=== PATIENT | female | born 1945 | race Caucasian/White ===

== ENCOUNTER → 2016-03-26 | Outpatient (CLI) | payer BC ==
[~2016-03-26] MED LIST: ASCO1CAP3 PO; ASPCH81X PO; CALC500C70 PO; CITA20TA9 PO; GLUCTAB7 PO; NAPR1TAB9 PO; POTA-74 PO; RXC5 PO; TRIA37.5 PO
[2016-03-26 13:59] LABS: BLOOD UREA NITROGEN 22 mg/dl (7-18); BUN/CREATININE RATIO 22.1 (10-20); CALCIUM 9.7 mg/dl (8.5-10.1); CARBON DIOXIDE 27 mmol/L (21-32); CHLORIDE 106 mmol/L (98-107); GLUCOSE 104 mg/dl (70-99); POTASSIUM 3.6 mmol/L (3.5-5.1); SODIUM 142 mmol/L (136-145)
== END ==
LOC: C.LABBC 11:50
PROVIDERS: ATTEND Anesthesiology
DX: Z01.812 Encounter for preprocedural laboratory examination (principal); M25.552 Pain in left hip

== ENCOUNTER 2016-04-22 07:40 | Inpatient (IN) | payer BC, OTHER ==
[2016-03-24 12:59] VITALS: BMI 25.0
--- NOTE | 2016-03-24 13:21 | PAT Medication Instructions ---
Service Date Mar 24, 2016. Current Home Medication List Ascorbic Acid (Vitamin C), 1 CAP PO QAM Aspirin (Aspirin Chewable), 81 MG PO QAM Calcium/Vitamin D (Os-Logan 500 Plus D), 1 TAB PO QAM Citalopram Hydrobromide (Celexa), 20 MG PO QAM Jyohjbtqaqn-Msjwptsaadx-Mqm C- (Glucosamine Chondroitin), 1 TAB PO QAM Naproxen (Aleve), 220 MG PO BID PRN for Pain Potassium Chloride (Potassium Chloride Er), 1 TAB PO QAM Triamterene/Hctz (Dyazide 37.5MG/25MG), 1 CAP PO QAM Medication Instructions For Your Scheduled Surgery - Check with surgeon for instructins: Naproxen (Aleve), 220 MG PO BID PRN for Pain - Hold the following medications 2 weeks prior to surgery: Nwwnjoozvgj-Sxvgporindr-Cqw C- (Glucosamine Chondroitin), 1 TAB PO QAM - Hold the following medications the morning of surgery: Triamterene/Hctz (Dyazide 37.5MG/25MG), 1 CAP PO QAM Potassium Chloride (Potassium Chloride Er), 1 TAB PO QAM Calcium/Vitamin D (Os-Logan 500 Plus D), 1 TAB PO QAM Ascorbic Acid (Vitamin C), 1 CAP PO QAM - Take the following medications the morning of surgery with a sip of water: Citalopram Hydrobromide (Celexa), 20 MG PO QAM Aspirin (Aspirin Chewable), 81 MG PO QAM (okay to continue per surgeon) If you have any questions please call us at [phone] (Lizbeth Almanza PA-C) or [phone] or [phone]
[2016-03-24 13:52] LABS: BASO % 0.3 %; BASO ABS # 0.02 K/uL (0-0.2); COMPLETE YES; EOS % 1.1 %; HEMATOCRIT 41.8 % (37-47); IG% 0.3 %; LYMPH % 21.3 %; MEAN CELL VOLUME 91.7 fL (80-100); MEAN CORPUSCULAR HEMOGLOBIN 31.4 pg (25-34); MEAN CORPUSCULAR HGB CONC 34.2 g/dl (32-36); MEAN PLATELET VOLUME 9.9 fL (7.4-10.4); MONO % 6.9 %; NEUT % 70.1 %; PLATELET COUNT 256 K/uL (130-400); RED BLOOD COUNT 4.56 M/uL (4.2-5.4); WHITE BLOOD COUNT 7.99 K/uL (4.8-10.8)
[2016-03-24 14:05] LABS: URINE APPEARANCE CLEAR (CLEAR); URINE BILIRUBIN NEG (NEG); URINE COLOR YELLOW; URINE NITRITE NEG (NEG); URINE PH 5.5 (4.5-7.5); URINE SPECIFIC GRAVITY 1.009 (1.000-1.030); UROBILINOGEN NEG (NEG)
--- NOTE | 2016-03-24 14:07 | DIAGNOSTIC IMAGING REPORT ---
CHEST PREADMISSION(PA/LAT) CLINICAL HISTORY: Preoperative chest COMPARISON STUDY: 12/25/2013 FINDINGS: The cardiac and mediastinal contours are normal. There is no evidence of focal pulmonary consolidation. There is no evidence of failure. No pleural effusions are visualized.[ IMPRESSION: No active disease in the chest. Electronically signed by: Carlo Tavarez M.D. 03/24/2016 2:05 PM Dictated Date/Time: 03/24/2016 2:04 PM
[2016-03-24 14:08] LABS: INR 1.1 (0.9-1.1); PROTHROMBIN TIME (PATIENT) 11.7 SECONDS (9.0-12.0)
[2016-03-24 14:12] LABS: MANUAL MICROSCOPIC REQUIRED? NO; REVIEW REQ? NO
[2016-03-24 14:24] LABS: BUN/CREATININE RATIO 22.5 (10-20); CALCIUM 9.7 mg/dl (8.5-10.1); CREATININE 1.1 mg/dl (0.60-1.20); POTASSIUM 3.7 mmol/L (3.5-5.1)
--- NOTE | 2016-04-21 17:45 | HISTORY & PHYSICAL EXAMINATION ---
DATE OF ADMISSION: 04/22/2016 HISTORY AND PHYSICAL ADMISSION NOTE CHIEF COMPLAINT: Primary osteoarthritis of the left hip. HISTORY OF PRESENT ILLNESS: Nathalie is a pleasant 70-year-old female who has been having a 6-month history of increasing left hip pain. She does not recall any traumatic event. X-ray showed mild osteoarthritis of the hip, so I sent her for intra-articular injections, which only helped briefly. I then got an MRI which showed significant arthritis of the left hip. After failing conservative treatment, she has elected to proceed with a left total hip arthroplasty. PAST MEDICAL HISTORY: Significant for hypertension, GERD. PAST SURGICAL HISTORY: Significant for umbilical hernia repair. MEDICATIONS: Include Celexa 20 mg daily, potassium 10 mEq daily, Dyazide 37.5/12.5 daily, aspirin 81 mg daily. ALLERGIES: None. FAMILY HISTORY: Noncontributory. SOCIAL HISTORY: She is with 3 children. She tries to remain active. She denies any alcohol, tobacco or IV drug use. REVIEW OF SYSTEMS: She complains of left hip pain. All other pertinent review of systems are negative. PHYSICAL EXAMINATION: GENERAL: She is awake, alert and oriented x3. She is in no apparent distress. She is very pleasant. HEENT: Pupils are equal, round and reactive to light. Extraocular motion intact. Oral mucosa is pink and moist. HEART: Regular rate per radial pulse. LUNGS: Maya symmetrically bilaterally with no audible breath sounds. ABDOMEN: Soft, nontender, nondistended. MUSCULOSKELETAL: On physical examination of the left hip, she ambulates independently. There is no significant limp. She has good range of motion with internal and external rotation, but she does have reproducible groin pain. Her leg lengths are essentially equal. IMAGING DATA: X-rays of the left shoulder do show some mild osteoarthritis with small osteophyte formation and a slight loss of joint space. MRI of the left hip does show more advancing osteoarthritis with significant subchondral edema. IMPRESSION: Moderate to severe osteoarthritis of the left hip. PLAN: Will proceed with a Biomet taper lock left total hip arthroplasty. Postoperatively, she will be kept at the hospital for postoperative medical management and started on aspirin for DVT prophylaxis.
[~2016-04-22] VITALS: Ht 167.6 cm; Wt 69.4 kg
[2016-04-22] VITALS (9 sets, daily range): BP systolic 109–162; BP diastolic 64–84; PULSE 58–86; TEMP 36.3–36.7; O2SAT 97–100; Ht 167.6 cm; Wt 69.4 kg
--- NOTE | 2016-04-22 06:22 | History & Physical Bridge Note ---
H&P Re-Evaluation Bridge Note: I have examined the patient, reviewed the History & Physical and in the interval since the performance of the History & Physical I have noted the following changes of clinical significance: No changes noted
[~2016-04-22 07:40] MED LIST changes: +ACETAMINOPHEN 500 MG TAB PO SCH; +BUPIVACAINE 0.5 % 5 MG/1 ML PF 10ML VIAL ONE; +CEFAZOLIN 2000 MG/60 ML D5W 60 ML IV SCH; +FAMOTIDINE 20 MG TAB PO SCH; +GABAPENTIN 300 MG CAP PO SCH; +LACTATED RINGER'S 1000ML 1,000 ML IV SCH; +LACTATED RINGER'S 1000ML IV SCH; +ROPIVACAINE 5MG/ML 30 ML 150 MG, BUPIVACAINE/EPINEPHR 0.5% MPF 30 ML, KETOROLAC TROMETH... INFIL SCH; -RXC5 PO
[2016-04-22] MEDS ORDERED: LIDOCAINE HCL 2% 2 ML VIAL (20MG/ML) ONE (07:47)
[2016-04-22] MEDS ORDERED: MIDAZOLAM HCL 1 MG/ML 2ML VIAL ONE (07:47)
[2016-04-22] MEDS ORDERED: PROPOFOL IV EMULSION 10 MG/ML 20 ML VIAL IV ONE (07:47)
[2016-04-22] MEDS ORDERED: FENTANYL CITRATE INJ 50 MCG/1 ML 2 ML VIAL ONE (07:48)
[2016-04-22] MEDS ORDERED: NURSING VERBAL MED ORDER STA (09:16)
[2016-04-22] MEDS ORDERED: ONDANSETRON INJ 2 MG/ML 2 ML VIAL IV PRN ×2 (09:30→12:15)
[2016-04-22] MEDS ORDERED: FENTANYL CITRATE INJ 50 MCG/1 ML 2 ML VIAL IV PRN (09:30)
[2016-04-22] MEDS ORDERED: EpHEDrine SULFATE INJ 50 MG/ML AMP IV PRN (09:30)
[2016-04-22] MEDS ORDERED: ATROPINE SULFATE 0.1 MG/ML 5ML SYR IV PRN (09:30)
[2016-04-22] MEDS ORDERED: BACITRACIN 50000 UNIT VIAL ONE (09:42)
[2016-04-22] MEDS ORDERED: ORTHO JOINT ANESTHETIC ONE (09:42)
[2016-04-22] MEDS: TRANEXAMIC ACID AMP 1,000 MG in NSS 100ML IV SCH ×2 (10:00→13:42)
[2016-04-22] MEDS ORDERED: PHENYLEPHRINE 100MCG/ML 5ML SYR ONE (11:32)
[2016-04-22] MEDS ORDERED: ESMOLOL HCL 10 MG/ML 10 ML VIAL ONE (11:48)
--- NOTE | 2016-04-22 12:09 | [facility] Post Operative Brief Note ---
Immediate Operative Summary Operative Date Apr 22, 2016. Pre-Operative Diagnosis Moderate to severe osteoarthritis of the left hip Post-Operative Diagnosis Moderate to severe osteoarthritis of the left hip Procedure(s) Performed Total left hip arthroplasty, direct anterior approach Surgeon Dr. Jeison Villa Filler Picker Surgeon(s) Dr. Murali Green Estimated Blood Loss 50ML Findings as above Specimens A: Left femoral head Complication(s) None Disposition Recovery Room / PACU
[2016-04-22] MEDS ORDERED: MAGNESIUM HYDROXIDE SUSP 30 ML UDC PO PRN (12:15)
[2016-04-22] MEDS ORDERED: SOD PHOSPHATE/SOD BIPHOSPHATE ENEMA 132 ML BTL PR PRN (12:15)
[2016-04-22] MEDS ORDERED: SILVER SULFADIAZINE 1% CR 50 GM JAR EXT PRN (12:15)
[2016-04-22] MEDS ORDERED: MoRPHine SULFATE 2 MG/ML CARP IV PRN (12:15)
[2016-04-22] MEDS ORDERED: OXYCODONE HCL IR 5 MG TAB (IMMEDIATE RELEASE) PO PRN (12:15)
[2016-04-22] MEDS ORDERED: METOCLOPRAMIDE HCL INJ 5 MG/ML 2 ML VIAL IV PRN (12:15)
--- NOTE | 2016-04-22 12:26 | DIAGNOSTIC IMAGING REPORT ---
INTRAOPERATIVE LEFT HIP SINGLE VIEW CLINICAL HISTORY: Left hip arthroplasty COMPARISON STUDY: No previous studies for comparison. FINDINGS: 41 seconds of fluoroscopic time was utilized. A single AP intraoperative fluoroscopic spot image is provided for interpretation. There are postsurgical changes of a total left hip arthroplasty. No dislocation is evident. IMPRESSION: Intraoperative fluoroscopic spot image demonstrating postsurgical changes of a total left hip arthroplasty Electronically signed by: Carlo Tavarez M.D. 04/22/2016 12:24 PM Dictated Date/Time: 04/22/2016 12:24 PM
--- NOTE | 2016-04-22 12:36 | OPERATIVE REPORT ---
DATE OF OPERATION: 04/22/2016 PREOPERATIVE DIAGNOSIS: Progressing osteoarthritis of the left hip. POSTOPERATIVE DIAGNOSIS: Same. PROCEDURE: Left total hip arthroplasty through a direct anterior approach. SURGEON: Dr. Jeison Villa. LIVING ADVISOR: Brandon Kwok PA-C, whose assistance was necessary for positioning of the leg and helping with instrumentation as well as Dr. Earle Green M.D. ANESTHESIA: Spinal. COMPLICATIONS: None. CONDITION: Stable to PACU. IMPLANTS USED: I used a Biomet Taperloc size 12 high offset femoral component with a size 50 G7 cup, a single 30 mm screw, a 36 mm neutral E1 liner and a 36 mm -3 ceramic head. No cement was used during the case. INDICATIONS: Nathalie is a pleasant 70-year-old female who presented to my office with progressive left hip and groin pain. X-rays did not look too bad but MRI showed advanced osteoarthritis of the hip. After failing conservative treatment including hip injections, she elected to undergo a total hip arthroplasty. OPERATION AND FINDINGS: On 04/22/2016 she arrived at [facility] for the above procedure. She was seen in the preoperative holding area and the operative extremity was identified and signed. She was given a preoperative antibiotic and taken back to the operating room, laid on the table in supine position and put under basic sedation. The left hip was then prepped and draped in sterile fashion. Time-out was done and the patient and operative extremity was properly identified. A direct anterior approach was used. Dissection was taken down to the tensor fascia and the tensor muscle and sartorius were split. The rectus was released off the anterior femoral neck and the capsule was exposed. The circumflex vessels were tied off and ligated. The capsule was then released and tagged. The femoral neck was then resected and the femoral head was removed. The acetabulum was then exposed. Time was spent doing a complete circumferential capsular and labral release. Sequential reaming up to a size 49 reamer was done. Adequate placement of the cup was checked under fluoroscopy. A size 50 cup was then impacted into place and a single 30 mm anterior rotational screw was placed. She 81 poly liner was then snapped into place. The proximal femur was then exposed. Sequential broaching up to a size 12 broach was done. A standard head was first trialled. It felt a little bit long, so a -3 head was trialled and I was happy with the leg length. This was all checked on fluoroscopic imaging. The final size 12 high offset Taperloc stem was then impacted into place followed by a ceramic 36 mm -3 head. The hip was reduced and I was happy with the overall leg lengths. The wound was irrigated with normal saline solution. The surrounding soft tissues were injected with 100 mL of an orthopedic pain control cocktail mix. The capsule was then closed with #1 Vicryl, the fascia was closed with #1 Vicryl, skin was closed with 2-0 Vicryl and 3-0 V-Loc suture and Prineo dressing. A drain was placed. She was then extubated, [facility] and taken to the postanesthesia care unit in stable condition. She tolerated the procedure well. I attest to the content of the Intraoperative Record and any orders documented therein. Any exceptio ns are noted below.
--- NOTE | 2016-04-22 12:41 | Anesthesiology Progress Note ---
Anesthesia Post Op Note Date & Time Apr 22, 2016 at 12:41 Vital Signs Pain Intensity: 0 Vital Signs Past 12 Hours Date Time Temp Pulse Resp B/P Pulse Ox O2 Delivery O2 Flow Rate FiO2 04/22/16 12:30 92 14 120/72 100 Nasal Cannula 3 04/22/16 12:20 90 14 126/71 100 Nasal Cannula 3 04/22/16 12:17 36.1 100 16 116/84 100 Nasal Cannula 3 04/22/16 07:59 36.3 69 20 162/78 99 Room Air Notes Mental Status: alert / awake / arousable, participated in evaluation Pt Amnestic to Procedure: Yes Nausea / Vomiting: adequately controlled Pain: adequately controlled Airway Patency, RR, SpO2: stable & adequate BP & HR: stable & adequate Hydration State: stable & adequate Neuraxial Anesthesia: was administered, sensory block is resolving Anesthetic Complications: no major complications apparent
--- NOTE | 2016-04-22 13:03 | DIAGNOSTIC IMAGING REPORT ---
LEFT PELVIS/UNILATERAL HIP 1 VIEW CLINICAL HISTORY: Left hip arthritis. Total hip arthroplasty. COMPARISON: MRI of the left hip February 13, 2016. FINDINGS: Alignment of the total left hip arthroplasty is anatomic. There is no fracture or unexpected radiopaque foreign body. Acetabular screw is present. There is a surgical drain. IMPRESSION: Expected findings following total left hip arthroplasty. Electronically signed by: Hieu Frank M.D. 04/22/2016 1:01 PM Dictated Date/Time: 04/22/2016 1:01 PM
[2016-04-22] MEDS ORDERED: NURSING VERBAL MED ORDER ONE (14:45)
[2016-04-22] MEDS ORDERED: COUGH DROP (SUGAR FREE) LOZ 24 LOZ/1 BOX PO PRN (15:00)
[2016-04-22] MEDS: D5W AND 1/2NSS + 20MEQ KCL 1,000 ML IV SCH (16:10)
[2016-04-22] MEDS: KETOROLAC TROMETHAMINE 15 MG/ML VIAL IV. SCH ×2 (17:46→23:50)
[2016-04-22] MEDS: CEFAZOLIN IV 2,000 MG in DEXTROSE 5% 50ML 50 ML IV SCH (17:46)
[2016-04-22] MEDS: ASPIRIN 325 MG ECTAB PO SCH (21:11)
[2016-04-22] MEDS: DOCUSATE SODIUM 100 MG CAP PO SCH (21:12)
[2016-04-22] MEDS: ACETAMINOPHEN IV 1,000 MG in EMPTY BAG 0 ML IV SCH (21:12)
[2016-04-22] MEDS: SENNA 8.6 MG TAB PO SCH (21:12)
[2016-04-23] MEDS: CEFAZOLIN IV 2,000 MG in DEXTROSE 5% 50ML 50 ML IV SCH (01:41)
[2016-04-23] MEDS: D5W AND 1/2NSS + 20MEQ KCL 1,000 ML IV SCH ×2 (01:41→11:11)
[2016-04-23 03:37] VITALS: BP 105/56; PULSE 69; TEMP 36.8; O2SAT 97
[2016-04-23] MEDS: KETOROLAC TROMETHAMINE 15 MG/ML VIAL IV. SCH ×4 (05:54→23:52)
[2016-04-23] MEDS: ACETAMINOPHEN IV 1,000 MG in EMPTY BAG 0 ML IV SCH ×2 (05:55→14:17)
[2016-04-23 07:19] LABS: BASO % 0.1 %; BASO ABS # 0.01 K/uL (0-0.2); COMPLETE YES; EOS % 0.1 %; HEMATOCRIT 32.8 % (37-47); IG% 0.3 %; LYMPH % 7.1 %; LYMPH ABS # 1.09 K/uL (1.2-3.4); MEAN CELL VOLUME 90.4 fL (80-100); MEAN CORPUSCULAR HEMOGLOBIN 31.1 pg (25-34); MEAN CORPUSCULAR HGB CONC 34.5 g/dl (32-36); MEAN PLATELET VOLUME 9.7 fL (7.4-10.4); MONO % 8.4 %; PLATELET COUNT 194 K/uL (130-400); RED BLOOD COUNT 3.63 M/uL (4.2-5.4)
[2016-04-23 07:28] VITALS: BP 107/62; PULSE 70; TEMP 36.5; O2SAT 97
--- NOTE | 2016-04-23 07:49 | Anesthesiology Progress Note ---
Anesthesia Post Op Note Date & Time Apr 23, 2016 at 07:49 Vital Signs Vital Signs Past 12 Hours Date Time Temp Pulse Resp B/P Pulse Ox O2 Delivery O2 Flow Rate FiO2 04/23/16 07:28 36.5 70 19 107/62 97 Room Air 04/23/16 03:37 36.8 69 16 105/56 97 Room Air 04/22/16 23:46 Room Air 04/22/16 23:03 36.7 80 16 109/64 97 Notes Mental Status: alert / awake / arousable, participated in evaluation Pt Amnestic to Procedure: Yes Nausea / Vomiting: adequately controlled Pain: adequately controlled Airway Patency, RR, SpO2: stable & adequate BP & HR: stable & adequate Hydration State: stable & adequate Neuraxial Anesthesia: was administered, sensory block resolved Anesthetic Complications: no major complications apparent
[2016-04-23 07:52] LABS: BUN/CREATININE RATIO 15.2 (10-20); CALCIUM 8.3 mg/dl (8.5-10.1); CREATININE 1.1 mg/dl (0.60-1.20); POTASSIUM 3.6 mmol/L (3.5-5.1)
[2016-04-23] MEDS: DOCUSATE SODIUM 100 MG CAP PO SCH ×2 (09:43→21:28)
[2016-04-23] MEDS: ASCORBIC ACID 500 MG TAB PO SCH (09:44)
[2016-04-23] MEDS: CITALOPRAM 20 MG TAB PO SCH (09:44)
[2016-04-23] MEDS: TRIAMTERENE/HCTZ 37.5/25MG CAP PO SCH (09:44)
[2016-04-23] MEDS: CALCIUM 600MG + VIT D 400 IU TAB PO SCH (09:45)
[2016-04-23] MEDS: PANTOprazole SOD 40 MG TAB PO SCH (09:45)
[2016-04-23] MEDS: ASPIRIN 325 MG ECTAB PO SCH ×2 (09:45→21:28)
[2016-04-23 10:58] VITALS: BP 119/72; PULSE 73; TEMP 36.6; O2SAT 99
[2016-04-23 15:03] VITALS: BP 118/71; PULSE 73; TEMP 36.8; O2SAT 96
[2016-04-23 15:15] VITALS: O2SAT 96
--- NOTE | 2016-04-23 15:51 | Discharge Instructions ---
Discharge Instructions Admission Reason for Admission: Left Hip Osteoarthritis Discharge Discharge Diagnosis / Problem: L MONI Discharge Goals Goal(s): Decrease discomfort, Improve function Activity Recommendations Activity Limitations: resume your previous activity Shower/Bathe: may shower/bathe in 3 days may shower on Wednesday, leave glue dressing in place . Instructions / Follow-Up Instructions / Follow-Up in [address] Villa Current Hospital Diet Patient's current hospital diet: Regular Diet Discharge Diet Recommended Diet: Regular Diet Procedures Procedures Performed: Total left hip arthroplasty, direct anterior approach Pending Studies Studies pending at discharge: no Medical Emergencies . Who to Call and When: Medical Emergencies: If at any time you feel your situation is an emergency, please call 911 immediately. . Non-Emergent Contact Non-Emergency issues call your: Surgeon Call Non-Emergent contact if: wound has increased drainage, wound has increased redness . "Provider Documentation" section prepared by Jeison Villa. VTE Core Measure Inpt VTE Proph given/why not?: Other Anticoagulation (Aspirin 325 twice a day for 6 weeks)
[2016-04-23] MEDS ORDERED: RXC5 PO (15:52)
--- NOTE | 2016-04-23 16:02 | PROGRESS NOTE ---
DATE: 04/23/2016 DATE: 04/23/2016. CHIEF COMPLAINT: Status post left total hip arthroplasty postop day #1. PROGRESS: Nathalie was seen and examined at bedside today. Overall, she is doing very well. She says she has little to no pain in her hip. She has been ambulating around the nurses' station. She has no complaints. PHYSICAL EXAMINATION: LEFT HIP: The dressing is clean and dry and the drain is to suction. She has no numbness over the femoral cutaneous nerve. She has active dorsiflexion and plantarflexion of her left ankle. Her leg lengths are essentially equal. LABORATORIES: She has an H\T\H today of 11.3 and 32.8. Her glucose is 146. Her vital signs are all stable on room air. She is voiding on her own. X-rays postoperatively of the left hip show the prosthesis to be in near anatomic alignment without any evidence of fracture, dislocation or loosening. IMPRESSION: Status post left total hip arthroplasty postop day #1. PLAN: At this point, she is doing extremely well. She is very happy with her progress. She has little to no pain in her hip. She can continue to be up and ambulating. Tomorrow the nursing staff will change her dressing, pull the drain so we can discharge her to home.
[2016-04-23] MEDS: SENNA 8.6 MG TAB PO SCH (21:28)
[2016-04-23 22:56] VITALS: BP 130/79; PULSE 87; TEMP 37.2; O2SAT 98
[2016-04-24] MEDS: KETOROLAC TROMETHAMINE 15 MG/ML VIAL IV. SCH ×2 (05:37→11:44)
[2016-04-24 06:34] VITALS: BP 138/73; PULSE 87; TEMP 37.3; O2SAT 95
--- NOTE | 2016-04-24 06:57 | PROGRESS NOTE ---
DATE: 04/24/2016 CHIEF COMPLAINT: Status post left total hip arthroplasty postop day #2. PROGRESS: Nathalie was seen and examined at bedside today. Overall, she is doing very well. She really has no pain in her hip. She has been up and ambulating with physical therapy. She has no complaints. PHYSICAL EXAMINATION: LEFT HIP: The dressing has been changed and drain has been pulled. The Prineo dressing is intact and looks good. She is neurovascularly intact. IMPRESSION: Two weeks status post left total hip arthroplasty. PLAN: At this point, she is doing very well. She is happy with her progress. She has very little pain in her hip. We are going to discharge her to home later this morning.
--- NOTE | 2016-04-24 07:15 | DISCHARGE SUMMARY ---
DISCHARGE DIAGNOSIS: Primary osteoarthritis of the left hip. PROCEDURE: Left total hip arthroplasty on 04/22/[address] Villa. DISCHARGE INSTRUCTIONS: 1. Oxycodone 5-10 mg every 4 hours as needed for pain. 2. Aspirin 325 mg twice a day for DVT prophylaxis. 3. Knee high RUI hose stockings for 6 weeks. 4. Follow up with Dr. Villa in 2 weeks. 5. Call the office of Dr. Villa with any questions or concerns. 6. Vitamin C 500 mg daily. 7. Os-Logan 500 mg daily. 8. Celexa 20 mg daily. 9. Glucosamine chondroitin daily. 10. Aleve 220 mg twice a day. 11. Potassium 10 mEq daily. 12. Dyazide 37.5/25 mg daily. HOSPITAL COURSE: Nathalie is a pleasant 70-year-old female who presented to my office with increasing left hip pain. X-rays and MRI were indicative of progressive arthritis, left hip. After failing conservative treatment, she elected to undergo a left total hip arthroplasty. On 04/22/2016 she arrived at [facility] for the above procedure. She was seen in the preoperative holding area and the operative extremity was identified and signed. She laid on the table in supine position with a spinal anesthetic. She then underwent a left total hip arthroplasty through a direct anterior approach without complications. Postoperatively, she was discharged to general orthopedic floor. Her hospital course was uneventful. On postop day #1 her H\T\H was stable at 11.3 and 32.8. She was up and ambulating well with physical therapy. Her vital signs were stable. On postop day #2 she continued to do well. The dressings were changed, the drain was pulled and she was subsequently discharged to home with the above instructions.
[2016-04-24] MEDS: CALCIUM 600MG + VIT D 400 IU TAB PO SCH (07:48)
[2016-04-24] MEDS: CITALOPRAM 20 MG TAB PO SCH (07:48)
[2016-04-24] MEDS: TRIAMTERENE/HCTZ 37.5/25MG CAP PO SCH (07:48)
[2016-04-24] MEDS: ASCORBIC ACID 500 MG TAB PO SCH (07:48)
[2016-04-24] MEDS: PANTOprazole SOD 40 MG TAB PO SCH (07:49)
[2016-04-24] MEDS: ASPIRIN 325 MG ECTAB PO SCH (09:14)
[2016-04-24] MEDS: DOCUSATE SODIUM 100 MG CAP PO SCH (09:14)
[2016-04-24 10:50] VITALS: BP 138/73; PULSE 87; TEMP 37.3; O2SAT 95
== END 2016-04-24 14:01 | disposition home health service (06) | DRG 470 ==
LOC: ENRESERVDT → ENRESERVTM → C.ACU 07:40 → C.MSW 09:45
PROVIDERS: ADMIT Orthopaedic Surgery; ATTEND Orthopaedic Surgery
PROC: 0SRB04A Replacement of Left Hip Joint with Ceramic on Polyethylene Synthetic Substitute, Uncemented, Open Approach (ICD-10-PCS; principal; 2016-04-22 09:45)
DX: M16.12 Unilateral primary osteoarthritis, left hip (principal); I10 Essential (primary) hypertension; F41.9 Anxiety disorder, unspecified; M81.0 Age-related osteoporosis without current pathological fracture; Z79.82 Long term (current) use of aspirin; Z79.899 Other long term (current) drug therapy

== ENCOUNTER → 2016-09-11 | Outpatient (CLI) | payer BC ==
[~2016-09-11] MED LIST changes: -ACETAMINOPHEN 500 MG TAB PO SCH; -ASPCH81X PO; -BUPIVACAINE 0.5 % 5 MG/1 ML PF 10ML VIAL ONE; -CEFAZOLIN 2000 MG/60 ML D5W 60 ML IV SCH; -FAMOTIDINE 20 MG TAB PO SCH; -GABAPENTIN 300 MG CAP PO SCH; -LACTATED RINGER'S 1000ML 1,000 ML IV SCH; -LACTATED RINGER'S 1000ML IV SCH; -ROPIVACAINE 5MG/ML 30 ML 150 MG, BUPIVACAINE/EPINEPHR 0.5% MPF 30 ML, KETOROLAC TROMETH... INFIL SCH; +RXC5 PO
--- NOTE | 2016-09-11 12:44 | MAMMOGRAPHY REPORT ---
BILATERAL DIGITAL SCREENING MAMMOGRAM WITH CAD: 09/11/2016 CLINICAL HISTORY: Routine screening. TECHNIQUE: Current study was also evaluated with a Computer Aided Detection (CAD) system. Bilateral CC and MLO views were obtained. COMPARISON: Comparison is made to exams dated: 09/10/2015 mammogram, 09/05/2014 mammogram, 05/15/2013 ma mmogram, 05/12/2012 mammogram, 04/22/2011 mammogram, and 04/21/2010 mammogram - [facility] nter. BREAST COMPOSITION: There are scattered areas of fibroglandular density in both breasts. FINDINGS: No suspicious masses, calcifications, or areas of architectural distortion are noted in ei ther breast. There has been no significant interval change compared to prior exams. Bilateral benign -appearing calcifications are not significantly changed. Small circumscribed benign-appearing right breast masses are also stable. IMPRESSION: ACR BI-RADS CATEGORY 2: BENIGN There is no mammographic evidence of malignancy. A 1 year screening mammogram is recommended. The pa tient will receive written notification of the results. Approximately 10% of breast cancers are not detected with mammography. A negative mammographic report should not delay biopsy if a clinically suggestive mass is present. Ines Abbasi M.D. ah/:09/11/2016 08:08:00 Storeroom Supervisor: Cynthia NELSON(Ezekiel)(M), [facility] letter sent: Normal 1/2 BI-RADS Code: ACR BI-RADS Category 2: Benign
== END | disposition home or self-care (01) ==
LOC: C.MAMM 07:33
PROVIDERS: ATTEND Obstetrics & Gynecology
DX: Z12.31 Encounter for screening mammogram for malignant neoplasm of breast (principal)

== ENCOUNTER → 2016-12-03 | Outpatient (CLI) | payer BC ==
[2016-12-03 13:40] LABS: BASO % 0.3 %; BASO ABS # 0.02 K/uL (0-0.2); COMPLETE YES; EOS % 1.2 %; HEMATOCRIT 42.8 % (37-47); IG% 0.2 %; LYMPH % 23.4 %; LYMPH ABS # 1.53 K/uL (1.2-3.4); MEAN CELL VOLUME 93.2 fL (80-100); MEAN CORPUSCULAR HEMOGLOBIN 31.4 pg (25-34); MEAN CORPUSCULAR HGB CONC 33.6 g/dl (32-36); MEAN PLATELET VOLUME 10.2 fL (7.4-10.4); MONO % 10.1 %; NEUT % 64.8 %; PLATELET COUNT 264 K/uL (130-400); RED BLOOD COUNT 4.59 M/uL (4.2-5.4); WHITE BLOOD COUNT 6.55 K/uL (4.8-10.8)
[2016-12-03 14:07] LABS: ALT/SGPT 29 U/L (12-78); BLOOD UREA NITROGEN 22 mg/dl (7-18); BUN/CREATININE RATIO 22.4 (10-20); CALCIUM 9.8 mg/dl (8.5-10.1); CARBON DIOXIDE 28 mmol/L (21-32); CHLORIDE 107 mmol/L (98-107); CHOLESTEROL 216 mg/dl (0-200); GLUCOSE 104 mg/dl (70-99); SODIUM 141 mmol/L (136-145); TRIGLYCERIDES 188 mg/dl (0-150); VERY LOW DENSITY LIPOPROT CALC 38 mg/dl
[2016-12-03 14:18] LABS: ALB/GLOB RATIO 1.3 (0.9-2); ALKALINE PHOSPHATASE 91 U/L (45-117); AST/SGOT 19 U/L (15-37); CHOLESTEROL/HDL RATIO 4.6; HDL CHOLESTEROL 47 mg/dl; LDL CHOLESTEROL CALCULATED 131 mg/dl
== END | disposition home or self-care (01) ==
LOC: C.LABBC 10:28
PROVIDERS: ATTEND Internal Medicine
DX: M81.0 Age-related osteoporosis without current pathological fracture (principal); K21.9 Gastro-esophageal reflux disease without esophagitis; F41.1 Generalized anxiety disorder; E04.1 Nontoxic single thyroid nodule; Z78.0 Asymptomatic menopausal state; I10 Essential (primary) hypertension

== ENCOUNTER 2018-02-14 07:30 | Inpatient (IN) ==
[2018-02-14] MEDS ORDERED: MoRPHine SULFATE 2 MG/ML CARP IV PRN (09:28)
[2018-02-14] MEDS ORDERED: MoRPHine SULFATE 4 MG/ML 1 ML CARP\\VIAL IV PRN (09:28)
[2018-02-14] MEDS ORDERED: ONDANSETRON INJ 2 MG/ML 2 ML VIAL IV PRN ×2 (09:28→14:54)
[2018-02-14] MEDS ORDERED: D5NSS + 20MEQ KCL 20 MEQ/1,000 ML BAG IV SCH (11:30)
--- NOTE | 2018-02-14 12:02 | Gastrointestinal Consultation ---
Date of Consultation February 14, 2018 Assessment & Plan (1) Elevated liver enzymes: 72 year old female with elevated LFTs, improving abdominal pain, resolved nausea/vomiting imaging concerning for gallstones w/ biliary dilation. Her LFTs have been increasing. - Will review labs today when they are available - Hold MRCP - Will plan for ERCP today - Keep NPO - Analgesia PRN - Antiemetics PRN - Indocin 100 mg PA on hold to the OR - GI to follow. Thank you for allowing us to participate in the care of this patient. Please call with any acute changes, questions or concerns. Please see addendum below with additional recommendation from my supervising physician. Supervising Physician Co-Signing Physician Notes I performed a history and physical examination of the patient, including specifically on physical exam - soft, nontender abdomen. I have discussed the patient's management with Jane. Please refer to the nurse practitioner's note for the documented findings and plan of care. 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 Plan: ERCP today to decompress her CBD. EUS/ FNA as OP. History of Present Illness Reason for Consultation: elevated transaminasas Requesting Physician: Karyn Attending Physician: Rodney Boss MD, FACS History of Present Illness 72 year old female with history of GERD, HTN who presents as a direct admission for concerns of choledocolithiasis. Pt was seen and evalated, chart reviewed. Notes she has been having epigastric abdominal pain w/ radiation to her back associated w/ nausea and vomiting. Notes her nausea/vomiting resolved but has persistent RUQ pain and back pain. Moving bowels well. No black or bloody stools. No fever but has had chills. No CP, SOB. No blood thinners ASA 81 daily TB trending up GB US: Mildly distended gallbladder with large amount of gallbladder sludge and mild shadowing cholelithiasis. No sonographic evidence of acute cholecystitis. Mild intrahepatic biliary ductal dilation is again noted along with dilation of the common bile duct. If there is clinical concern for choledocholithiasis a follow-up ERCP may be considered.Indeterminate 1.6 cm lesion of the inferior pole right kidney redemonstrated. Liver US: Mildly distended gallbladder with associated cholelithiasis and gallbladder sludge. No sonographic evidence of acute cholecystitis. Mild intrahepatic biliary ductal dilation is noted in conjunction with dilation of the common bile duct. No obstructing stone or lesion identified on these images. These findings could be correlated with ERCP if of further clinical concern. Indeterminate 2.1 cm lesion of the inferior pole right kidney. This finding could be correlated with a follow-up nonemergent CT renal mass protocol to exclude underlying neoplasm. Allergies Allergy/AdvReac Type Severity Reaction Status Date / Time No Known Allergies Allergy Verified 02/10/18 17:37 Home Medications Home Medications Medication Instructions Recorded Confirmed Type ascorbic acid (vitamin C) [Vitamin 500 mg PO DAILY 02/10/18 02/10/18 History C] calcium carbonate-vitamin D3 1 tab PO QAM 02/10/18 02/10/18 History [Calcium 500 + D] citalopram 20 mg PO DAILY 02/10/18 02/10/18 History glucosamine-chondroitin 1 tab PO DAILY 02/10/18 02/10/18 History naproxen sodium [Aleve] 220 mg PO BID PRN 02/10/18 02/10/18 History omeprazole 20 mg PO DAILY 02/10/18 02/10/18 History potassium chloride [Klor-Con M10] 10 meq PO DAILY 02/10/18 02/10/18 History ranitidine HCl [Zantac Maximum 150 mg PO HS 02/10/18 02/10/18 History Strength] triamterene-hydrochlorothiazid 1 cap PO DAILY 02/10/18 02/10/18 History Patient History Medical History Anxiety Depression H/O gastroesophageal reflux (GERD) Hearing deficit Hypertension Osteoarthritis Skin cancer Surgical History History of total hip arthroplasty April 2016 History of herniorrhaphy Social History Current Living Situation: Family Current Living Situation Comment: lives with daughter Other Information That Helps Us Care for You: No Feels Safe at Home: Yes Safety Concerns: Feels Safe At This Time Smoking Status: Never smoker Do You Dip or Chew Tobacco: No Hx Alcohol Use: No Hx Substance Use: No Beliefs That Will Affect Care: None Preferred Language: Israeli Communication Ability: Effective [employer] Essbase Developer Required: No Review of Systems Constitutional: no fever and no chills Respiratory: no cough and no chest congestion Cardiovascular: no chest pain, no palpitations and no syncope Gastrointestinal: no abdominal pain, no early satiety, no vomiting, no blood in stools and no melena Physical Exam 2 Vital Signs (Past 24 Hours): Last Vital Signs Temp 36.3 C L 02/14/18 11:34 Resp 18 02/14/18 11:34 BP 148/74 H 02/14/18 11:34 Pulse Ox 99 02/14/18 11:34 Constitutional: well developed, well nourished, cooperative and comfortable Respiratory: normal respiratory effort, lungs clear to auscultation Cardiovascular: RRR, no murmur, no edema Gastrointestinal (Abdomen): normal bowel sounds, soft, nontender, no hepatosplenomegaly Skin: + jaundice Results & Data Laboratory Results 02/14/18 02/14/18 Range/Units 11:48 11:48 WBC 6.88 (4.8-10.8) K/uL RBC 4.61 (4.2-5.4) M/uL Hgb 14.6 (12.0-16.0) g/dL Hct 43.3 (37-47) % MCV 93.9 (80-100) fL MCH 31.7 (25-34) pg MCHC 33.7 (32-36) g/dL RDW Std Deviation 43.8 (36.4-46.3) fL RDW Coeff of Td 12.8 (11.5-14.5) % Plt Count 287 (130-400) K/uL MPV 10.7 H (7.4-10.4) fL Immature Gran % (Auto) 0.3 % Neut % (Auto) 64.3 % Lymph % (Auto) 21.7 % Dubois % (Auto) 11.9 % Eos % (Auto) 1.5 % Baso % (Auto) 0.3 % Immature Gran # (Auto) 0.02 (0.00-0.02) K/uL Neut # (Auto) 4.43 (1.4-6.5) K/uL Lymph # (Auto) 1.49 (1.2-3.4) K/uL Dubois # (Auto) 0.82 H (0.11-0.59) K/uL Eos # (Auto) 0.10 (0-0.5) K/uL Baso # (Auto) 0.02 (0-0.2) K/uL Sodium Pending Potassium Pending Chloride Pending Carbon Dioxide Pending Anion Gap Pending BUN Pending Creatinine Pending Est Cr Clr Drug Dosing Pending Est GFR ( Amer) Pending Est GFR (Non-Af Amer) Pending BUN/Creatinine Ratio Pending Glucose Pending Calcium Pending Total Bilirubin Pending Direct Bilirubin Pending AST Pending ALT Pending Alkaline Phosphatase Pending Total Protein Pending Albumin Pending Lipase Pending
[2018-02-14 12:03] LABS: Basophils # (auto) 0.02 K/uL (0-0.2); Basophils % (auto) 0.3 %; Eosinophils % (auto) 1.5 %; Hematocrit (blood only) 43.3 % (37-47); Hemoglobin 14.6 g/dL (12.0-16.0); Immature Granulocytes # (auto) 0.02 K/uL (0.00-0.02); Immature Granulocytes % (auto) 0.3 %; Lymphocytes # (auto) 1.49 K/uL (1.2-3.4); Lymphocytes % (auto) 21.7 %; Mean Corpuscular Hgb Conc 33.7 g/dL (32-36); Mean Corpuscular Volume 93.9 fL (80-100); Mean Platelet Volume 10.7 fL (7.4-10.4); Monocytes # (auto) 0.82 K/uL (0.11-0.59); Monocytes % (auto) 11.9 %; Neutrophils # (auto) 4.43 K/uL (1.4-6.5); Neutrophils % (auto) 64.3 %; Platelet Count 287 K/uL (130-400); RDW Coefficient of Variation 12.8 % (11.5-14.5); RDW Standard Deviation 43.8 fL (36.4-46.3); Red Blood Count 4.61 M/uL (4.2-5.4); White Blood Count 6.88 K/uL (4.8-10.8)
[2018-02-14 12:27] LABS: Alanine Aminotransferase 420 U/L (12-78); Albumin Level 4.4 gm/dl (3.4-5.0); Aspartate Aminotransferase 181 U/L (15-37); BUN Creatinine Ratio 19.6 (10-20); Bilirubin Direct 3.2 mg/dl (0-0.2); Blood Urea Nitrogen 24 mg/dl (7-18); Calcium 9.8 mg/dl (8.5-10.1); Carbon Dioxide 30 mmol/L (21-32); Chloride 104 mmol/L (98-107); Est GFR (African American) 50.5; Est GFR (Non-African American) 43.6; Glucose 118 mg/dl (70-99); Potassium 3.9 mmol/L (3.5-5.1); Sodium 140 mmol/L (136-145)
[2018-02-14 12:30] LABS: Alkaline Phosphatase 224 U/L (45-117); Bilirubin,Total 4.4 mg/dl (0.1-1); Total Protein 8.1 gm/dl (6.4-8.2)
--- NOTE | 2018-02-14 13:44 | Magnetic Resonance Report ---
MRCP CLINICAL HISTORY: Elevated hepatic transaminases. Cholelithiasis. Upper abdominal pain. Nausea and vo miting. COMPARISON STUDY: Abdominal ultrasound dated 02/10/2018. TECHNIQUE: Abdominal MRCP is performed utilizing various T2-weighted sequences in the axial and coron al planes. IV contrast was not administered for this examination. 3-D reformats are created and asses sed. FINDINGS: The gallbladder is distended and contains layering sludge and gallstones. There is intra and extrahep atic biliary ductal dilatation. The proximal common bile duct is dilated and measures up to 12 mm in diameter. Additionally, the majority of the pancreatic duct is dilated and irregular. This measures up to 3.5 mm. There is focal cutoff of the pancreatic duct in the region of the pancreatic head as we ll as the common bile duct in this region secondary to a pancreatic head mass. This measures approxim ately 4 x 3 x 3 cm, and is best seen on coronal FIESTA image #9. There is no convincing evidence of c holedocholithiasis. The hepatic parenchyma is normal as imaged. The spleen is normal in size. Scattered T2 hyperintense s plenic lesions measure up to 10 mm. These are pathologically indeterminant but statistically of doubt ful significance. A 1.4 cm right adrenal nodule likely represents an adenoma but cannot be definitive ly characterized on today's examination. The kidneys demonstrate cortical atrophy. There are scattere d renal cortical cysts. A 2.2 cm complex lesion arises exophytically from the lower pole of the right kidney seen on image #19. The abdominal aorta is normal in caliber. No bowel obstruction is seen. T here is no abdominal ascites. No pleural effusion is identified. No destructive bony lesion is seen. IMPRESSION: 1. There is dilatation of the common bile duct, the intrahepatic ducts, and the pancreatic duct secon bobby to a mass lesion in the pancreatic head. This should be considered pancreatic adenocarcinoma unt il proven otherwise. 2. There is a 2.2 cm exophytic lesion arising from the lower pole of the right kidney. Although this could represent a complex cyst, this is incompletely characterized and the appearance is concerning f or a renal cell carcinoma. 3. Consider endoscopic ultrasound with biopsy for further assessment of the pancreatic head mass. A c ontrast-enhanced CT scan of the abdomen and pelvis should also be considered for staging. 4. No hepatic lesion is seen. 5. The gallbladder is distended and contains sludge and stones. There is no convincing evidence of ch oledocholithiasis. Dictated: 02/14/2018 1:18 PM Transcribed: 02/14/2018 1:43 PM Jen [id number] [email or web address] Electronically signed by: Gato Cano M.D. 02/14/2018 1:56 PM
[2018-02-14] MEDS ORDERED: PROPOFOL IV EMULSION 10 MG/ML 20 ML VIAL IV ONE (14:34)
[2018-02-14] MEDS ORDERED: fentaNYL citrate 100 MCG/2 ML VIAL ONE (14:34)
[2018-02-14] MEDS ORDERED: LIDOCAINE HCL 2% 2 ML VIAL/AMP(20MG/ML) INFIL ONE (14:34)
--- NOTE | 2018-02-14 14:41 | Anesthesiology Consultation ---
Date of Service February 14, 2018 Assessment & Plan (1) Encounter for pre-operative examination: Chart Review Chart Review: Acceptable Risk for Surgery and Patient NOT seen in Pre Admission Testing Consults Requested none NPO Date Last Intake of Fluids: 02/14/18 Time Last Intake of Fluids: 10:00 History Surgery Operation Date: 02/14/18 07:30 Proposed Procedures p Endoscopic Retrograde Cholangiopancreatogram - Shar Hyatt MD Height/Weight Height: 5 ft 4 in Weight: 61.8 kg Allergies Allergy/AdvReac Type Severity Reaction Status Date / Time No Known Allergies Allergy Verified 02/10/18 17:37 Medications Home Medications Medication Instructions Recorded Confirmed Last Taken ascorbic acid (vitamin C) [Vitamin 500 mg PO DAILY 02/10/18 02/10/18 Unknown C] calcium carbonate-vitamin D3 1 tab PO QAM 02/10/18 02/10/18 Unknown [Calcium 500 + D] citalopram 20 mg PO DAILY 02/10/18 02/10/18 Unknown glucosamine-chondroitin 1 tab PO DAILY 02/10/18 02/10/18 Unknown naproxen sodium [Aleve] 220 mg PO BID PRN 02/10/18 02/10/18 Unknown omeprazole 20 mg PO DAILY 02/10/18 02/10/18 Unknown potassium chloride [Klor-Con M10] 10 meq PO DAILY 02/10/18 02/10/18 Unknown ranitidine HCl [Zantac Maximum 150 mg PO HS 02/10/18 02/10/18 Unknown Strength] triamterene-hydrochlorothiazid 1 cap PO DAILY 02/10/18 02/10/18 Unknown Active Medications Generic Name Dose Route Start Last Admin Trade Name Freq PRN Reason Stop Dose Admin Potassium Chloride/Dextrose/Sod Cl 20 meq in 1,000 mls @ 125 mls/hr 02/14/18 11:30 02/14/18 13:24 D5nss + 20meq Kcl IV 03/16/18 11:29 125 mls/hr .Q8H ANA ROSA Administration Beta Wiley Beta Wiley Taken Within 24 Hours: No Past Medical History Medical History Anxiety Depression H/O gastroesophageal reflux (GERD) Hearing deficit Hypertension Osteoarthritis Skin cancer Past Surgical History Surgical History History of total hip arthroplasty April 2016 History of herniorrhaphy Past Anesthesia History No Hx of Anesthesia Complications and No Family Hx of Anesthesia Complications History of PONV No Motion Sickness Screening History of Motion Sickness: No Social History Smoking Status: Never smoker Do You Dip or Chew Tobacco: No Hx Alcohol Use: No Hx Substance Use: No Exercise / Class Metabolic Activity II 4-5 Yardwork/Stairs/Walk up hill Physical Exam Vital Signs Last Vital Signs Temp 36.6 C 02/14/18 14:48 Pulse 73 02/14/18 14:48 Resp 16 02/14/18 14:48 BP 136/72 02/14/18 14:48 Pulse Ox 98 02/14/18 14:48 Cardiovascular Rate/Rhythm: regular rate and regular rhythm Heart Sounds: + murmur (1/6 systolic murmur. ) Testing Electrocardiogram Date: 03/24/16 Findings: + NSR @ (80) nonspecific ST abnormality. Laboratory Results 02/14/18 11:48 02/14/18 11:48
[2018-02-14] MEDS ORDERED: ATROPINE SULFATE 0.1 MG/ML 5ML SYR IV PRN (14:54)
[2018-02-14] MEDS ORDERED: ePHEDrine sulfate 50 MG/ML AMP IV PRN (14:54)
[2018-02-14] MEDS ORDERED: HYDROmorphone INJ 1 MG/ML SYRINGE IV PRN (14:54)
[2018-02-14] MEDS ORDERED: INDOMETHACIN 50 MG SUPP PR SCH (15:30)
--- NOTE | 2018-02-14 15:54 | Operative Report ---
Post Operative Report Date of Surgery February 14, 2018 Pre & Post Diagnosis Operation Date: 02/14/18 07:30 Pre-Op Diagnosis: jaundice Post-Op Diagnosis: biliary stricture Procedure Operation Date: 02/14/18 07:30 Actual Procedures p Endoscopic Retrograde Cholangiopancreatogram, with sphincterotomy and placement of bile duct stent(Not Applicable) - Shar Hyatt MD Surgeon Shar Hyatt MD Facilities Technician None Estimated Blood Loss 0 Findings See Below (CBD stricture, Shpincterotomy and CBD stent placed) Specimens CBD brush cytology I attest to the content of the Intraoperative Record and any orders documented therein. Any exceptions are noted below.
[2018-02-14] MEDS ORDERED: ONDANSETRON INJ 2 MG/ML 2 ML VIAL ONE (16:07)
--- NOTE | 2018-02-14 16:08 | Fluoroscopy Report ---
FL ERCP biliary ductal CLINICAL HISTORY: EXPLORE DUCTS COMPARISON STUDY: MRCP 02/14/2018. FLUOROSCOPY TIME: 1 minute and 30 seconds. FINDINGS: 9 fluoroscopic spot images. There is no discopathy second portion of duodenum. The ampulla is cannulated and contrast injection into the common bile duct. Dilated biliary system is noted with a tight stricture at the distal common bile duct. This is followed by placement of a common bile duct stent which appears in good position. IMPRESSION: Fluoroscopy provided for common bile duct stent placement. Electronically signed by: Jose A Chavira M.D. 02/14/2018 4:06 PM
--- NOTE | 2018-02-14 16:10 | Anesthesiology Progress Note ---
Date of Service February 14, 2018 Anesthesia Post Procedure Vital Signs Vital Signs: Temp Pulse Pulse Resp BP Pulse Ox 02/14/18 16:03 36.2 C L 103 H 16 153/73 H 100 02/14/18 14:48 36.6 C 73 16 136/72 98 02/14/18 11:34 36.3 C L 18 148/74 H 99 Pain Intensity Right Upper Back: Pain Intensity: 4 Notes Mental Status: alert / awake / arousable and participated in evaluation Patient Amnestic to Procedure: Yes Nausea / Vomiting: adequately controlled Pain: adequately controlled Airway Patency, RR, SpO2: stable & adequate BP & HR: stable & adequate Hydration State: stable & adequate Anesthetic Complications: no major complications apparent and Pt Satisfied with anesthetic care
[2018-02-14] MEDS: fentaNYL citrate 100 MCG/2 ML VIAL IV PRN ×2 (16:12→16:18)
--- NOTE | 2018-02-14 16:18 | GI REPORT ---
Patient Name: Nathalie Montaño Procedure Date: 02/14/2018 3:00 PM Date of : 1945 Admit Type: Inpatient Age: 72 Gender: Female Attending MD: Shar Hyatt MD Procedure: ERCP Providers: Shar Hyatt MD Referring MD: Rodney Boss Indications: Abnormal MRCP, Jaundice, Elevated bilirubin Medicines: General Anesthesia Complications: No immediate complications. Estimated Blood Loss: Estimated blood loss: none. Procedure: Pre-Anesthesia Assessment: - Prior to the procedure, a History and Physical was performed, and patient medications and allergies were reviewed. The patient is competent. The risks and benefits of the procedure and the sedation options and risks were discussed with the patient. All questions were answered and informed consent was obtained. Patient identification and proposed procedure were verified by the physician and the nurse in the procedure room. Mental Status Examination: alert and oriented. Airway Examination: normal oropharyngeal airway and neck mobility. Respiratory Examination: clear to auscultation. CV Examination: normal. ASA Grade Assessment: II - A patient with mild systemic disease. After reviewing the risks and benefits, the patient was deemed in satisfactory condition to undergo the procedure. The anesthesia plan was to use general anesthesia. Immediately prior to administration of medications, the patient was re-assessed for adequacy to receive sedatives. The heart rate, respiratory rate, oxygen saturations, blood pressure, adequacy of pulmonary ventilation, and response to care were monitored throughout the procedure. The physical status of the patient was re-assessed after the procedure. After obtaining informed consent, the scope was passed under direct vision. Throughout the procedure, the patient's blood pressure, pulse, and oxygen saturations were monitored continuously. The scope was introduced through the mouth, and advanced to the duodenum and used to inject contrast into the bile duct. The ERCP was accomplished without difficulty. The patient tolerated the procedure well. Findings: The checkroom chief film was normal. The esophagus was successfully intubated under direct vision. The scope was advanced to a normal major papilla in the descending duodenum without detailed examination of the pharynx, larynx and associated structures, and upper GI tract. The upper GI tract was grossly normal. A 0.035 inch straight standard wire was passed into the biliary tree. The Fusion OMNI sphincterotome was passed over the guidewire and the bile duct was then deeply cannulated. Contrast was injected. I personally interpreted the bile duct images. Ductal flow of contrast was adequate. Image quality was adequate. Contrast extended to the main bile duct. The middle and upper third of the main bile duct were markedly dilated. The largest diameter was 12 mm. The lower third of the main bile duct contained a single segmental stenosis 15 mm in length. Biliary sphincterotomy was made with a monofilament Fusion OMNI sphincterotome using ERBE electrocautery. There was no post-sphincterotomy bleeding. Cells for cytology were obtained by brushing from the stricture. One 10 Fr by 7 cm plastic stent with a single external flap and a single internal flap was placed into the common bile duct. Bile and sludge flowed through the stent. The stent was in good position. Indomethacin 100 mg was given via suppository to decrease the risk of post-ERCP pancreatitis (PEP). The total fluoroscopy exposure time was 1 minute and 30 seconds. PD was not opacified. Impression: - A segmental lower biliary stricture was found. The stricture was malignant appearing. - The upper and middle third of the main bile duct were markedly dilated. - A biliary sphincterotomy was performed. - One plastic stent was placed into the common bile duct. Recommendation: - [facility]. - Await cytology results. - Monitor LFTs. - An upper endoscopic ultrasound (UEUS) with FNA of the mass is scheduled as OP on 02/17/2018. Shar Hyatt MD 02/14/2018 4:18:25 PM This report has been signed electronically. Note Initiated On: 02/14/2018 3:00 PM Number of Addenda: 0 I attest to the content of the Intraoperative Record and orders documented therein, exceptions below {[id number]}
--- NOTE | 2018-02-14 16:36 | Progress Note ---
Date of Service February 14, 2018 Subjective ERCP showed distal CBD stricture, likely malignancy. a Plastic CBD stent was placed to decompress her duct. Recommend: CT chest , abdomen and pelvis for staging. IV Hydration. Repeat CMP tomorrow. If clinically stable will plan for discharge tomorrow. She is scheduled for EUS/FNA on 02/17 as OP. Physical Exam 2 Vital Signs (Past 24 Hours): Last Vital Signs Temp 36.3 C L 02/14/18 16:30 Pulse 61 02/14/18 16:30 Resp 16 02/14/18 16:30 BP 154/94 H 02/14/18 16:30 Pulse Ox 100 02/14/18 16:30
[2018-02-14] MEDS: LACTATED RINGER'S 1,000 ML IV SCH ×2 (17:15→18:42)
[2018-02-14] MEDS ORDERED: OPTIRAY 320 125ml IV PRN (19:52)
--- NOTE | 2018-02-14 20:27 | CT Scan Report ---
CHEST CT WITH CONTRAST, ABDOMEN AND PELVIS CT WITH AND WITHOUT CONTRAST CT DOSE: 968.73 mGy.cm HISTORY: jaundice, MR w/ panc lesion and kidney lesion TECHNIQUE: Multiaxial CT images of the chest were performed following the intravenous administration of contrast. Multiaxial CT images of the abdomen and pelvis were performed both before and after the intravenous administration of contrast throughout the pancreas and kidneys. Oral contrast was also a dministered. A dose lowering technique was utilized adhering to the principles of ALARA. COMPARISON: MRCP 02/14/2018. FINDINGS: CHEST: No pneumothorax. No pleural effusions. Linear densities within the lung bases posteriorly favo r subsegmental atelectasis. The central airways are patent. Punctate calcified granuloma within the r ight lower lobe. No suspicious pulmonary nodules. No suspicious lytic or blastic osseous lesions. Mul tinodular thyroid gland. Dominant nodule within the isthmus measures 1.8 cm. No significant mediastin al or hilar lymphadenopathy. Small hiatus hernia. Normal caliber thoracic aorta. The heart is normal in size. The main pulmonary arteries are patent. ABDOMEN AND PELVIS CT: Trace pneumobilia which is likely due to the recent procedure. No pneumoperito neum. No pneumatosis. There is a left total hip arthroplasty. No suspicious lytic or blastic osseous lesions. The pelvic structures are suboptimally evaluated due to metallic artifact from the left hip prosthesis. However, the bladder, uterus, bilateral adnexa appear to be within normal limits. No pelv ic lymphadenopathy. Colonic diverticulosis. Normal appendix. There is confirmation of the enhancing e xophytic mass within the lower pole the right kidney measuring 2.2 cm. This is consistent with a mt l cell carcinoma. There are few subcentimeter hypodense lesions within the left kidney. These are det ected 2. Small to characterize but statistically represent cysts. No definite enhancing left renal masses. Residual contrast within the gallbladder due to the recent procedure. A common bile duct stent is in good position. There is mild intrahepatic bile duct dilatation. Mild inflammatory change surrounding the pancreas. There is confirmation of the mass at the pancreatic head/neck. This measures approximat veronica 3.3 x 2.6 cm. This lesion appears to abut and only partially encases the proximal superior mesent makayla vein. There is less than 180 degrees of encasement identified at the splenic vein. The portal, s plenic, and mesenteric veins appear patent. The superior mesenteric artery is widely patent and there is no associated encasement of the mass.. There is proximal dilatation of the main pancreatic duct m easuring up to 5 mm in diameter. No retroperitoneal lymphadenopathy. A 1.2 cm right adrenal gland nod ule. This appears to be consistent with a benign adenoma. There are few scattered subcentimeter hypod ense lesions within the spleen. Dominant lesion measures 8 mm. There are few subcentimeter peripancre atic lymph nodes. Dominant lymph node measures 8 mm in short axis diameter. IMPRESSION: 1. Confirmation of a 3.3 x 2.6 cm pancreatic head/neck mass as described above. 2. There are few subcentimeter hypodense lesions. These are too small to characterize. 3. Mild inflammatory change surrounding the pancreas consistent with acute pancreatitis. 4. Confirmation of the 2.2 cm exophytic mass within the lower pole the right kidney. This is consiste nt with a renal cell carcinoma. 5. The common bile duct stent is in good position. Mild intrahepatic bile duct dilatation is noted. 6. No evidence for metastatic disease within the chest. 7. Additional findings as described above. Electronically signed by: Jose A Chavira M.D. 02/14/2018 8:25 PM
[2018-02-15] MEDS: LACTATED RINGER'S 1,000 ML IV SCH ×2 (02:47→09:46)
--- NOTE | 2018-02-15 06:32 | Surgery Progress Note ---
Date of Service February 15, 2018 Assessment & Plan (1) Elevated liver enzymes: pt scheduled for EUS on 02/17 at [facility] will need referral to tertiary center for possible resection pancreatic lesion and renal lesion ( discussed with pt findings and likely plan she will discuss with family for tertiary center of choice Present on Admission?: Yes Subjective feels better since stent placement yesterday Physical Exam 2 Vital Signs (Past 24 Hours): Last Vital Signs Temp 36.4 C L 02/15/18 03:19 Pulse 63 02/15/18 03:19 Resp 16 02/15/18 03:19 BP 113/68 02/15/18 03:19 Pulse Ox 98 02/15/18 03:19 Physical Exam: abd benign, sclera less icteric Results & Data Diagnostic Findings ct scan chest neg for met disease thyroid nodule present for years acc to pt ct scan abd 4 cm plus mass head of pancreas likely malignant right renal exophylic mass likely malignant no gross evidence of met disease
--- NOTE | 2018-02-15 08:32 | Anesthesiology Progress Note ---
Date of Service February 15, 2018 Anesthesia Post Procedure Vital Signs Vital Signs: Temp Pulse Pulse Resp BP Pulse Ox 02/15/18 08:00 36.5 C 65 16 127/57 L 98 02/15/18 03:19 36.4 C L 63 16 113/68 98 02/14/18 22:54 36.2 C L 66 16 117/71 96 02/14/18 20:05 36.6 C 73 16 138/75 96 02/14/18 18:59 36.4 C L 67 16 154/70 H 97 02/14/18 18:00 36.5 C 64 18 155/71 H 99 02/14/18 17:30 36.5 C 62 16 153/74 H 98 02/14/18 17:00 36.4 C L 68 16 169/89 H 97 02/14/18 16:30 36.3 C L 61 16 154/94 H 100 02/14/18 16:20 67 15 149/68 H 100 02/14/18 16:10 67 18 158/72 H 100 02/14/18 16:03 36.2 C L 103 H 16 153/73 H 100 02/14/18 14:48 36.6 C 73 16 136/72 98 02/14/18 11:34 36.3 C L 18 148/74 H 99 Pain Intensity Right Upper Back: Pain Intensity: 2 Back: Pain Intensity: 2 Notes Mental Status: alert / awake / arousable Patient Amnestic to Procedure: Yes Nausea / Vomiting: adequately controlled Pain: adequately controlled Airway Patency, RR, SpO2: stable & adequate BP & HR: stable & adequate Hydration State: stable & adequate Anesthetic Complications: no major complications apparent
[2018-02-15 08:33] LABS: Albumin Level 3.3 gm/dl (3.4-5.0); BUN Creatinine Ratio 16.4 (10-20); Calcium 8.9 mg/dl (8.5-10.1); Creatinine Clr Calc Pharmacy 43.5 ml/min; Est GFR (African American) 65.9; Est GFR (Non-African American) 56.8; Potassium 4.3 mmol/L (3.5-5.1)
[2018-02-15 08:38] LABS: Albumin Globulin Ratio 1.2 (0.9-2); Bilirubin,Total 2.3 mg/dl (0.1-1); Globulin 2.7 gm/dl (2.5-4.0)
[2018-02-15 08:53] LABS: Albumin Level 3.2 gm/dl (3.4-5.0); Bilirubin Direct 1.4 mg/dl (0-0.2); Bilirubin,Total 2.2 mg/dl (0.1-1); Total Protein 6.1 gm/dl (6.4-8.2)
--- NOTE | 2018-02-15 10:56 | Gastroenterology Progress Note ---
Date of Service February 15, 2018 Assessment & Plan (1) Elevated liver enzymes: 72 year old female with elevated LFTs, improving abdominal pain, resolved nausea/vomiting imaging concerning for gallstones w/ biliary dilation. Her LFTs have been increasing. She had MRCP prior to ERCP yesterday concerning for pancreatic malignancy and renal cell carcinoma. Now S/P ERCP w/ stent placement w/ plan for close GI follow up for EUS w/ FNA. She will then need to establish w / hemeonc and surgonc - Low fat diet as tolerated - Would recommend D/C today if she remains pain free after PO - EUS/FNA on 02/17 as OP - She was given our office number to return call for screening for EUS - GI to sign off. Thank you for allowing us to participate in the care of this patient. Please call with any acute changes, questions or concerns. Please see addendum below with additional recommendation from my supervising physician. Supervising Physician Co-Signing Physician Notes I performed a history and physical examination of the patient, including specifically on physical exam - soft, nontender abdomen. I have discussed the patient's management with Jane. Please refer to the nurse practitioner's note for the documented findings and plan of care. CT scan showed pancreatic mass but seems still resectable. Also there is suspected renal cancer. She feels better today and tolerated diet. LFTs improving. Recommend: OP EUS with FNA of the Panc mass. Afterwards she needs evaluation by Oncology surgery, I advised she should discuss resection of both masses if possible. Recall GI if needed. Subjective Pt was seen and evaluated, chart reviewed. ERCP showed distal CBD stricture, likely malignancy. a Plastic CBD stent was placed to decompress her duct. Had CT chest/abd/pelvision concerning for panc malignancy and renal cell carcinoma but no evidence of disease in chest. Is hungry. No fever, chills, CP, SOB. CT Chest/Abd/Pelvis: Confirmation of a 3.3 x 2.6 cm pancreatic head/neck mass as described above. There are few subcentimeter hypodense lesions. These are too small to characterize. Mild inflammatory change surrounding the pancreas consistent with acute pancreatitis. Confirmation of the 2.2 cm exophytic mass within the lower pole the right kidney. This is consistent with a renal cell carcinoma. The common bile duct stent is in good position. Mild intrahepatic bile duct dilatation is noted. No evidence for metastatic disease within the chest. Additional findings as described above. MRCP: There is dilatation of the common bile duct, the intrahepatic ducts, and the pancreatic duct secondary to a mass lesion in the pancreatic head. This should be considered pancreatic adenocarcinoma until proven otherwise. There is a 2.2 cm exophytic lesion arising from the lower pole of the right kidney. Although this could represent a complex cyst, this is incompletely characterized and the appearance is concerning for a renal cell carcinoma.Consider endoscopic ultrasound with biopsy for further assessment of the pancreatic head mass. A contrast-enhanced CT scan of the abdomen and pelvis should also be considered for staging. No hepatic lesion is seen. The gallbladder is distended and contains sludge and stones. There is no convincing evidence of choledocholithiasis. Constitutional: no fever, no body aches and no weight loss Respiratory: no cough, no dyspnea and no wheezing Cardiovascular: no chest pain and no palpitations Gastrointestinal: + bloating and + nausea; no abdominal pain, no early satiety and no vomiting Physical Exam 2 Vital Signs (Past 24 Hours): Last Vital Signs Temp 36.5 C 02/15/18 08:00 Pulse 65 02/15/18 08:00 Resp 16 02/15/18 08:00 BP 127/57 L 02/15/18 08:00 Pulse Ox 98 02/15/18 08:00 Constitutional: well developed, well nourished, cooperative and comfortable Respiratory: normal respiratory effort, lungs clear to auscultation Cardiovascular: RRR, no murmur, no edema Gastrointestinal (Abdomen): normal bowel sounds, soft, nontender, no hepatosplenomegaly Skin: + jaundice Results & Data Laboratory Results 02/15/18 02/15/18 02/14/18 Range/Units 07:52 07:39 11:48 WBC (4.8-10.8) K/uL RBC (4.2-5.4) M/uL Hgb (12.0-16.0) g/dL Hct (37-47) % MCV (80-100) fL MCH (25-34) pg MCHC (32-36) g/dL RDW Std Deviation (36.4-46.3) fL RDW Coeff of Td (11.5-14.5) % Plt Count (130-400) K/uL MPV (7.4-10.4) fL Immature Gran % (Auto) % Neut % (Auto) % Lymph % (Auto) % Spink % (Auto) % Eos % (Auto) % Baso % (Auto) % Immature Gran # (Auto) (0.00-0.02) K/uL Neut # (Auto) (1.4-6.5) K/uL Lymph # (Auto) (1.2-3.4) K/uL Spink # (Auto) (0.11-0.59) K/uL Eos # (Auto) (0-0.5) K/uL Baso # (Auto) (0-0.2) K/uL Sodium 138 140 (136-145) mmol/L Potassium 4.3 3.9 (3.5-5.1) mmol/L Chloride 103 104 (98-107) mmol/L Carbon Dioxide 29 30 (21-32) mmol/L Anion Gap 6.0 6.0 (3-11) BUN 16 24 H (7-18) mg/dl Creatinine 0.98 1.22 H (0.6-1.2) mg/dl Est Cr Clr Drug Dosing 43.5 Not Reportable Est GFR ( Amer) 65.9 50.5 Est GFR (Non-Af Amer) 56.8 43.6 BUN/Creatinine Ratio 16.4 19.6 (10-20) Glucose 120 H 118 H (70-99) mg/dl Calcium 8.9 9.8 (8.5-10.1) mg/dl Total Bilirubin 2.2 H 2.3 H 4.4 H (0.1-1) mg/dl Direct Bilirubin 1.4 H D 3.2 H (0-0.2) mg/dl AST 96 H 98 H 181 H (15-37) U/L ALT 279 H 284 H 420 H (12-78) U/L Alkaline Phosphatase 169 H 169 H 224 H (45-117) U/L Total Protein 6.1 L 6.0 L D 8.1 (6.4-8.2) gm/dl Albumin 3.2 L 3.3 L 4.4 (3.4-5.0) gm/dl Globulin 2.7 (2.5-4.0) gm/dl Albumin/Globulin Ratio 1.2 (0.9-2) Lipase 457 H (73-393) U/L 02/14/18 Range/Units 11:48 WBC 6.88 (4.8-10.8) K/uL RBC 4.61 (4.2-5.4) M/uL Hgb 14.6 (12.0-16.0) g/dL Hct 43.3 (37-47) % MCV 93.9 (80-100) fL MCH 31.7 (25-34) pg MCHC 33.7 (32-36) g/dL RDW Std Deviation 43.8 (36.4-46.3) fL RDW Coeff of Td 12.8 (11.5-14.5) % Plt Count 287 (130-400) K/uL MPV 10.7 H (7.4-10.4) fL Immature Gran % (Auto) 0.3 % Neut % (Auto) 64.3 % Lymph % (Auto) 21.7 % Spink % (Auto) 11.9 % Eos % (Auto) 1.5 % Baso % (Auto) 0.3 % Immature Gran # (Auto) 0.02 (0.00-0.02) K/uL Neut # (Auto) 4.43 (1.4-6.5) K/uL Lymph # (Auto) 1.49 (1.2-3.4) K/uL Spink # (Auto) 0.82 H (0.11-0.59) K/uL Eos # (Auto) 0.10 (0-0.5) K/uL Baso # (Auto) 0.02 (0-0.2) K/uL Sodium (136-145) mmol/L Potassium (3.5-5.1) mmol/L Chloride (98-107) mmol/L Carbon Dioxide (21-32) mmol/L Anion Gap (3-11) BUN (7-18) mg/dl Creatinine (0.6-1.2) mg/dl Est Cr Clr Drug Dosing Est GFR ( Amer) Est GFR (Non-Af Amer) BUN/Creatinine Ratio (10-20) Glucose (70-99) mg/dl Calcium (8.5-10.1) mg/dl Total Bilirubin (0.1-1) mg/dl Direct Bilirubin (0-0.2) mg/dl AST (15-37) U/L ALT (12-78) U/L Alkaline Phosphatase (45-117) U/L Total Protein (6.4-8.2) gm/dl Albumin (3.4-5.0) gm/dl Globulin (2.5-4.0) gm/dl Albumin/Globulin Ratio (0.9-2) Lipase (73-393) U/L
--- NOTE | 2018-02-16 13:43 | Discharge Summary ---
PRIMARY DISCHARGE DIAGNOSIS: 1. Pancreatic mass. 2. Right renal mass. SECONDARY DISCHARGE DIAGNOSIS: Osteoarthritis. CONSULTATIONS: [facility] for elevated LFTs and newly diagnosed pancreatic mass. PROCEDURE PERFORMED: ERCP with sphincterotomy and placement of stent by Dr. Hyatt on 02/14/2018. HOSPITAL COURSE: The patient is a 72-year-old female seen in the outpatient setting for nausea and vomiting, and jaundice. She had LFT elevations on recent labs in the ER. She was a direct admission from Dr. Boss's office for further evaluation of cholelithiasis with elevated LFTs. She had an MRCP which showed a 3 x 4 cm lesion in the pancreatic head as well as a 2 cm lesion in the right kidney. She had been seen by GI who was already planning to perform ERCP. She had that procedure later in the afternoon She was returned to the surgical floor. The next day, her symptoms and LFTs were improving. Her bilirubin improved from 4 to 2.2. She was able to tolerate a liquid diet. She was stable for discharge home later in the day on a low-fat diet. DISCHARGE INSTRUCTIONS: Discharged home. Will have outpatient E[facility] at [facility] on February 17. Brushings of the common bile duct showed atypical ductal cells, worrisome for adenocarcinoma, but not diagnostic. She will also need referral to a tertiary center for further evaluation of these pancreatic and renal masses. We will coordinate that as an outpatient. DISCHARGE MEDICATIONS: Discontinue NSAIDs for the next week. Resume her home medications: Vitamin C 500 mg daily, vitamin D3 one tablet daily, citalopram 20 mg daily, glucosamine supplement, omeprazole 20 mg daily, Klor-Con 10 mEq daily, Zantac 150 mg at bedtime, triamterene/hydrochlorothiazide 1 tablet daily. MTDD
== END 2018-02-15 15:00 | disposition home or self-care (01) ==
LOC: 3N 11:17

== ENCOUNTER 2018-09-26 13:05 | Inpatient (IN) ==
--- NOTE | 2018-09-26 13:35 | XRay Report ---
XR chest 1V portable CLINICAL HISTORY: Chest Pain dyspnea COMPARISON STUDY: 03/24/2016 FINDINGS: Interval trace fluid both lung bases. No focal infiltrate. Central catheter in superior jerome a cava. IMPRESSION: Trace pleural effusion both lung bases. Otherwise negative study. The above report was generated using voice recognition software. It may contain grammatical, syntax or spelling errors. Electronically signed by: Shiva Greene M.D. 09/26/2018 1:33 PM
[2018-09-26 14:15] LABS: Basophils # (auto) 0.01 K/uL (0-0.2); Basophils % (auto) 0.1 %; Eosinophils # (auto) 0.01 K/uL (0-0.5); Eosinophils % (auto) 0.1 %; Hematocrit (blood only) 29.4 % (37-47); Hemoglobin 9.6 g/dL (12.0-16.0); Immature Granulocytes # (auto) 0.05 K/uL (0.00-0.02); Immature Granulocytes % (auto) 0.5 %; Lymphocytes # (auto) 0.39 K/uL (1.2-3.4); Lymphocytes % (auto) 3.6 %; Mean Corpuscular Hgb Conc 32.7 g/dL (32-36); Mean Corpuscular Volume 94.5 fL (80-100); Mean Platelet Volume 10.3 fL (7.4-10.4); Monocytes # (auto) 1.34 K/uL (0.11-0.59); Monocytes % (auto) 12.3 %; Neutrophils # (auto) 9.11 K/uL (1.4-6.5); Neutrophils % (auto) 83.4 %; Platelet Count 198 K/uL (130-400); RDW Coefficient of Variation 17.4 % (11.5-14.5); RDW Standard Deviation 59.5 fL (36.4-46.3); Red Blood Count 3.11 M/uL (4.2-5.4); White Blood Count 10.91 K/uL (4.8-10.8)
[2018-09-26 14:18] LABS: INR 1.7 (0.9-1.1); Prothrombin Time 17.1 Seconds (9.0-12.0)
--- NOTE | 2018-09-26 14:25 | CT Scan Report ---
CT head/brain wo con CT DOSE: HISTORY: Trauma fall will start heparin TECHNIQUE: Multiaxial CT images of the head were performed without the use of intravenous contrast. A dose lowering technique was utilized adhering to the principles of ALARA. Comparison: 04/13/2012 Findings: The paranasal sinuses and mastoid air cells are clear. The calvarium and skull base are int act. The ventricles and sulci are within normal limits. There is no mass, hematoma, midline shift, or acute infarct. Age-related atrophy and chronic small vessel change Impression: No acute intracranial abnormality. Age-related atrophy and chronic small vessel change The above report was generated using voice recognition software. It may contain grammatical, syntax or spelling errors. Electronically signed by: Shiva Greene M.D. 09/26/2018 2:24 PM
[2018-09-26 14:47] LABS: Alanine Aminotransferase 68 U/L (12-78); Albumin Globulin Ratio 0.5 (0.9-2); Albumin Level 1.7 gm/dl (3.4-5.0); Alkaline Phosphatase 698 U/L (45-117); Aspartate Aminotransferase 92 U/L (15-37); BUN Creatinine Ratio 20.1 (10-20); Bilirubin,Total 14.4 mg/dl (0.2-1); Blood Urea Nitrogen 11 mg/dl (7-18); Calcium 8.5 mg/dl (8.5-10.1); Carbon Dioxide 23 mmol/L (21-32); Chloride 102 mmol/L (98-107); Est GFR (Non-African American) 92.3; Globulin 3.2 gm/dl (2.5-4.0); Glucose 107 mg/dl (70-99); Potassium 3.3 mmol/L (3.5-5.1); Sodium 135 mmol/L (136-145); Total Protein 4.9 gm/dl (6.4-8.2); Troponin I < 0.015 ng/ml (0-0.045)
[2018-09-26] MEDS ORDERED: PATIENT'S HEIGHT AND/OR WEIGHT NEEDED STA (15:22)
--- NOTE | 2018-09-26 15:53 | Ultrasound Report ---
ULTRASOUND RIGHT UPPER QUADRANT ABDOMEN CLINICAL HISTORY: Generalized abdominal pain. Jaundice. Pancreatic cancer.. COMPARISON STUDY: Abdominal CT performed the same day 09/26/2018 TECHNIQUE: Real-time, grayscale, and color flow sonography of the right upper quadrant of the abdomen was performed. Images are reviewed in the transverse and longitudinal planes. FINDINGS: Liver: The liver is normal in size and heterogeneous in echotexture. Hypoechoic hepatic lesions are c onsistent with metastatic disease. There is mild nodularity of the surface contour. There is intrahep atic biliary ductal dilatation. Pneumobilia is observed. The main portal vein is patent. Gallbladder: The gallbladder is distended. The gallbladder is sludge and shadowing stones. There is n o gallbladder wall thickening or pericholecystic fluid. A sonographic Acevedo's sign is not reported. The common bile duct dilated measuring up to 1.3 cm in diameter. Sludge is noted within the common bi le duct. A common bile duct stent is in place. This is not well-visualized. Pancreas: The pancreas is atrophic. The pancreatic duct is markedly dilated measure up to 7 mm, and a hypoechoic mass lesion is suggested in the region of the pancreatic head. This measures up to 2.2 cm . The splenic vein is patent. Right kidney: Survey images of the right kidney demonstrate normal size and echotexture. There is no hydronephrosis. 1.8 cm mass lesion arises from the lower pole the right kidney. Ascites: There is a small volume of upper abdominal ascites. Pleural spaces: A small right pleural effusion is noted. IMPRESSION: 1. There is intra and extrahepatic biliary ductal dilatation as well as pancreatic ductal dilatation secondary to a pancreatic head mass. 2. There is hepatic metastatic disease. 3. These findings lower better assessed on today's CT scan. 4. The gallbladder is distended and filled with stones and sludge. Acute cholecystitis would be impos sible to exclude and clinical correlation will be required. 5. Upper abdominal ascites and right pleural effusion. 6. A 1.8 cm mass in the lower pole of left kidney remains consistent with renal cell carcinoma. Electronically signed by: Gato Cano M.D. 09/26/2018 3:51 PM
[2018-09-26] MEDS ORDERED: Heparin BOLUS **ED Use Only IV STA (16:03)
[2018-09-26] MEDS: HEPARIN SODIUM/DEXTROSE 25,000 UNITS/500 ML BAG IV SCH (16:44)
--- NOTE | 2018-09-26 16:46 | History & Physical Report ---
Date of Service September 26, 2018 Assessment & Plan (1) Acute saddle pulmonary embolism: Heparin infusion. Eventual change to oral anticoagulant Present on Admission?: Yes (2) Malignant neoplasm of pancreas: With worsening jaundice. GI consultation. History of ERCP with stent last January Present on Admission?: Yes (3) Hypokalemia: IV replacement. Serial labs (4) Type 2 diabetes mellitus: Clear liquid diet for now. Advance as tolerated. Sliding scale insulin coverage as needed (5) DNR (do not resuscitate): Per patient request History of Present Illness Chief Complaint: Pleasant 73-year-old female with pancreatic cancer who has had worsening nausea, anorexia, weight loss for the past several weeks. She underwent outpatient CAT scan and was noted to have a saddle pulmonary embolus that is asymptomatic at this time. She does not feel short of breath and is not requiring oxygen. She is obviously jaundiced with total bilirubin 14.4. She did undergo ERCP with stent placement last January by [facility] gastroenterology. They will be consulted to see her. She is now on a heparin infusion. She is a DNR patient. Hypokalemia will be corrected with IV replacement. Clear liquid diet for now. Primary Care Provider: Glenn Calles MD Allergies Allergy/AdvReac Type Severity Reaction Status Date / Time No Known Drug Allergies Allergy Verified 09/26/18 15:27 Home Medications Home Medications Medication Instructions Recorded Confirmed Type citalopram 20 mg PO QAM 02/10/18 09/26/18 History potassium chloride [Klor-Con M10] 10 meq PO QAM 02/10/18 09/26/18 History blood sugar diagnostic strips #10 ea 08/17/18 09/26/18 History cholecalciferol (vitamin D3) 1,000 1,000 units PO QAM cap 08/17/18 09/26/18 History unit capsule flash glucose scanning reader #1 ea 08/17/18 09/26/18 History flash glucose sensor kit #1 ea 08/17/18 09/26/18 History insulin NPH isophane U-100 human See Rx Instructions .ROUTE .COMPLEX 08/17/18 09/26/18 History 100 unit/mL (3 mL) subcutaneous pen lancets 33 gauge #100 ea 08/17/18 09/26/18 History ondansetron HCl 8 mg tablet 8 mg PO TID PRN 08/17/18 09/26/18 History pen needle, diabetic 32 gauge x #10 ea 08/17/18 09/26/18 History " docusate sodium [Colace] 100 mg PO BID 09/26/18 09/26/18 History metoclopramide HCl 10 mg PO TIDM 09/26/18 09/26/18 History pantoprazole 40 mg PO QAM 09/26/18 09/26/18 History polyethylene glycol 3350 [Miralax] 17 g PO BID 09/26/18 09/26/18 History Past Med/Surg History Surgical History History of total hip arthroplasty April 2016 l hip History of herniorrhaphy Family History Mother Hypertension Heart disease Social History Preferred Language: Pashto Communication Ability: Effective Visual Impairment: Partially Limited Hearing Ability: Normal Beliefs That Will Affect Care: None Current Living Situation: Family Current Living Situation Comment: lives with daughter Feels Safe at Home: Yes Smoking Status: Never smoker Hx Alcohol Use: No Hx Substance Use: No Review of Systems Review of Systems: Constitutional-malaise, failure to thrive, worsening weakness, anorexia ENT-no blurred vision, no double vision, no epistaxis, no sore throat Respiratory-no cough, no wheezing, no shortness of breath Cardiac-no palpitations, no chest pain, no syncope GI-poor appetite and nausea -no urinary retention, no urinary incontinence, no dysuria, no hematuria Musculoskeletal-no joint pain, no muscle tenderness Skin-no bruising, no rashes, no pruritus. Worsening jaundice Neuro-worsening generalized weakness Psych-no depression, no anxiety Physical Exam Physical Exam: General-alert and oriented x3, cachectic appearing. No acute distress HEENT-head atraumatic and normocephalic, TMs intact bilaterally, pupils equal and reactive to light, extraocular muscles intact. Scleral icterus noted Neck-no lymphadenopathy or thyromegaly, trachea midline Chest-clear to auscultation percussion. No rales wheezing or rhonchi Cardiac-regular rate and rhythm, normal S1 and S2, no murmurs Abdomen-normal bowel sounds, mild right upper quadrant tenderness. No palpable masses Integumentjaundiced Extremities-no cyanosis, clubbing, or edema Neuro-cranial nerves II through XII intact, motor and sensory function within normal limits, strength symmetrical 5/5, no focal deficits Psych-normal affect, normal mood Results & Data Vital Signs (Past 12 Hours) Vital Signs Temp Pulse Resp BP Pulse Ox 09/26/18 13:07 36.4 C L 90 24 130/65 100 Laboratory Results 09/26/18 13:56 09/26/18 13:56 PG Care Time/CCT Total # of Minutes Spent Total Time Spent with Patient: Total time spent is greater than 50% in coordination of care (as documented) at patient's floor/unit and/or counseling patient: (1) Acute saddle pulmonary embolism Acute cor pulmonale presence: without acute cor pulmonale Qualified Code(s): I26.92 - Saddle embolus of pulmonary artery without acute cor pulmonale
--- NOTE | 2018-09-26 17:34 | Emergency Department Note ---
Entered by Prudence Cat acting as a scribe for History of Present Illness General Chief complaint: Abnormal Labs/Diagnostic Testing Stated complaint: HAD CT SENT BY [facility] Source: patient Mode of arrival: ambulatory Limitations: no limitations History of Present Illness Onset (ago): day(s) (today) Location: chest Pain Consistency: + other (episode) Quality: + other (PE, abnormal CT) Associated symptoms: + other (She denies coughing up blood or a prior brain bleed. She states that she has a hemorrhoids and intermittent blood in her stool. ); no chest pain, no fever/chills and no shortness of breath The patient is a 73 year old female with a history of pancreatic cancer stage 4, chemotherapy, type 2 diabetes, malignant neoplasm of pancreas, umbilical hernia, SNHL, pancreatic mass, internal hemorrhoids, SANTIAGO, diverticulosis, CBD obstruction, and cholelithiases who presents to the ED with complaints of an episode of an abnormal lab that occurred today. The patient presents with her daughter and granddaughter. She states that she had a positive CT scan for a PE and was referred to the ED. She notes that her last chemotherapy session was las t week. The patient reports that one day this week, her son said that she appeared yellow and then returned to normal later in the day. She reports that she did not notice the color change at that time. She states that her urine is orange. The patient denies chest pain and shortness of breath. She denies coughing up blood or a prior brain bleed. She states that she has a hemorrhoids and intermittent blood in her stool. She denies taking any blood thinners. The patient reports that she fell last week and landed on her back. Home Medications Home Medications Medication Instructions Recorded Confirmed Type citalopram 20 mg PO QAM 02/10/18 09/26/18 History potassium chloride [Klor-Con M10] 10 meq PO QAM 02/10/18 09/26/18 History blood sugar diagnostic strips #10 ea 08/17/18 09/26/18 History cholecalciferol (vitamin D3) 1,000 1,000 units PO QAM cap 08/17/18 09/26/18 History unit capsule flash glucose scanning reader #1 ea 08/17/18 09/26/18 History flash glucose sensor kit #1 ea 08/17/18 09/26/18 History insulin NPH isophane U-100 human See Rx Instructions .ROUTE .COMPLEX 08/17/18 09/26/18 History 100 unit/mL (3 mL) subcutaneous pen lancets 33 gauge #100 ea 08/17/18 09/26/18 History ondansetron HCl 8 mg tablet 8 mg PO TID PRN 08/17/18 09/26/18 History pen needle, diabetic 32 gauge x #10 ea 08/17/18 09/26/18 History 5/32" docusate sodium [Colace] 100 mg PO BID 09/26/18 09/26/18 History metoclopramide HCl 10 mg PO TIDM 09/26/18 09/26/18 History pantoprazole 40 mg PO QAM 09/26/18 09/26/18 History polyethylene glycol 3350 [Miralax] 17 g PO BID 09/26/18 09/26/18 History Allergies Allergy/AdvReac Type Severity Reaction Status Date / Time No Known Drug Allergies Allergy Verified 09/26/18 15:27 Past Med/Surg History Medical History Type 2 diabetes mellitus (Chronic) Hypokalemia (Acute) Acute saddle pulmonary embolism (Acute) Diabetes mellitus type II, uncontrolled (Chronic) Malignant neoplasm of pancreas (Chronic) Umbilical hernia (Acute) Solitary thyroid nodule (Acute) Sensorineural hearing loss (SNHL) of both ears (Acute) Pancreatic mass (Acute) Osteoporosis (Acute) Internal hemorrhoids (Acute) Generalized osteoarthritis of multiple sites (Acute) Generalized anxiety disorder (Acute) Gastroesophageal reflux disease (Acute) Diverticulosis (Acute) Common bile duct (CBD) obstruction (Acute) Cholelithiases (Acute) Arthritis of left hip Chronic sinusitis History of pancreatic cancer (Acute) Hx of renal cell cancer (Acute) r kidney Anxiety Depression Epigastric pain H/O gastroesophageal reflux (GERD) Hearing deficit Hyperglycemia Hypertension Osteoarthritis Skin cancer Surgical History History of total hip arthroplasty April 2016 l hip History of herniorrhaphy Family History Mother Hypertension Heart disease Social History Preferred Language: Faroese Communication Ability: Effective Visual Impairment: Partially Limited Hearing Ability: Normal Beliefs That Will Affect Care: None Current Living Situation: Family Current Living Situation Comment: lives with daughter Feels Safe at Home: Yes Smoking Status: Never smoker Hx Alcohol Use: No Hx Substance Use: No Review of Systems See HPI for pertinent positives & negatives. and A total of 10 systems reviewed and were otherwise negative Physical Exam Vital Signs Vital Signs - 24 hr 09/26/18 13:07 09/26/18 13:20 Temperature 36.4 C L Temperature Source Oral Sepsis Recent Fever Within 48 Hours No Sepsis New/Unexplained Change in Mental Status No Sepsis Action Taken by Nursing No Action Required Pulse Rate 90 Respiratory Rate 24 Blood Pressure 130/65 Blood Pressure Mean 86 Pulse Oximetry 100 Oxygen Delivery Method Room Air Room Air GENERAL: Sitting up in bed, ill appearing, jaundiced, tachypneic. EYE EXAM: Scleral icterus. OROPHARYNX: no exudate, no erythema, lips, buccal mucosa, and tongue normal and mucous membranes are moist NECK: supple, no nuchal rigidity, no adenopathy, non-tender LUNGS: Clear to auscultation. Normal chest wall mechanics HEART: no murmurs, S1 normal and S2 normal ABDOMEN: abdomen soft, non-tender, normo-active bowel sounds, no masses, no rebound or guarding. BACK: Back is symmetrical on inspection and there is no deformity, no midline tenderness, no CVA tenderness. SKIN: Jaundiced throughout UPPER EXTREMITIES: upper extremities are grossly normal. LOWER EXTREMITIES: No pitting edema. NEURO EXAM: Normal sensorium, cranial nerves II-XII grossly intact, normal speech, no gross weakness of arms, no gross weakness of legs. Course 1213: Past medical records reviewed. The patient was evaluated in room A10. A complete history and physical examination was performed. 1334: The patient states that she does not want to stay. 1500: I reviewed the patient's case with Dr. Ivan Baird - [facility]. He will evaluate the patient for further management. Consultations Consultation #1: 1500: I reviewed the patient's case with Dr. Ivan Baird - [facility]. He will evaluate the patient for further management. Time: 15:00 Administered Medications Heparin Sodium/Dextrose (Heparin Sodium/Dextrose) 25,000 units in 500 mls @ 20 mls/hr IV .Q24H [facility]; Protocol Stop: 10/26/18 15:14 Last Admin: 09/26/18 16:44 Dose: 1,000 units/hr, 20 mls/hr Documented by: [id number] Cosigned by: [id number] Discontinued Medications Heparin Sodium (Porcine) (Heparin Iv Bolus) 5,000 units IV NOW STA Stop: 09/26/18 16:04 Last Admin: 09/26/18 16:45 Dose: 5,000 units Documented by: [id number] Cosigned by: [id number] Heparin Sodium/Dextrose () 1 ea IV NOW STA; Protocol Stop: 09/26/18 15:07 Last Admin: 09/26/18 15:06 Dose: 1 ea Documented by: [id number] Miscellaneous (Patient's Height And/Or Weight Needed) 1 ea N/A NOW STA Stop: 09/26/18 15:23 Last Admin: 09/26/18 15:53 Dose: 1 ea Documented by: [id number] Medical Decision Making Differential Diagnosis Differential diagnoses Pneumonia, bronchitis, COPD/Asthma exacerbation, pneumothorax, pulmonary embolism, congestive heart failure, acute coronary syndrome as well as other etiologies were entertained. Medical Records Attestation: I reviewed the patient's medical records. Home Medications Current Medication List: was personally reviewed by me Laboratory Data Result diagrams: 09/26/18 13:56 09/26/18 13:56 Lab Results 09/26/18 09/26/18 09/26/18 Range/Units 13:56 13:56 13:56 WBC 10.91 H (4.8-10.8) K/uL RBC 3.11 L (4.2-5.4) M/uL Hgb 9.6 L (12.0-16.0) g/dL Hct 29.4 L (37-47) % MCV 94.5 (80-100) fL MCH 30.9 (25-34) pg MCHC 32.7 (32-36) g/dL RDW Std Deviation 59.5 H (36.4-46.3) fL RDW Coeff of Td 17.4 H (11.5-14.5) % Plt Count 198 (130-400) K/uL MPV 10.3 (7.4-10.4) fL Immature Gran % (Auto) 0.5 % Neut % (Auto) 83.4 % Lymph % (Auto) 3.6 % [place] % (Auto) 12.3 % Eos % (Auto) 0.1 % Baso % (Auto) 0.1 % Immature Gran # (Auto) 0.05 H (0.00-0.02) K/uL Neut # (Auto) 9.11 H (1.4-6.5) K/uL Lymph # (Auto) 0.39 L (1.2-3.4) K/uL [place] # (Auto) 1.34 H (0.11-0.59) K/uL Eos # (Auto) 0.01 (0-0.5) K/uL Baso # (Auto) 0.01 (0-0.2) K/uL PT 17.1 H (9.0-12.0) Seconds INR 1.7 H (0.9-1.1) Sodium 135 L (136-145) mmol/L Potassium 3.3 L (3.5-5.1) mmol/L Chloride 102 (98-107) mmol/L Carbon Dioxide 23 (21-32) mmol/L Anion Gap 10.0 (3-11) BUN 11 (7-18) mg/dl Creatinine 0.54 L (0.6-1.2) mg/dl Est Cr Clr Drug Dosing Not Reportable Est GFR ( Amer) 107.0 Est GFR (Non-Af Amer) 92.3 BUN/Creatinine Ratio 20.1 H (10-20) Glucose 107 H (70-99) mg/dl Calcium 8.5 (8.5-10.1) mg/dl Total Bilirubin 14.4 H (0.2-1) mg/dl AST 92 H (15-37) U/L ALT 68 (12-78) U/L Alkaline Phosphatase 698 H (45-117) U/L Troponin I < 0.015 (0-0.045) ng/ml Total Protein 4.9 L (6.4-8.2) gm/dl Albumin 1.7 L (3.4-5.0) gm/dl Globulin 3.2 (2.5-4.0) gm/dl Albumin/Globulin Ratio 0.5 L (0.9-2) Lipase 20 L (73-393) U/L Imaging Data Radiologist's Impression: Radiology results as stated below per my review and the radiologist's interpretation: ULTRASOUND RIGHT UPPER QUADRANT ABDOMEN CLINICAL HISTORY: Generalized abdominal pain. Jaundice. Pancreatic cancer.. COMPARISON STUDY: Abdominal CT performed the same day 09/26/2018 TECHNIQUE: Real-time, grayscale, and color flow sonography of the right upper quadrant of the abdomen was performed. Images are reviewed in the transverse and longitudinal planes. FINDINGS: Liver: The liver is normal in size and heterogeneous in echotexture. Hypoechoic hepatic lesions are consistent with metastatic disease. There is mild nodularity of the surface contour. There is intrahepatic biliary ductal dilatation. Pn eumobilia is observed. The main portal vein is patent. Gallbladder: The gallbladder is distended. The gallbladder is sludge and shadowing stones. There is no gallbladder wall thickening or pericholecystic fluid. A sonographic Acevedo's sign is not reported. The common bile duct dilated measuring up to 1.3 cm in diameter. Sludge is noted within the common bile duct. A common bile duct stent is in place. This is not well-visualized. Pancreas: The pancreas is atrophic. The pancreatic duct is markedly dilated measure up to 7 mm, and a hypoechoic mass lesion is suggested in the region of the pancreatic head. This measures up to 2.2 cm. The splenic vein is patent. Right kidney: Survey images of the right kidney demonstrate normal size and echotexture. There is no hydronephrosis. 1.8 cm mass lesion arises from the lower pole the right kidney. Ascites: There is a small volume of upper abdominal ascites. Pleural spaces: A small right pleural effusion is noted. IMPRESSION: 1. There is intra and extrahepatic biliary ductal dilatation as well as pancreatic ductal dilatation secondary to a pancreatic head mass. 2. There is hepatic metastatic disease. 3. These findings lower better assessed on today's CT scan. 4. The gallbladder is distended and filled with stones and sludge. Acute c holecystitis would be impossible to exclude and clinical correlation will be required. 5. Upper abdominal ascites and right pleural effusion. 6. A 1.8 cm mass in the lower pole of left kidney remains consistent with renal cell carcinoma. Electronically signed by: Gato Cano M.D. 09/26/2018 3:51 PM Dictated: 09/26/18 1544 Transcribed: 09/26/[address] head/brain wo con CT DOSE: HISTORY: Trauma fall will start heparin TECHNIQUE: Multiaxial CT images of the head were performed without the use of intravenous contrast. A dose lowering technique was utilized adhering to the principles of ALARA. Comparison: 04/13/2012 Findings: The paranasal sinuses and mastoid air cells are clear. The calvarium and skull base are intact. The ventricles and sulci are within normal limits. There is no mass, hematoma, midline shift, or acute infarct. Age-related atrophy and chronic small vessel change Impression: No acute intracranial abnormality. Age-related atrophy and chronic small vessel change The above report was generated using voice recognition software. It may contain grammatical, syntax or spelling errors. Electronically signed by: Shiva Greene M.D. 09/26/2018 2:24 PM Dictated: 09/26/18 1416 Transcribed: 09/26/18 1416 XR chest 1V portable CLINICAL HISTORY: Chest Pain dyspnea COMPARISON STUDY: 03/24/2016 FINDINGS: Interval trace fluid both lung bases. No focal infiltrate. Central catheter in superior vena cava. IMPRESSION: Trace pleural effusion both lung bases. Otherwise negative study. The above report was generated using voice recognition software. It may contain grammatical, syntax or spelling errors. Electronically signed by: Shiva Greene M.D. 09/26/2018 1:33 PM Dictated: 09/26/18 1333 Transcribed: 09/26/18 1333 ECG Data Attestation: I personally reviewed and interpreted this ECG as follows: Indication: other (Abnormal labs) Rate (beats per minute): 75 Rhythm: sinus rhythm Findings: + other (normal axis, poor baseline); no PVC Blood Pressure Blood Pressure Findings: Normal blood pressure MDM Narrative Patient is a 73-year-old female with a past medical history of stage IV pancreatic cancer receiving chemotherapy the presents the ER following a CT whic h shows a saddle PE. Vitals were fairly normal. IV was established blood work was obtained and showed a leukocytosis of 10.9 thousand. Hemoglobin 9.6. INR was elevated at 1.7. Patient does not take Coumadin and I favor this elevation is likely secondary to vitamin K depletion. BMP with mild hypokalemia at 3.3. LFTs was slightly elevated at 92 for AST and troponin were unremarkable. Lipase was normal. Bilirubin was elevated at 14.4. Patient does have a known stent placed by GI previously. Do favor that this is likely occluded. Sent for ultrasound. Patient is not significantly tender in the right upper quadrant to suggest acute cholecystitis. Risk and benefits of anticoagulation were discussed at length. She does admit to having an external hemorrhoid and some intermittent bleeding but has improved since MiraLAX. No other bleeding risk factors. CT head was negative. This is performed as she fell several days ago but has no complaints from this. Patient was given a heparin drip and given a heparin bolus and admitted to the hospitalist for further work-up of her elevat ed bilirubin secondary to her pancreatic mass and saddle PE. Impression & Plan Acute saddle pulmonary embolism, Elevated bilirubin Critical Care Time Critical Care Time: Yes (35) Total Critical Care Time: 35 I have personally spent 35 minutes of critical care time in the direct management of this patient. This includes bedside care, interpretation of diagnostic studies, and testing, discussion with consultants, patient, and family members, and other required patient management activities. This 35 minutes is in excess of all separately billable procedures. Discharge Plan Visit Data Chief Complaint: Abnormal Labs/Diagnostic Testing Stated Complaint: HAD CT SENT BY [facility] ED Provider: Elvis Kay Discharge Problem: Acute saddle pulmonary embolism, Elevated bilirubin Patient Disposition: Being Evaluated by Hospitalist Forms Stand Alone Forms: My [facility] Prescriptions Prescriptions: No Action pen needle, diabetic [BD Ultra-Fine Susan Pen Needle] 32 gauge x 5/32" needle .ROUTE .MEDSUPPLY Qty: 10 RF: 0 FreeStyle Maya 14 Day Hardy misc .ROUTE .MEDSUPPLY Qty: 1 RF: 0 FreeStyle Maya 14 Day Sensor kit .ROUTE .MEDSUPPLY Qty: 1 RF: 0 Humulin N NPH Insulin KwikPen 100 unit/mL (3 mL) insulin pen See Patient Comments .ROUTE .COMPLEX RF: 0 ondansetron HCl [Zofran] 8 mg tablet 8 mg PO TID PRN (Reason: nausea) RF: 0 lancets [OneTouch Delica Lancets] 33 gauge misc .ROUTE .MEDSUPPLY Qty: 100 RF: 0 OneTouch Verio strip .ROUTE .MEDSUPPLY Qty: 10 RF: 0 cholecalciferol (vitamin D3) 1,000 unit capsule 1,000 units PO QAM RF: 0 pantoprazole 40 mg tablet,delayed release (DR/EC) 40 mg PO QAM RF: 0 docusate sodium [Colace] 100 mg Capsule 100 mg PO BID RF: 0 polyethylene glycol 3350 [Miralax] 17 gram/dose Powder 17 g PO BID RF: 0 metoclopramide HCl 10 mg tablet 10 mg PO TIDM RF: 0 citalopram 20 mg Tablet 20 mg PO QAM RF: 0 potassium chloride [Klor-Con M10] 10 mEq tablet,ER particles/crystals 10 meq PO QAM RF: 0 Referrals Referrals: Glenn Calles MD [Primary Care Provider] - Discharge Problem: Acute saddle pulmonary embolism Qualifiers: Acute cor pulmonale presence: without acute cor pulmonale Qualified Code(s): I26.92 - Saddle embolus of pulmonary artery without acute cor pulmonale The scribe's documentation has been prepared under my direction and personally reviewed by me in its entirety. I confirm that the note above accurately reflects all work, treatment, procedures, and medical decision making performed by me.
[2018-09-26] MEDS ORDERED: MoRPHine SULFATE 2 MG/ML CARP IV PRN (19:03)
[2018-09-26] MEDS ORDERED: ALUMINUM/MAGNESIUM SUSP 30 ML UDC PO PRN (19:03)
[2018-09-26] MEDS ORDERED: CARBOHYDRATES FOR HYPOGLYCEMIA PO PRN (19:30)
[2018-09-26] MEDS ORDERED: GLUCOSE 40% GEL 15 GM TUBE PO PRN (19:30)
[2018-09-26] MEDS ORDERED: GLUCOSE 10 TABS/TUBE PO PRN (19:30)
[2018-09-26] MEDS ORDERED: DEXTROSE 50% 50 ML SYRINGE IV PRN (19:30)
[2018-09-26] MEDS ORDERED: GLUCAGON FOR INJ 1 MG VIAL IM PRN (19:30)
[2018-09-26] MEDS: POTASSIUM CHLORIDE 10 MEQ in SODIUM CHLORIDE 0.9% 1000ML 1,000 ML IV SCH (19:53)
[2018-09-26] MEDS: DOCUSATE SODIUM 100 MG CAP PO SCH (21:49)
[2018-09-26] MEDS: POLYETHYLENE (MIRALAX) 17 GM PACK PO SCH (21:49)
[2018-09-26] MEDS: INSULIN ASPART 100 UNITS/ML 3 ML PEN SC SCH (21:50)
[2018-09-27 01:33] LABS: Partial Thromboplastin Ratio > 5.1
[2018-09-27 01:42] LABS: Partial Thromboplastin Time > 139.0 Seconds (21.0-31.0)
[2018-09-27 03:06] LABS: Basophils # (auto) 0.01 K/uL (0-0.2); Basophils % (auto) 0.1 %; Eosinophils # (auto) 0.05 K/uL (0-0.5); Eosinophils % (auto) 0.5 %; Hematocrit (blood only) 26.4 % (37-47); Hemoglobin 8.8 g/dL (12.0-16.0); Immature Granulocytes # (auto) 0.09 K/uL (0.00-0.02); Immature Granulocytes % (auto) 0.8 %; Lymphocytes # (auto) 0.66 K/uL (1.2-3.4); Lymphocytes % (auto) 6.1 %; Mean Corpuscular Hgb Conc 33.3 g/dL (32-36); Mean Platelet Volume 9.8 fL (7.4-10.4); Monocytes # (auto) 1.24 K/uL (0.11-0.59); Monocytes % (auto) 11.5 %; Neutrophils # (auto) 8.72 K/uL (1.4-6.5); Platelet Count 198 K/uL (130-400); RDW Coefficient of Variation 17.3 % (11.5-14.5); RDW Standard Deviation 57.9 fL (36.4-46.3); Red Blood Count 2.87 M/uL (4.2-5.4); White Blood Count 10.77 K/uL (4.8-10.8)
[2018-09-27 03:37] LABS: Partial Thromboplastin Ratio 2.7
[2018-09-27 03:42] LABS: Albumin Globulin Ratio 0.5 (0.9-2); Albumin Level 1.4 gm/dl (3.4-5.0); BUN Creatinine Ratio 17.7 (10-20); Bilirubin,Total 13.4 mg/dl (0.2-1); Calcium 7.7 mg/dl (8.5-10.1); Creatinine Clr Calc Pharmacy 77.8 ml/min; Est GFR (African American) 105.7; Est GFR (Non-African American) 91.2; Globulin 2.9 gm/dl (2.5-4.0); Potassium 3.5 mmol/L (3.5-5.1); Total Protein 4.3 gm/dl (6.4-8.2)
[2018-09-27 04:01] LABS: Partial Thromboplastin Time 73.6 Seconds (21.0-31.0)
[2018-09-27] MEDS: POTASSIUM CHLORIDE 10 MEQ in SODIUM CHLORIDE 0.9% 1000ML 1,000 ML IV SCH ×2 (08:07→21:29)
[2018-09-27] MEDS: POTASSIUM CHLORIDE 10 MEQ TABCR PO SCH (08:08)
[2018-09-27] MEDS: CITALOPRAM 20 MG TAB PO SCH (08:08)
[2018-09-27] MEDS: DOCUSATE SODIUM 100 MG CAP PO SCH ×2 (08:08→21:27)
[2018-09-27] MEDS: CHOLECALCIFEROL 1,000 UNITS TAB PO SCH (08:09)
[2018-09-27] MEDS: PANTOprazole 40 MG TAB PO SCH (08:09)
[2018-09-27] MEDS: INSULIN ASPART 100 UNITS/ML 3 ML PEN SC SCH ×4 (09:50→21:31)
[2018-09-27 10:40] LABS: Partial Thromboplastin Ratio 4.2
[2018-09-27 10:42] LABS: Partial Thromboplastin Time 113.1 Seconds (21.0-31.0)
[2018-09-27] MEDS: POLYETHYLENE (MIRALAX) 17 GM PACK PO SCH ×2 (10:50→21:32)
[2018-09-27 11:22] LABS: Prothrombin Time 19.8 Seconds (9.0-12.0)
--- NOTE | 2018-09-27 15:28 | Ultrasound Report ---
US venous doppler LE BI CLINICAL HISTORY: Leg swelling. COMPARISON STUDY: No previous studies for comparison. FINDINGS: Grayscale color flow and Doppler spectral waveform analysis was performed. On the right, no thrombus was visualized within the common femoral or superficial femoral veins. Ther e is right popliteal DVT which appears acute. There was broken flow within the right posterior tibial and peroneal veins. On the left, no thrombus was visualized in the common femoral, superficial femoral, or popliteal vein s. There is broken flow within the left posterior tibial and peroneal veins. There is a superficial t hrombus within left popliteal region. There is a small left popliteal cyst. IMPRESSION: 1. Acute right lower extremity DVT involving the popliteal vein with equivocal involvement of the pos terior tibial and peroneal veins 2. Superficial thrombus within the left posterior knee region 3. Left popliteal cyst Electronically signed by: Carlo Tavarez M.D. 09/27/2018 3:27 PM
--- NOTE | 2018-09-27 16:15 | Gastrointestinal Consultation ---
Date of Consultation September 27, 2018 Assessment & Plan (1) Malignant neoplasm of pancreas: Patient is s/p ERCP with pancreatic stenting in January, admitted with a saddle embolus as well as DVT, and worsening LFTs. Anesthesia requests IVC filter to be placed prior to repeat ERCP. Will tentatively plan for tomorrow. Please keep her NPO after midnight. Supervising Physician Co-Signing Physician Notes Late entry: patient was seen and examined on 09/27 with Jacqueline May PA-C whose note reflects our findings and plan. Pt with worsening metastatic pancreatic cancer with liver mets admitted with saddle PE. Found to have worsening LFTs and concern for biliary obstruction. No evidence of cholangitis at present. Has a biliary stent in place which is plastic. Family in process of discussing ultimate goals. If decision made to proceed with agressive care, will need possible IVC filter (per anesthesia) and ERCP for stent exchange given risk for cholangitis. History of Present Illness Reason for Consultation: Worsening LFTs Requesting Physician: Yusra Pacheco MD Attending Physician: Adela Negro DO History of Present Illness 73 year old female with a hx of pancreatic CA s/p plastic CBD stent placement this past January, who underwent OP CT scan for a recheck due to increased nausea and weight loss, found to have a saddle PE. She was placed on IV heparin and admitted. She denies any significant SOB or chest pain, but does have "twinges" of chest discomfort. We have been asked to see her due to worsening elevation of LFTs. Labs on admission show an AST of 92, ALT of 68, ALP of 698 and Tbili of 14.4. Lipase normal at 20. Repeat today is similar. CTAP showed progression of metastatic disease with anasarca, bilateral pleural effusions and pancreatic and biliary ductal prominence. She reports that she is still on chemotherapy, managed by Dr. Jackson. Her last dose will be 2 weeks ago tomorrow. She reports left sided abdominal pain for the past few weeks, occurring a few times daily. The pain is quick and very sharp, and then dissipates. She denies any n/v to me today. No heartburn. Bowels had been moving slow, but she was placed on Miralax and states that now they are mov ing much better. No BRB or melena. Allergies Allergy/AdvReac Type Severity Reaction Status Date / Time No Known Drug Allergies Allergy Verified 09/26/18 15:27 Home Medications Home Medications Medication Instructions Recorded Confirmed Type citalopram 20 mg PO QAM 02/10/18 09/26/18 History potassium chloride [Klor-Con M10] 10 meq PO QAM 02/10/18 09/26/18 History blood sugar diagnostic strips #10 ea 08/17/18 09/26/18 History cholecalciferol (vitamin D3) 1,000 1,000 units PO QAM cap 08/17/18 09/26/18 History unit capsule flash glucose scanning reader #1 ea 08/17/18 09/26/18 History flash glucose sensor kit #1 ea 08/17/18 09/26/18 History insulin NPH isophane U-100 human See Rx Instructions .ROUTE .COMPLEX 08/17/18 09/26/18 History 100 unit/mL (3 mL) subcutaneous pen lancets 33 gauge #100 ea 08/17/18 09/26/18 History ondansetron HCl 8 mg tablet 8 mg PO TID PRN 08/17/18 09/26/18 History pen needle, diabetic 32 gauge x #10 ea 08/17/18 09/26/18 History 5/32" docusate sodium [Colace] 100 mg PO BID 09/26/18 09/26/18 History metoclopramide HCl 10 mg PO TIDM 09/26/18 09/26/18 History pantoprazole 40 mg PO QAM 09/26/18 09/26/18 History polyethylene glycol 3350 [Miralax] 17 g PO BID 09/26/18 09/26/18 History Patient History Medical History Type 2 diabetes mellitus (Chronic) Hypokalemia (Acute) Acute saddle pulmonary embolism (Acute) Diabetes mellitus type II, uncontrolled (Chronic) Malignant neoplasm of pancreas (Chronic) Umbilical hernia (Acute) Solitary thyroid nodule (Acute) Sensorineural hearing loss (SNHL) of both ears (Acute) Pancreatic mass (Acute) Osteoporosis (Acute) Internal hemorrhoids (Acute) Generalized osteoarthritis of multiple sites (Acute) Generalized anxiety disorder (Acute) Gastroesophageal reflux disease (Acute) Diverticulosis (Acute) Common bile duct (CBD) obstruction (Acute) Cholelithiases (Acute) Arthritis of left hip Chronic sinusitis History of pancreatic cancer (Acute) Hx of renal cell cancer (Acute) r kidney Anxiety Depression Epigastric pain H/O gastroesophageal reflux (GERD) Hearing deficit Hyperglycemia Hypertension Osteoarthritis Skin cancer Surgical History History of total hip arthroplasty April 2016 l hip History of herniorrhaphy Family History Mother Hypertension Heart disease Social History Preferred Language: Wolof Communication Ability: Effective Visual Impairment: Partially Limited Hearing Ability: Normal Beliefs That Will Affect Care: None Current Living Situation: Family Current Living Situation Comment: lives with daughter Other Information That Helps Us Care for You: No Feels Safe at Home: Yes Safety Concerns: Feels Safe At This Time Smoking Status: Never smoker Hx Alcohol Use: No Hx Substance Use: No Review of Systems Constitutional: no fever, no chills, no fatigue and no weight loss Eyes: no eye pain and no worsening vision Ear, Nose, Mouth, Throat: no ear pain, no hearing loss, no nasal congestion and no sore throat Respiratory: no cough, no chest congestion, no dyspnea and no wheezing Cardiovascular: no dyspnea Additional Comments: mild, intermittent chest discomfort Gastrointestinal: as per Subjective / HPI Genitourinary: no dysuria and no urinary incontinence Musculoskeletal: + back pain; no joint pain Integumentary: no rash and no pruritus Neurologic: no tingling, no numbness and no dizziness Psychiatric: no suicidal ideation and no confusion Endocrine: no cold intolerance and no heat intolerance Hematologic / Lymphatic: no easy bleeding and no easy bruising Allergy / Immunological: no problem reported Physical Exam Constitutional: + ill appearing; no acute distress Eyes: +icterus ENMT: external ear and nose normal, oropharynx normal Neck: normal visual inspection Respiratory: normal respiratory effort, lungs clear to auscultation Cardiovascular: Rate/Rhythm: regular rate and regular rhythm Heart Sounds: no murmur Gastrointestinal (Abdomen): Inspection/Auscultation: + hyperactive bowel sounds Percussion/Palpation: + abdomen tender (mild LUQ/LLQ tenderness) and abdomen soft Musculoskeletal: Head/Neck/Chest: normocephalic and head atraumatic Skin: no rashes, warm and dry + jaundice Neurologic: moves all extremities; no focal motor deficits Psychiatric: Orientation: alert and oriented x 3 Results & Data Vital Signs (Past 12 Hours) Vital Signs Temp Pulse Pulse Resp BP BP Pulse Ox 09/27/18 15:30 36.8 C 77 18 127/70 97 09/27/18 11:08 36.7 C 82 16 112/63 95 09/27/18 06:52 37.1 C 80 18 105/63 97 Laboratory Results - last 24 hr 09/26/18 09/26/18 09/26/18 19:05 21:26 23:52 WBC RBC Hgb Hct MCV MCH MCHC RDW Std Deviation RDW Coeff of Td Plt Count MPV Immature Gran % (Auto) Neut % (Auto) Lymph % (Auto) Warren % (Auto) Eos % (Auto) Baso % (Auto) Immature Gran # (Auto) Neut # (Auto) Lymph # (Auto) Warren # (Auto) Eos # (Auto) Baso # (Auto) PT INR APTT Cancelled PTT Ratio Cancelled Sodium Potassium Chloride Carbon Dioxide Anion Gap BUN Creatinine Est Cr Clr Drug Dosing Est GFR ( Amer) Est GFR (Non-Af Amer) BUN/Creatinine Ratio Glucose POC Glucose 77 132 H Calcium Total Bilirubin AST ALT Alkaline Phosphatase Total Protein Albumin Globulin Albumin/Globulin Ratio Specimen Hemolysis 09/27/18 09/27/18 09/27/18 01:00 02:56 02:56 WBC 10.77 RBC 2.87 L Hgb 8.8 L Hct 26.4 L MCV 92.0 MCH 30.7 MCHC 33.3 RDW Std Deviation 57.9 H RDW Coeff of Td 17.3 H Plt Count 198 MPV 9.8 Immature Gran % (Auto) 0.8 Neut % (Auto) 81.0 Lymph % (Auto) 6.1 Warren % (Auto) 11.5 Eos % (Auto) 0.5 Baso % (Auto) 0.1 Immature Gran # (Auto) 0.09 H Neut # (Auto) 8.72 H Lymph # (Auto) 0.66 L Warren # (Auto) 1.24 H Eos # (Auto) 0.05 Baso # (Auto) 0.01 PT INR APTT > 139.0 H* PTT Ratio > 5.1 Sodium 136 Potassium 3.5 Chloride 103 Carbon Dioxide 25 Anion Gap 8.0 BUN 10 Creatinine 0.56 L Est Cr Clr Drug Dosing 77.8 Est GFR ( Amer) 105.7 Est GFR (Non-Af Amer) 91.2 BUN/Creatinine Ratio 17.7 Glucose 99 POC Glucose Calcium 7.7 L Total Bilirubin 13.4 H AST 83 H ALT 57 Alkaline Phosphatase 614 H Total Protein 4.3 L Albumin 1.4 L Globulin 2.9 Albumin/Globulin Ratio 0.5 L Specimen Hemolysis Cancelled 09/27/18 09/27/18 09/27/18 02:56 07:53 10:08 WBC RBC Hgb Hct MCV MCH MCHC RDW Std Deviation RDW Coeff of Td Plt Count MPV Immature Gran % (Auto) Neut % (Auto) Lymph % (Auto) Warren % (Auto) Eos % (Auto) Baso % (Auto) Immature Gran # (Auto) Neut # (Auto) Lymph # (Auto) Warren # (Auto) Eos # (Auto) Baso # (Auto) PT INR APTT 73.6 H* 113.1 H* PTT Ratio 2.7 4.2 Sodium Potassium Chloride Carbon Dioxide Anion Gap BUN Creatinine Est Cr Clr Drug Dosing Est GFR ( Amer) Est GFR (Non-Af Amer) BUN/Creatinine Ratio Glucose POC Glucose 102 H Calcium Total Bilirubin AST ALT Alkaline Phosphatase Total Protein Albumin Globulin Albumin/Globulin Ratio Specimen Hemolysis 09/27/18 09/27/18 10:08 12:02 WBC RBC Hgb Hct MCV MCH MCHC RDW Std Deviation RDW Coeff of Td Plt Count MPV Immature Gran % (Auto) Neut % (Auto) Lymph % (Auto) Warren % (Auto) Eos % (Auto) Baso % (Auto) Immature Gran # (Auto) Neut # (Auto) Lymph # (Auto) Warren # (Auto) Eos # (Auto) Baso # (Auto) PT 19.8 H INR 2.0 H APTT PTT Ratio Sodium Potassium Chloride Carbon Dioxide Anion Gap BUN Creatinine Est Cr Clr Drug Dosing Est GFR ( Amer) Est GFR (Non-Af Amer) BUN/Creatinine Ratio Glucose POC Glucose 144 H Calcium Total Bilirubin AST ALT Alkaline Phosphatase Total Protein Albumin Globulin Albumin/Globulin Ratio Specimen Hemolysis CTAP: IMPRESSION: 1. Findings consistent with general development of and/or mild progression of metastatic disease. 2. Interval development of body wall anasarca. 3. Interval small bilateral pleural effusions. 4. Probable progressive hepatic metastatic disease. 5 interval development of [id number] abdominal and pelvic ascites. 6. Slightly progressive pancreatic head lesion with unchanging pancreatic and biliary ductal prominence. 7. Slightly progressive size of the pancreatic head lesion. 8. Somewhat progressive pancreatic head lesion Chest CT: IMPRESSION: 1. Saddle embolus within the right and left main pulmonary arteries. No right- sided heart strain at this time.. 2. Small bilateral pleural effusions and ascites which has progressed. 3. Slight progression of the mildly enlarged mediastinal lymph nodes. 4. Increase in size in the hepatic metastatic lesions. This is better appreciated on the same day abdomen and pelvis CT. 5. These findings were immediately called to the patient's nurse practitioner, Mirta De La Torre, at 1:00 PM on 09/26/2018. Pancreas US: IMPRESSION: 1. There is intra and extrahepatic biliary ductal dilatation as well as pancreatic ductal dilatation secondary to a pancreatic head mass. 2. There is hepatic metastatic disease. 3. These findings lower better assessed on today's CT scan. 4. The gallbladder is distended and filled with stones and sludge. Acute cholecystitis would be impossible to exclude and clinical correlation will be required. 5. Upper abdominal ascites and right pleural effusion. 6. A 1.8 cm mass in the lower pole of left kidney remains consistent with renal cell carcinoma. Venous doppler: IMPRESSION: 1. Acute right lower extremity DVT involving the popliteal vein with equivocal involvement of the posterior tibial and peroneal veins 2. Superficial thrombus within the left posterior knee region 3. Left popliteal cyst
--- NOTE | 2018-09-27 16:25 | Anesthesiology Progress Note ---
Date of Service September 27, 2018 Anesthesia Post Procedure Vital Signs Vital Signs: Temp Pulse Pulse Resp BP BP Pulse Ox 09/27/18 15:30 36.8 C 77 18 127/70 97 09/27/18 11:08 36.7 C 82 16 112/63 95 09/27/18 06:52 37.1 C 80 18 105/63 97 09/26/18 23:22 37 C 87 20 102/60 94 09/26/18 19:19 36.7 C 79 16 97 09/26/18 17:00 78 16 120/58 L 97 Transfer of Care Handoff Completed per policy Notes Mental Status: alert / awake / arousable Patient Amnestic to Procedure: Yes Nausea / Vomiting: adequately controlled Pain: adequately controlled Airway Patency, RR, SpO2: stable & adequate BP & HR: stable & adequate Hydration State: stable & adequate Anesthetic Complications: no major complications apparent Notes: Patient is at baseline mental status
--- NOTE | 2018-09-27 17:12 | Hospitalist Progress Note ---
Date of Service September 27, 2018 Assessment & Plan (1) Acute saddle pulmonary embolism: - In setting of metastatic pancreatic cancer; noted on CT chest completed during staging scans as outpatient. - Doppler of bilat LE: acute RLE DVT involving popliteal vein with involvement of posterior tibial and peroneal veins; superficial thrombus within left posterior knee region. - Continue Heparin infusion (will need to hold for procedures); convert to Lovenox vs oral agent (if approved in oncology population) at discharge. - Vascular surgery consulted for IVC filter placement. - Is currently hemodynamically stable. (2) Malignant neoplasm of pancreas: - Completed staging scans as outpatient to evaluate for progression of disease. - Consult oncologist as inpt for evaluation. - Consider palliative consult -- appears to have progression of hepatic mets on imaging. (3) Elevated bilirubin: - Jaundice with elevated T. bili -- between 13-14 on labs. - Possibly related to bile duct obstruction in setting of hepatic metastases -- has intra and extra hepatic biliary duct dilatation as well as pancreatic ductal dilatation on US. - Consulted GI for input -- plan for ERCP with possible biliary stent placement if necessary. Will need IVC filter placement prior to surgery. - Monitor LFTs daily. (4) Prolonged INR: - INR was 2.0 -- likely related to liver mets. - Will repeat labs in AM -- consider Vit K for procedure. (5) Type 2 diabetes mellitus: - Hgb A1C was 9.2. - SSI coverage. (6) Renal mass: - 1.8 cm mass in lower pole of the left kidney -- ?renal cell carcinoma, has not been biopsied. (7) Anemia: - In setting of recent chemo. - Monitor CBC daily. (8) Hypokalemia: - Replace as needed. (9) DVT prophylaxis: - Heparin drip. Dispo: Med/surg; discharge pending completion in ERCP with improvement in T. bili, IVC filter placement with anticoagulation plan. Supervising Physician Co-Signing Physician Notes BEV Supervision Note: I did not personally see or examine the patient today, but I verified all bingham points of BEV Watts's assessment and plan with the following exceptions/additions: None Subjective Pt. is doing well overall. Denies chest pain, pleuritic pain, SOB, hemoptysis related to PE. Is jaundiced -- related to elevated T. bili. Does have bilat calf pain -- related to DVTs. Review of Systems Review of Systems: All systems reviewed & are unremarkable except as noted in HPI & below Constitutional: + anorexia; no fever, no chills, no fatigue, no weakness and no weight loss Respiratory: no cough, no dyspnea, no dyspnea on exertion, no hemoptysis, no pain on inspiration and no wheezing Cardiovascular: + calf pain; no chest pain, no palpitations, no lightheadedness and no edema Gastrointestinal: no abdominal pain, no nausea, no vomiting, no constipation and no diarrhea/loose stools Genitourinary: no dysuria and no difficulty urinating Musculoskeletal: no back pain and no joint pain Integumentary: no non-healing lesions Physical Exam Physical Exam: General: Resting comfortably HEENT: NC/AT; PERRLA with EOMI; Scleral icterus Neck: Supple and nontender Cardiac: RRR Lungs: CTA bilaterally Abdomen: Mild distention; bowel normoactive X 4; Nontender to palpation Extremities: Warm. No edema present. Tenderness to deep palpation over calves. Neuro: No focal weakness Skin: Diffuse jaundice Results & Data Vital Signs (Past 12 Hours) Vital Signs Temp Pulse Pulse Resp BP BP Pulse Ox 09/27/18 15:30 36.8 C 77 18 127/70 97 09/27/18 11:08 36.7 C 82 16 112/63 95 09/27/18 06:52 37.1 C 80 18 105/63 97 Laboratory Results 09/27/18 09/27/18 09/27/18 Range/Units 12:02 10:08 10:08 WBC (4.8-10.8) K/uL RBC (4.2-5.4) M/uL Hgb (12.0-16.0) g/dL Hct (37-47) % MCV (80-100) fL MCH (25-34) pg MCHC (32-36) g/dL RDW Std Deviation (36.4-46.3) fL RDW Coeff of Td (11.5-14.5) % Plt Count (130-400) K/uL MPV (7.4-10.4) fL Immature Gran % (Auto) % Neut % (Auto) % Lymph % (Auto) % Lake % (Auto) % Eos % (Auto) % Baso % (Auto) % Immature Gran # (Auto) (0.00-0.02) K/uL Neut # (Auto) (1.4-6.5) K/uL Lymph # (Auto) (1.2-3.4) K/uL Lake # (Auto) (0.11-0.59) K/uL Eos # (Auto) (0-0.5) K/uL Baso # (Auto) (0-0.2) K/uL PT 19.8 H (9.0-12.0) Seconds INR 2.0 H (0.9-1.1) APTT 113.1 H* PTT Ratio 4.2 Sodium (136-145) mmol/L Potassium (3.5-5.1) mmol/L Chloride (98-107) mmol/L Carbon Dioxide (21-32) mmol/L Anion Gap (3-11) BUN (7-18) mg/dl Creatinine (0.6-1.2) mg/dl Est Cr Clr Drug Dosing ml/min Est GFR ( Amer) Est GFR (Non-Af Amer) BUN/Creatinine Ratio (10-20) Glucose (70-99) mg/dl POC Glucose 144 H (70-99) Calcium (8.5-10.1) mg/dl Total Bilirubin (0.2-1) mg/dl AST (15-37) U/L ALT (12-78) U/L Alkaline Phosphatase (45-117) U/L Total Protein (6.4-8.2) gm/dl Albumin (3.4-5.0) gm/dl Globulin (2.5-4.0) gm/dl Albumin/Globulin Ratio (0.9-2) Specimen Hemolysis 09/27/18 09/27/18 09/27/18 Range/Units 07:53 02:56 02:56 WBC (4.8-10.8) K/uL RBC (4.2-5.4) M/uL Hgb (12.0-16.0) g/dL Hct (37-47) % MCV (80-100) fL MCH (25-34) pg MCHC (32-36) g/dL RDW Std Deviation (36.4-46.3) fL RDW Coeff of Td (11.5-14.5) % Plt Count (130-400) K/uL MPV (7.4-10.4) fL Immature Gran % (Auto) % Neut % (Auto) % Lymph % (Auto) % Lake % (Auto) % Eos % (Auto) % Baso % (Auto) % Immature Gran # (Auto) (0.00-0.02) K/uL Neut # (Auto) (1.4-6.5) K/uL Lymph # (Auto) (1.2-3.4) K/uL Lake # (Auto) (0.11-0.59) K/uL Eos # (Auto) (0-0.5) K/uL Baso # (Auto) (0-0.2) K/uL PT (9.0-12.0) Seconds INR (0.9-1.1) APTT 73.6 H* PTT Ratio 2.7 Sodium 136 (136-145) mmol/L Potassium 3.5 (3.5-5.1) mmol/L Chloride 103 (98-107) mmol/L Carbon Dioxide 25 (21-32) mmol/L Anion Gap 8.0 (3-11) BUN 10 (7-18) mg/dl Creatinine 0.56 L (0.6-1.2) mg/dl Est Cr Clr Drug Dosing 77.8 ml/min Est GFR ( Amer) 105.7 Est GFR (Non-Af Amer) 91.2 BUN/Creatinine Ratio 17.7 (10-20) Glucose 99 (70-99) mg/dl POC Glucose 102 H (70-99) Calcium 7.7 L (8.5-10.1) mg/dl Total Bilirubin 13.4 H (0.2-1) mg/dl AST 83 H (15-37) U/L ALT 57 (12-78) U/L Alkaline Phosphatase 614 H (45-117) U/L Total Protein 4.3 L (6.4-8.2) gm/dl Albumin 1.4 L (3.4-5.0) gm/dl Globulin 2.9 (2.5-4.0) gm/dl Albumin/Globulin Ratio 0.5 L (0.9-2) Specimen Hemolysis Cancelled 09/27/18 09/27/18 09/26/18 Range/Units 02:56 01:00 23:52 WBC 10.77 (4.8-10.8) K/uL RBC 2.87 L (4.2-5.4) M/uL Hgb 8.8 L (12.0-16.0) g/dL Hct 26.4 L (37-47) % MCV 92.0 (80-100) fL MCH 30.7 (25-34) pg MCHC 33.3 (32-36) g/dL RDW Std Deviation 57.9 H (36.4-46.3) fL RDW Coeff of Td 17.3 H (11.5-14.5) % Plt Count 198 (130-400) K/uL MPV 9.8 (7.4-10.4) fL Immature Gran % (Auto) 0.8 % Neut % (Auto) 81.0 % Lymph % (Auto) 6.1 % Lake % (Auto) 11.5 % Eos % (Auto) 0.5 % Baso % (Auto) 0.1 % Immature Gran # (Auto) 0.09 H (0.00-0.02) K/uL Neut # (Auto) 8.72 H (1.4-6.5) K/uL Lymph # (Auto) 0.66 L (1.2-3.4) K/uL Lake # (Auto) 1.24 H (0.11-0.59) K/uL Eos # (Auto) 0.05 (0-0.5) K/uL Baso # (Auto) 0.01 (0-0.2) K/uL PT (9.0-12.0) Seconds INR (0.9-1.1) APTT > 139.0 H* Cancelled PTT Ratio > 5.1 Cancelled Sodium (136-145) mmol/L Potassium (3.5-5.1) mmol/L Chloride (98-107) mmol/L Carbon Dioxide (21-32) mmol/L Anion Gap (3-11) BUN (7-18) mg/dl Creatinine (0.6-1.2) mg/dl Est Cr Clr Drug Dosing ml/min Est GFR ( Amer) Est GFR (Non-Af Amer) BUN/Creatinine Ratio (10-20) Glucose (70-99) mg/dl POC Glucose (70-99) Calcium (8.5-10.1) mg/dl Total Bilirubin (0.2-1) mg/dl AST (15-37) U/L ALT (12-78) U/L Alkaline Phosphatase (45-117) U/L Total Protein (6.4-8.2) gm/dl Albumin (3.4-5.0) gm/dl Globulin (2.5-4.0) gm/dl Albumin/Globulin Ratio (0.9-2) Specimen Hemolysis 09/26/18 09/26/18 Range/Units 21:26 19:05 WBC (4.8-10.8) K/uL RBC (4.2-5.4) M/uL Hgb (12.0-16.0) g/dL Hct (37-47) % MCV (80-100) fL MCH (25-34) pg MCHC (32-36) g/dL RDW Std Deviation (36.4-46.3) fL RDW Coeff of Td (11.5-14.5) % Plt Count (130-400) K/uL MPV (7.4-10.4) fL Immature Gran % (Auto) % Neut % (Auto) % Lymph % (Auto) % Lake % (Auto) % Eos % (Auto) % Baso % (Auto) % Immature Gran # (Auto) (0.00-0.02) K/uL Neut # (Auto) (1.4-6.5) K/uL Lymph # (Auto) (1.2-3.4) K/uL Lake # (Auto) (0.11-0.59) K/uL Eos # (Auto) (0-0.5) K/uL Baso # (Auto) (0-0.2) K/uL PT (9.0-12.0) Seconds INR (0.9-1.1) APTT PTT Ratio Sodium (136-145) mmol/L Potassium (3.5-5.1) mmol/L Chloride (98-107) mmol/L Carbon Dioxide (21-32) mmol/L Anion Gap (3-11) BUN (7-18) mg/dl Creatinine (0.6-1.2) mg/dl Est Cr Clr Drug Dosing ml/min Est GFR ( Amer) Est GFR (Non-Af Amer) BUN/Creatinine Ratio (10-20) Glucose (70-99) mg/dl POC Glucose 132 H 77 (70-99) Calcium (8.5-10.1) mg/dl Total Bilirubin (0.2-1) mg/dl AST (15-37) U/L ALT (12-78) U/L Alkaline Phosphatase (45-117) U/L Total Protein (6.4-8.2) gm/dl Albumin (3.4-5.0) gm/dl Globulin (2.5-4.0) gm/dl Albumin/Globulin Ratio (0.9-2) Specimen Hemolysis PG Care Time/CCT Total # of Minutes Spent Total Time Spent with Patient: Total time spent is greater than 50% in coordination of care (as documented) at patient's floor/unit and/or counseling patient: (1) Acute saddle pulmonary embolism Acute cor pulmonale presence: without acute cor pulmonale Qualified Code(s): I26.92 - Saddle embolus of pulmonary artery without acute cor pulmonale
[2018-09-27 18:12] LABS: Partial Thromboplastin Ratio 2.6
[2018-09-27 18:21] LABS: Partial Thromboplastin Time 70.8 Seconds (21.0-31.0)
[2018-09-27] MEDS ORDERED: Nursing to Pharmacy Communication ONE (23:49)
[2018-09-28 01:03] LABS: Partial Thromboplastin Ratio 3.1
[2018-09-28 01:07] LABS: Partial Thromboplastin Time 82.7 Seconds (21.0-31.0)
[2018-09-28] MEDS: HEPARIN SODIUM/DEXTROSE 25,000 UNITS/500 ML BAG IV SCH (01:56)
[2018-09-28] MEDS: INSULIN ASPART 100 UNITS/ML 3 ML PEN SC SCH ×3 (07:30→22:18)
[2018-09-28 08:15] LABS: Basophils # (auto) 0.01 K/uL (0-0.2); Basophils % (auto) 0.1 %; Eosinophils # (auto) 0.05 K/uL (0-0.5); Eosinophils % (auto) 0.3 %; Hematocrit (blood only) 28.8 % (37-47); Hemoglobin 9.6 g/dL (12.0-16.0); Immature Granulocytes # (auto) 0.21 K/uL (0.00-0.02); Immature Granulocytes % (auto) 1.2 %; Lymphocytes % (auto) 2.9 %; Mean Corpuscular Hgb Conc 33.3 g/dL (32-36); Mean Corpuscular Volume 94.7 fL (80-100); Mean Platelet Volume 9.6 fL (7.4-10.4); Monocytes % (auto) 10.5 %; Neutrophils # (auto) 14.61 K/uL (1.4-6.5); Platelet Count 237 K/uL (130-400); RDW Coefficient of Variation 17.9 % (11.5-14.5); RDW Standard Deviation 60.4 fL (36.4-46.3); Red Blood Count 3.04 M/uL (4.2-5.4); White Blood Count 17.18 K/uL (4.8-10.8)
[2018-09-28 08:34] LABS: Prothrombin Time 19.3 Seconds (9.0-12.0)
[2018-09-28 08:44] LABS: Partial Thromboplastin Ratio 2.7
[2018-09-28] MEDS ORDERED: PIPERACILL/TAZOBAC CONSULT ACTIVE PRN (08:44)
[2018-09-28] MEDS ORDERED: PIPERACILLIN/TAZOBACTAM 3.375 GM in DEXTROSE 5% 100 ML IV SCH (08:45)
[2018-09-28 09:01] LABS: Albumin Globulin Ratio 0.4 (0.9-2); Albumin Level 1.4 gm/dl (3.4-5.0); Bilirubin,Total 15.7 mg/dl (0.2-1); Creatinine Clr Calc Pharmacy 67.1 ml/min; Est GFR (African American) 101.7; Est GFR (Non-African American) 87.7; Globulin 3.3 gm/dl (2.5-4.0); Potassium 3.8 mmol/L (3.5-5.1); Total Protein 4.7 gm/dl (6.4-8.2)
[2018-09-28] MEDS: CHOLECALCIFEROL 1,000 UNITS TAB PO SCH (09:12)
[2018-09-28] MEDS: POTASSIUM CHLORIDE 10 MEQ TABCR PO SCH (09:13)
[2018-09-28] MEDS: CITALOPRAM 20 MG TAB PO SCH (09:13)
[2018-09-28] MEDS: DOCUSATE SODIUM 100 MG CAP PO SCH ×2 (09:13→22:09)
[2018-09-28] MEDS: PANTOprazole 40 MG TAB PO SCH (09:13)
[2018-09-28] MEDS: POLYETHYLENE (MIRALAX) 17 GM PACK PO SCH ×2 (09:13→22:09)
--- NOTE | 2018-09-28 09:14 | Consultation ---
Date of Consultation September 28, 2018 Assessment & Plan (1) Acute saddle pulmonary embolism: Pt currently tx with heparin drip and does not demonstrate signs of acute bleeding, severe SOB, or R heart strain. Pt scheduled for ERCP later today. Do not recommend IVC filter insertion at this time. Recommend continue AC. May interrupt 2 hrs prior to ERCP and restart as soon as deemed safe from surgical standpoint. Please call if needed. Acute cor pulmonale presence: without acute cor pulmonale Qualified Code(s): I26.92 - Saddle embolus of pulmonary artery without acute cor pulmonale Present on Admission?: Yes (2) DVT (deep venous thrombosis): See above Present on Admission?: Yes History of Present Illness Reason for Consultation: saddle embolus, DVT, possible IVC filter Attending Physician: Yusra Pacheco MD History of Present Illness 73 yo f with multiple medical problems including DMII, metastatic pancreatic ca, osteoarthritis, osteoporosis, admitted after incidental finding of saddle PE on routine oncology scanning, seen in consultation today for possible IVC filter insertion prior to ERCP procedure. Pt states she was advised to go to ED after her scan 2 days ago d/t PE. Pt denies lower ext edema or pain, SOB. Denies hx of DVT or PE in past. Pt admits fatigue/malaise and occasional nausea. Denies BHATTI, fever, chills, chest pain, vomiting, rest pain, claudication, other complaints. Pt is scheduled for ERCP and there was question of need for IVC filter d/t interruption of AC for that procedure. CTA demonstrates nonocclusive saddle PE. Venous US demonstrates popliteal v DVT. Allergies Allergy/AdvReac Type Severity Reaction Status Date / Time No Known Drug Allergies Allergy Verified 09/26/18 15:27 Home Medications Home Medications Medication Instructions Recorded Confirmed Type citalopram 20 mg PO QAM 02/10/18 09/26/18 History potassium chloride [Klor-Con M10] 10 meq PO QAM 02/10/18 09/26/18 History blood sugar diagnostic strips #10 ea 08/17/18 09/26/18 History cholecalciferol (vitamin D3) 1,000 1,000 units PO QAM cap 08/17/18 09/26/18 History unit capsule flash glucose scanning reader #1 ea 08/17/18 09/26/18 History flash glucose sensor kit #1 ea 08/17/18 09/26/18 History insulin NPH isophane U-100 human See Rx Instructions .ROUTE .COMPLEX 08/17/18 09/26/18 History 100 unit/mL (3 mL) subcutaneous pen lancets 33 gauge #100 ea 08/17/18 09/26/18 History ondansetron HCl 8 mg tablet 8 mg PO TID PRN 08/17/18 09/26/18 History pen needle, diabetic 32 gauge x #10 ea 08/17/18 09/26/18 History " docusate sodium [Colace] 100 mg PO BID 09/26/18 09/26/18 History metoclopramide HCl 10 mg PO TIDM 09/26/18 09/26/18 History pantoprazole 40 mg PO QAM 09/26/18 09/26/18 History polyethylene glycol 3350 [Miralax] 17 g PO BID 09/26/18 09/26/18 History Patient History Medical History Type 2 diabetes mellitus (Chronic) Hypokalemia (Acute) Acute saddle pulmonary embolism (Acute) Diabetes mellitus type II, uncontrolled (Chronic) Malignant neoplasm of pancreas (Chronic) Umbilical hernia (Acute) Solitary thyroid nodule (Acute) Sensorineural hearing loss (SNHL) of both ears (Acute) Pancreatic mass (Acute) Osteoporosis (Acute) Internal hemorrhoids (Acute) Generalized osteoarthritis of multiple sites (Acute) Generalized anxiety disorder (Acute) Gastroesophageal reflux disease (Acute) Diverticulosis (Acute) Common bile duct (CBD) obstruction (Acute) Cholelithiases (Acute) Arthritis of left hip Chronic sinusitis History of pancreatic cancer (Acute) Hx of renal cell cancer (Acute) r kidney Anxiety Depression Epigastric pain H/O gastroesophageal reflux (GERD) Hearing deficit Hyperglycemia Hypertension Osteoarthritis Skin cancer Surgical History History of total hip arthroplasty April 2016 l hip History of herniorrhaphy Family History Mother Hypertension Heart disease Social History Preferred Language: Polish Communication Ability: Effective Visual Impairment: Partially Limited Hearing Ability: Normal Beliefs That Will Affect Care: None Current Living Situation: Family Current Living Situation Comment: lives with daughter Other Information That Helps Us Care for You: No Feels Safe at Home: Yes Safety Concerns: Feels Safe At This Time Smoking Status: Never smoker Hx Alcohol Use: No Hx Substance Use: No Review of Systems Review of Systems: All systems reviewed & are unremarkable except as noted in HPI & below (fatigue, occ nausea. ) Physical Exam Constitutional: WD/WN, vitals as above well developed, well nourished, + ill appearing, + cachectic, + frail appearing, well groomed, cooperative and comfortable; not in distress and not combative Eyes: EOM intact bilaterally ENMT: external ear and nose normal, oropharynx normal Ears: + hearing impairment Nose: no nasal discharge Throat: no posterior oropharynx abnormality Neck: trachea midline, no thyromegaly no tracheal deviation, no neck crepitus and neck nontender Respiratory: normal respiratory effort, lungs clear to auscultation able to speak in complete sentences; does not use accessory muscles and no cough Auscultation: lungs clear to auscultation bilaterally and + diminished lung sounds; no rhonchi and no wheezes Cardiovascular: RRR, no murmur, no edema Rate/Rhythm: regular rate and regular rhythm Heart Sounds: no gallop and no murmur Vessels: + carotid bruit, femoral pulses present, posterior tibial pulses present, dorsalis pedis pulses present, brachial pulses present and radial pulses present; no femoral bruit and + abnormal peripheral pulses Extremities: normal capillary refill and + vascular access device (infusaport); no edema Gastrointestinal (Abdomen): normal bowel sounds, soft, nontender, no hepatosplenomegaly Inspection/Auscultation: abdomen normal to inspection, normal bowel sounds and + abdominal edema Percussion/Palpation: + abdomen tender and abdomen soft; no guarding and abdomen not rigid Musculoskeletal: no cyanosis or clubbing, extremities motor strength 5/5 Head/Neck/Chest: normocephalic, head atraumatic and neck supple Extremities: extremities normal to inspection and strength 5/5 throughout; full ROM of extremities Skin: normal turgor and + jaundice; no rashes, no ulcers, no erythema, no eschar and no mottling Neurologic: moves all extremities and awake; no focal motor deficits Speech / Cognition: no expressive aphasia and no receptive aphasia Motor/Sensory: no tremor and no sensory deficit Cranial Nerves: EOM intact bilaterally and normal facial strength Psychiatric: Orientation: alert, oriented x 3 and cooperative Apperance: appropriately dressed, appropriately groomed and appeared stated age Affect: + depressed affect Thought Process: goal directed thought process, linea r/logical thought process and clear/coherent thought process Cognition: recent memory grossly intact, remote memory grossly intact, attention grossly intact and language grossly intact Estimated Intelligence: average estimated intelligence Results & Data Vital Signs (Past 12 Hours) Vital Signs Temp Pulse Pulse Resp BP Pulse Ox 09/28/18 07:13 37 C 92 H 16 117/64 94 09/28/18 03:29 37.3 C 91 H 18 123/67 95 09/27/18 23:00 37.1 C 97 H 18 112/66 94
[2018-09-28] MEDS ORDERED: PIPERACILLIN/TAZOBACTAM 3.375 GM in DEXTROSE 5% 100 ML IV ONE (09:15)
[2018-09-28 09:41] LABS: Partial Thromboplastin Time 74.3 Seconds (21.0-31.0)
[2018-09-28] MEDS: POTASSIUM CHLORIDE 10 MEQ in SODIUM CHLORIDE 0.9% 1000ML 1,000 ML IV SCH (10:12)
[2018-09-28] MEDS ORDERED: LARYING-O-JET KIT (LTA) ONE (12:23)
[2018-09-28] MEDS ORDERED: PROPOFOL IV EMULSION 10 MG/ML 20 ML VIAL IV ONE (12:23)
[2018-09-28] MEDS ORDERED: ePHEDrine sulfate 50 MG/ML SYR ONE (12:23)
[2018-09-28] MEDS ORDERED: PHENYLEPHRINE 100MCG/ML 5ML SYR ONE (12:23)
[2018-09-28] MEDS ORDERED: LIDOCAINE HCL 2% 2 ML VIAL/AMP(20MG/ML) INFIL ONE (12:23)
[2018-09-28] MEDS ORDERED: SUCCINYLCHOLINE CHLORIDE 20 MG/ML 10 ML VIAL ONE (12:23)
[2018-09-28] MEDS ORDERED: ONDANSETRON INJ 2 MG/ML 2 ML VIAL ONE (12:23)
[2018-09-28] MEDS ORDERED: DEXAMETHASONE SOD INJ 4 MG/ML VIAL ONE (12:23)
[2018-09-28] MEDS ORDERED: fentaNYL citrate 100 MCG/2 ML VIAL ONE (12:24)
--- NOTE | 2018-09-28 12:54 | Gastroenterology Progress Note ---
Date of Service September 28, 2018 Assessment & Plan (1) Malignant neoplasm of pancreas: Patient is s/p ERCP with pancreatic stenting in January, admitted with a saddle embolus as well as DVT, and worsening LFTs. For ERCP today with repeat stenting. NPO for procedure. Supervising Physician Co-Signing Physician Notes I have seen and examined the patient with Colin May PA-C whose note reflects our findings and plan. Subjective 73 year old female with metastatic pancreatic CA s/p ERCP with stent placement in January, admitted with a saddle embolus as well as DVT, and worsening LFTs. Patient feeling "about the same." No significant n/v. Intermittent abdominal pain. Has been NPO for expected procedure. IVC filter is not recommended by vascular. Recommended to continue current heparin anticoagulation. Blood work shows WBC of 17.18 today - pt afebrile and on antibiotics. Tbili and ALP continue to rise. Review of Systems Constitutional: no fever, no chills, no fatigue and no weight loss Eyes: no eye pain and no worsening vision Ear, Nose, Mouth, Throat: no ear pain, no hearing loss, no nasal congestion and no sore throat Respiratory: + dyspnea on exertion; no cough, no chest congestion and no wheezing Cardiovascular: + dyspnea on exertion; no chest pain Gastrointestinal: as per Subjective / HPI Genitourinary: no dysuria and no urinary incontinence Musculoskeletal: no joint pain Integumentary: no rash and no pruritus Neurologic: no tingling, no numbness and no dizziness Psychiatric: no suicidal ideation and no confusion Endocrine: no cold intolerance and no heat intolerance Hematologic / Lymphatic: no easy bleeding and no easy bruising Allergy / Immunological: no problem reported Physical Exam Constitutional: no acute distress Eyes: +scleral icterus ENMT: external ear and nose normal, oropharynx normal Neck: normal visual inspection Respiratory: normal respiratory effort, lungs clear to auscultation Cardiovascular: Rate/Rhythm: regular rate and regular rhythm Heart Sounds: no murmur Gastrointestinal (Abdomen): Inspection/Auscultation: + hypoactive bowel sounds Percussion/Palpation: abdomen soft; abdomen nontender Musculoskeletal: Head/Neck/Chest: normocephalic and head atraumatic Skin: no rashes, warm and dry + jaundice Neurologic: moves all extremities; no focal motor deficits Psychiatric: Orientation: alert and oriented x 3 Results & Data Vital Signs (Past 12 Hours) Vital Signs Temp Pulse Resp BP Pulse Ox 09/28/18 11:35 36.5 C 80 16 110/63 94 09/28/18 07:13 37 C 92 H 16 117/64 94 09/28/18 03:29 37.3 C 91 H 18 123/67 95 Laboratory Results - last 24 hr 09/27/18 09/27/18 09/27/18 12:02 17:03 17:31 WBC RBC Hgb Hct MCV MCH MCHC RDW Std Deviation RDW Coeff of Td Plt Count MPV Immature Gran % (Auto) Neut % (Auto) Lymph % (Auto) Cotton % (Auto) Eos % (Auto) Baso % (Auto) Immature Gran # (Auto) Neut # (Auto) Lymph # (Auto) Cotton # (Auto) Eos # (Auto) Baso # (Auto) PT INR APTT 70.8 H* PTT Ratio 2.6 Sodium Potassium Chloride Carbon Dioxide Anion Gap BUN Creatinine Est Cr Clr Drug Dosing Est GFR ( Amer) Est GFR (Non-Af Amer) BUN/Creatinine Ratio Glucose POC Glucose 144 H 107 H Calcium Total Bilirubin AST ALT Alkaline Phosphatase Total Protein Albumin Globulin Albumin/Globulin Ratio 09/27/18 09/28/18 09/28/18 20:31 00:33 06:04 WBC RBC Hgb Hct MCV MCH MCHC RDW Std Deviation RDW Coeff of Td Plt Count MPV Immature Gran % (Auto) Neut % (Auto) Lymph % (Auto) Cotton % (Auto) Eos % (Auto) Baso % (Auto) Immature Gran # (Auto) Neut # (Auto) Lymph # (Auto) Cotton # (Auto) Eos # (Auto) Baso # (Auto) PT INR APTT 82.7 H* PTT Ratio 3.1 Sodium Potassium Chloride Carbon Dioxide Anion Gap BUN Creatinine Est Cr Clr Drug Dosing Est GFR ( Amer) Est GFR (Non-Af Amer) BUN/Creatinine Ratio Glucose POC Glucose 172 H 108 H Calcium Total Bilirubin AST ALT Alkaline Phosphatase Total Protein Albumin Globulin Albumin/Globulin Ratio 09/28/18 09/28/18 09/28/18 07:59 07:59 07:59 WBC 17.18 H RBC 3.04 L Hgb 9.6 L Hct 28.8 L MCV 94.7 MCH 31.6 MCHC 33.3 RDW Std Deviation 60.4 H RDW Coeff of Td 17.9 H Plt Count 237 MPV 9.6 Immature Gran % (Auto) 1.2 Neut % (Auto) 85.0 Lymph % (Auto) 2.9 Cotton % (Auto) 10.5 Eos % (Auto) 0.3 Baso % (Auto) 0.1 Immature Gran # (Auto) 0.21 H Neut # (Auto) 14.61 H Lymph # (Auto) 0.50 L Cotton # (Auto) 1.80 H Eos # (Auto) 0.05 Baso # (Auto) 0.01 PT 19.3 H INR 2.0 H APTT PTT Ratio Sodium 139 Potassium 3.8 Chloride 109 H Carbon Dioxide 23 Anion Gap 7.0 BUN 11 Creatinine 0.63 Est Cr Clr Drug Dosing 67.1 Est GFR ( Amer) 101.7 Est GFR (Non-Af Amer) 87.7 BUN/Creatinine Ratio 17.0 Glucose 109 H POC Glucose Calcium 8.0 L Total Bilirubin 15.7 H AST 77 H ALT 60 Alkaline Phosphatase 656 H Total Protein 4.7 L Albumin 1.4 L Globulin 3.3 Albumin/Globulin Ratio 0.4 L 09/28/18 09/28/18 07:59 11:31 WBC RBC Hgb Hct MCV MCH MCHC RDW Std Deviation RDW Coeff of Td Plt Count MPV Immature Gran % (Auto) Neut % (Auto) Lymph % (Auto) Cotton % (Auto) Eos % (Auto) Baso % (Auto) Immature Gran # (Auto) Neut # (Auto) Lymph # (Auto) Cotton # (Auto) Eos # (Auto) Baso # (Auto) PT INR APTT 74.3 H* PTT Ratio 2.7 Sodium Potassium Chloride Carbon Dioxide Anion Gap BUN Creatinine Est Cr Clr Drug Dosing Est GFR ( Amer) Est GFR (Non-Af Amer) BUN/Creatinine Ratio Glucose POC Glucose 140 H Calcium Total Bilirubin AST ALT Alkaline Phosphatase Total Protein Albumin Globulin Albumin/Globulin Ratio
[2018-09-28] MEDS ORDERED: INDOMETHACIN 50 MG SUPP PR ONE (15:18)
--- NOTE | 2018-09-28 15:25 | Anesthesiology Consultation ---
Date of Service September 28, 2018 Assessment & Plan (1) Encounter for pre-operative examination: Chart Review Chart Review: Acceptable Risk for Surgery and Patient NOT seen in Pre Admission Testing Consults Requested none History Surgery Operation Date: 09/28/18 07:00 Proposed Procedures p Endoscopic Retrograde Cholangiopancreatogram - Shar Hyatt MD Height/Weight Height: 5 ft 5 in Weight: 55.1 kg Allergies Allergy/AdvReac Type Severity Reaction Status Date / Time No Known Drug Allergies Allergy Verified 09/26/18 15:27 Medications Home Medications Medication Instructions Recorded Confirmed Last Taken citalopram 20 mg PO QAM 02/10/18 09/26/18 09/25/18 potassium chloride [Klor-Con M10] 10 meq PO QAM 02/10/18 09/26/18 09/25/18 blood sugar diagnostic strips #10 08/17/18 09/26/18 Unknown cholecalciferol (vitamin D3) 1,000 1,000 units PO QAM cap 08/17/18 09/26/18 09/25/18 unit capsule flash glucose scanning reader #1 08/17/18 09/26/18 Unknown flash glucose sensor kit #1 08/17/18 09/26/18 Unknown insulin NPH isophane U-100 human See Rx Instructions .ROUTE .COMPLEX 08/17/18 09/26/18 09/25/18 100 unit/mL (3 mL) subcutaneous pen lancets 33 gauge #100 08/17/18 09/26/18 Unknown ondansetron HCl 8 mg tablet 8 mg PO TID PRN 08/17/18 09/26/18 Unknown pen needle, diabetic 32 gauge x #10 08/17/18 09/26/18 Unknown 5/32" docusate sodium [Colace] 100 mg PO BID 09/26/18 09/26/18 09/25/18 metoclopramide HCl 10 mg PO TIDM 09/26/18 09/26/18 09/25/18 pantoprazole 40 mg PO QAM 09/26/18 09/26/18 09/25/18 polyethylene glycol 3350 [Miralax] 17 g PO BID 09/26/18 09/26/18 09/25/18 Active Medications Generic Name Dose Route Start Last Admin Trade Name Freq PRN Reason Stop Dose Admin Citalopram Hydrobromide 20 mg 09/27/18 09:00 09/28/18 09:13 Celexa PO 10/27/18 08:59 20 mg QAM ANA ROSA Administration Docusate Sodium 100 mg 09/26/18 21:00 09/28/18 09:13 Colace PO 10/26/18 20:59 100 mg BID ANA ROSA Administration Heparin Sodium/Dextrose 25,000 units in 500 mls @ 11 mls/hr 09/26/18 15:15 09/28/18 13:29 Heparin Sodium/Dextrose IV 10/26/18 15:14 0 units/hr .Q24H ANA ROSA 0 mls/hr Titration Protocol 550 UNITS/HR Potassium Chloride 10 meq/ 1,005 mls @ 75 mls/hr 09/26/18 19:30 09/28/18 14:45 Sodium Chloride IV 10/26/18 19:29 0 mls/hr .[id number] ANA ROSA Infusion Insulin Aspart 0 units 09/28/18 06:00 09/28/18 13:19 Novolog Flexpen SC 10/28/18 05:59 Not Given Q6 ANA ROSA Pantoprazole Sodium 40 mg 09/27/18 09:00 09/28/18 09:13 Protonix PO 10/27/18 08:59 40 mg QAM ANA ROSA Administration Polyethylene Glycol 17 gm 09/26/18 21:00 09/28/18 09:13 Miralax Powder Packet PO 10/26/18 20:59 Not Given BID ANA ROSA Potassium Chloride 10 meq 09/27/18 09:00 09/28/18 09:13 Klor-Con M10 PO 10/27/18 08:59 10 meq QAM ANA ROSA Administration Vitamin D 1,000 units 09/27/18 09:00 09/28/18 09:12 Vitamin D3 PO 10/27/18 08:59 1,000 units QAM ANA ROSA Administration NPO Date Last Intake of Fluids: 09/27/18 Time Last Intake of Fluids: 20:00 Last Intake of Fluids Comment: sips of water with meds Date Last Intake of Solids: 09/27/18 Time Last Intake of Solids: 18:00 Past Medical History Medical History Type 2 diabetes mellitus (Chronic) Hypokalemia (Acute) Acute saddle pulmonary embolism (Acute) Diabetes mellitus type II, uncontrolled (Chronic) Malignant neoplasm of pancreas (Chronic) Umbilical hernia (Acute) Solitary thyroid nodule (Acute) Sensorineural hearing loss (SNHL) of both ears (Acute) Pancreatic mass (Acute) Osteoporosis (Acute) Internal hemorrhoids (Acute) Generalized osteoarthritis of multiple sites (Acute) Generalized anxiety disorder (Acute) Gastroesophageal reflux disease (Acute) Diverticulosis (Acute) Common bile duct (CBD) obstruction (Acute) Cholelithiases (Acute) Arthritis of left hip Chronic sinusitis History of pancreatic cancer (Acute) Hx of renal cell cancer (Acute) r kidney Anxiety Depression Epigastric pain H/O gastroesophageal reflux (GERD) Hearing deficit Hyperglycemia Hypertension Osteoarthritis Skin cancer Exercise / Class Metabolic Activity IV < 2 Limit ADL/Bedbound Past Family History Family History Mother Hypertension Heart disease Past Surgical History Surgical History History of total hip arthroplasty April 2016 l hip History of ERCP History of herniorrhaphy Past Anesthesia History No Hx of Anesthesia Complications and No Family Hx of Anesthesia Complications History of PONV No Hx of PONV and No Hx of Motion Sickness Social History Smoking Status: Never smoker Hx Alcohol Use: No Hx Substance Use: No Physical Exam Vital Signs Last Vital Signs Temp 36.9 C 09/28/18 14:55 Pulse 91 H 09/28/18 14:55 Resp 24 09/28/18 14:55 BP 126/60 09/28/18 14:55 Pulse Ox 96 09/28/18 14:55 Testing Laboratory Results 09/28/18 07:59 09/28/18 07:59 PT 19.3 Seconds (9.0-12.0) H 09/28/18 07:59 INR 2.0 (0.9-1.1) H 09/28/18 07:59 APTT 74.3 Seconds (21.0-31.0) H* 09/28/18 07:59 09/28/18 09/28/18 11:31 06:04 POC Glucose 140 H 108 H Electrocardiogram Date: 09/26/18 Findings: + NSR @ (75) Normal sinus rhythm When compared with ECG of 24-MAR-2016 13:23, Nonspecific T wave abnormality now evident in Inferior leads T wave inversion now evident in Lateral leads Confirmed by Avelino Todd ([id number]) on 09/26/2018 8:17:58 PM Chest X-Ray Date: 09/26/18 XR chest 1V portable CLINICAL HISTORY: Chest Pain dyspnea COMPARISON STUDY: 03/24/2016 FINDINGS: Interval trace fluid both lung bases. No focal infiltrate. Central catheter in superior vena cava. IMPRESSION: Trace pleural effusion both lung bases. Otherwise negative study.
--- NOTE | 2018-09-28 15:48 | Hospitalist Progress Note ---
Date of Service September 28, 2018 Assessment & Plan (1) Acute saddle pulmonary embolism: - In setting of metastatic pancreatic cancer; noted on CT chest completed during staging scans as outpatient. - Doppler of bilat LE: acute RLE DVT involving popliteal vein with involvement of posterior tibial and peroneal veins; superficial thrombus within left posterior knee region. - Continue Heparin infusion (will hold for ERCP); convert to Xarelto once approved by GI post op. - Vascular surgery consulted; discussed placement of IVC filter due to high risk procedure in setting of VTE -- will not complete IVC filter placement as pt. is planning to transition to hospice at discharge following discussion with Dr. Christie. Family and patient were aware of high risk for procedure, agreeable to moving forward with ERCP. (2) Malignant neoplasm of pancreas: - Completed staging scans as outpatient. - Oncology consulted, plan to transition to hospice at discharge due to progression of disease. - Consulting palliative care for recs. (3) Elevated bilirubin: - Diffuse jaundice with elevated T. bili (15.7 this morning) - Possibly related to bile duct obstruction in setting of hepatic metastases -- has intra and extra hepatic biliary duct dilatation as well as pancreatic ductal dilatation on US. - Consulted GI, plan for ERCP this afternoon. - Continue Zosyn IV for empiric coverage of cholangitis -- has increased WBC on labs. - Monitor LFTs daily -- expect improvement in 24-48 hours post ERCP. (4) Prolonged INR: - INR was 2.0 -- likely related to liver mets. - No indication for Vit K reversal for procedure per GI. (5) Type 2 diabetes mellitus: - Hgb A1C was 9.2. - SSI coverage. (6) Renal mass: - 1.8 cm mass in lower pole of the left kidney -- ?renal cell carcinoma, has not been biopsied. - Transitioning to hospice at discharge. (7) Anemia: - In setting of recent chemo. - Monitor CBC daily. (8) Hypokalemia: - Replace as needed. (9) DVT prophylaxis: - Heparin drip (holding for procedure) Dispo: Med/surg; ERCP today. Palliative consulted, plan for discharge to hospice once arranged. Supervising Physician Co-Signing Physician Notes PA Supervision Note: I did not personally see or examine the patient today, but I verified all bingham points of BEV Watts's assessment and plan with the following exceptions/additions: None Subjective Pt. is doing well. She denies abd pain, especially in RUQ, N/V. Has chronic loss of appetite. Review of Systems Review of Systems: All systems reviewed & are unremarkable except as noted in HPI & below Constitutional: + anorexia; no fever, no chills, no fatigue and no weakness Respiratory: no cough, no dyspnea, no dyspnea on exertion and no wheezing Cardiovascular: no chest pain, no palpitations and no edema Gastrointestinal: no abdominal pain, no nausea, no vomiting, no constipation and no diarrhea/loose stools Genitourinary: no difficulty urinating Musculoskeletal: no back pain and no joint pain Integumentary: no non-healing lesions Physical Exam Physical Exam: General: Resting comfortably HEENT: NC/AT; PERRLA with EOMI; Scleral icterus Neck: Supple and nontender Cardiac: RRR Lungs: CTA bilaterally Abdomen: Mild distention; bowel normoactive X 4; Tender to light palpation over RUQ. Extremities: Warm. No edema present. Neuro: No focal weakness Skin: Diffuse jaundice, no improvement. Results & Data Vital Signs (Past 12 Hours) Vital Signs Temp Pulse Resp BP BP Pulse Ox 09/28/18 14:55 36.9 C 91 H 24 126/60 96 09/28/18 14:48 36.6 C 84 18 120/66 96 09/28/18 11:35 36.5 C 80 16 110/63 94 09/28/18 07:13 37 C 92 H 16 117/64 94 Laboratory Results 09/28/18 09/28/18 09/28/18 Range/Units 11:31 07:59 07:59 WBC (4.8-10.8) K/uL RBC (4.2-5.4) M/uL Hgb (12.0-16.0) g/dL Hct (37-47) % MCV (80-100) fL MCH (25-34) pg MCHC (32-36) g/dL RDW Std Deviation (36.4-46.3) fL RDW Coeff of Td (11.5-14.5) % Plt Count (130-400) K/uL MPV (7.4-10.4) fL Immature Gran % (Auto) % Neut % (Auto) % Lymph % (Auto) % [place] % (Auto) % Eos % (Auto) % Baso % (Auto) % Immature Gran # (Auto) (0.00-0.02) K/uL Neut # (Auto) (1.4-6.5) K/uL Lymph # (Auto) (1.2-3.4) K/uL [place] # (Auto) (0.11-0.59) K/uL Eos # (Auto) (0-0.5) K/uL Baso # (Auto) (0-0.2) K/uL PT 19.3 H (9.0-12.0) Seconds INR 2.0 H (0.9-1.1) APTT 74.3 H* (21.0-31.0) Seconds PTT Ratio 2.7 Sodium (136-145) mmol/L Potassium (3.5-5.1) mmol/L Chloride (98-107) mmol/L Carbon Dioxide (21-32) mmol/L Anion Gap (3-11) BUN (7-18) mg/dl Creatinine (0.6-1.2) mg/dl Est Cr Clr Drug Dosing ml/min Est GFR ( Amer) Est GFR (Non-Af Amer) BUN/Creatinine Ratio (10-20) Glucose (70-99) mg/dl POC Glucose 140 H (70-99) Calcium (8.5-10.1) mg/dl Total Bilirubin (0.2-1) mg/dl AST (15-37) U/L ALT (12-78) U/L Alkaline Phosphatase (45-117) U/L Total Protein (6.4-8.2) gm/dl Albumin (3.4-5.0) gm/dl Globulin (2.5-4.0) gm/dl Albumin/Globulin Ratio (0.9-2) 09/28/18 09/28/18 09/28/18 Range/Units 07:59 07:59 06:04 WBC 17.18 H (4.8-10.8) K/uL RBC 3.04 L (4.2-5.4) M/uL Hgb 9.6 L (12.0-16.0) g/dL Hct 28.8 L (37-47) % MCV 94.7 (80-100) fL MCH 31.6 (25-34) pg MCHC 33.3 (32-36) g/dL RDW Std Deviation 60.4 H (36.4-46.3) fL RDW Coeff of Td 17.9 H (11.5-14.5) % Plt Count 237 (130-400) K/uL MPV 9.6 (7.4-10.4) fL Immature Gran % (Auto) 1.2 % Neut % (Auto) 85.0 % Lymph % (Auto) 2.9 % [place] % (Auto) 10.5 % Eos % (Auto) 0.3 % Baso % (Auto) 0.1 % Immature Gran # (Auto) 0.21 H (0.00-0.02) K/uL Neut # (Auto) 14.61 H (1.4-6.5) K/uL Lymph # (Auto) 0.50 L (1.2-3.4) K/uL [place] # (Auto) 1.80 H (0.11-0.59) K/uL Eos # (Auto) 0.05 (0-0.5) K/uL Baso # (Auto) 0.01 (0-0.2) K/uL PT (9.0-12.0) Seconds INR (0.9-1.1) APTT (21.0-31.0) Seconds PTT Ratio Sodium 139 (136-145) mmol/L Potassium 3.8 (3.5-5.1) mmol/L Chloride 109 H (98-107) mmol/L Carbon Dioxide 23 (21-32) mmol/L Anion Gap 7.0 (3-11) BUN 11 (7-18) mg/dl Creatinine 0.63 (0.6-1.2) mg/dl Est Cr Clr Drug Dosing 67.1 ml/min Est GFR ( Amer) 101.7 Est GFR (Non-Af Amer) 87.7 BUN/Creatinine Ratio 17.0 (10-20) Glucose 109 H (70-99) mg/dl POC Glucose 108 H (70-99) Calcium 8.0 L (8.5-10.1) mg/dl Total Bilirubin 15.7 H (0.2-1) mg/dl AST 77 H (15-37) U/L ALT 60 (12-78) U/L Alkaline Phosphatase 656 H (45-117) U/L Total Protein 4.7 L (6.4-8.2) gm/dl Albumin 1.4 L (3.4-5.0) gm/dl Globulin 3.3 (2.5-4.0) gm/dl Albumin/Globulin Ratio 0.4 L (0.9-2) 09/28/18 09/27/18 09/27/18 Range/Units 00:33 20:31 17:31 WBC (4.8-10.8) K/uL RBC (4.2-5.4) M/uL Hgb (12.0-16.0) g/dL Hct (37-47) % MCV (80-100) fL MCH (25-34) pg MCHC (32-36) g/dL RDW Std Deviation (36.4-46.3) fL RDW Coeff of Td (11.5-14.5) % Plt Count (130-400) K/uL MPV (7.4-10.4) fL Immature Gran % (Auto) % Neut % (Auto) % Lymph % (Auto) % [place] % (Auto) % Eos % (Auto) % Baso % (Auto) % Immature Gran # (Auto) (0.00-0.02) K/uL Neut # (Auto) (1.4-6.5) K/uL Lymph # (Auto) (1.2-3.4) K/uL [place] # (Auto) (0.11-0.59) K/uL Eos # (Auto) (0-0.5) K/uL Baso # (Auto) (0-0.2) K/uL PT (9.0-12.0) Seconds INR (0.9-1.1) APTT 82.7 H* 70.8 H* (21.0-31.0) Seconds PTT Ratio 3.1 2.6 Sodium (136-145) mmol/L Potassium (3.5-5.1) mmol/L Chloride (98-107) mmol/L Carbon Dioxide (21-32) mmol/L Anion Gap (3-11) BUN (7-18) mg/dl Creatinine (0.6-1.2) mg/dl Est Cr Clr Drug Dosing ml/min Est GFR ( Amer) Est GFR (Non-Af Amer) BUN/Creatinine Ratio (10-20) Glucose (70-99) mg/dl POC Glucose 172 H (70-99) Calcium (8.5-10.1) mg/dl Total Bilirubin (0.2-1) mg/dl AST (15-37) U/L ALT (12-78) U/L Alkaline Phosphatase (45-117) U/L Total Protein (6.4-8.2) gm/dl Albumin (3.4-5.0) gm/dl Globulin (2.5-4.0) gm/dl Albumin/Globulin Ratio (0.9-2) // Range/Units 17:03 WBC (4.8-10.8) K/uL RBC (4.2-5.4) M/uL Hgb (12.0-16.0) g/dL Hct (37-47) % MCV (80-100) fL MCH (25-34) pg MCHC (32-36) g/dL RDW Std Deviation (36.4-46.3) fL RDW Coeff of Td (11.5-14.5) % Plt Count (130-400) K/uL MPV (7.4-10.4) fL Immature Gran % (Auto) % Neut % (Auto) % Lymph % (Auto) % [place] % (Auto) % Eos % (Auto) % Baso % (Auto) % Immature Gran # (Auto) (0.00-0.02) K/uL Neut # (Auto) (1.4-6.5) K/uL Lymph # (Auto) (1.2-3.4) K/uL [place] # (Auto) (0.11-0.59) K/uL Eos # (Auto) (0-0.5) K/uL Baso # (Auto) (0-0.2) K/uL PT (9.0-12.0) Seconds INR (0.9-1.1) APTT (21.0-31.0) Seconds PTT Ratio Sodium (136-145) mmol/L Potassium (3.5-5.1) mmol/L Chloride (98-107) mmol/L Carbon Dioxide (21-32) mmol/L Anion Gap (3-11) BUN (7-18) mg/dl Creatinine (0.6-1.2) mg/dl Est Cr Clr Drug Dosing ml/min Est GFR ( Amer) Est GFR (Non-Af Amer) BUN/Creatinine Ratio (10-20) Glucose (70-99) mg/dl POC Glucose 107 H (70-99) Calcium (8.5-10.1) mg/dl Total Bilirubin (0.2-1) mg/dl AST (15-37) U/L ALT (12-78) U/L Alkaline Phosphatase (45-117) U/L Total Protein (6.4-8.2) gm/dl Albumin (3.4-5.0) gm/dl Globulin (2.5-4.0) gm/dl Albumin/Globulin Ratio (0.9-2) PG Care Time/CCT Total # of Minutes Spent Total Time Spent with Patient: Total time spent is greater than 50% in coordination of care (as documented) at patient's floor/unit and/or counseling patient: (1) Acute saddle pulmonary embolism Acute cor pulmonale presence: without acute cor pulmonale Qualified Code(s): I26.92 - Saddle embolus of pulmonary artery without acute cor pulmonale
--- NOTE | 2018-09-28 15:52 | Consultation Report ---
DATE OF CONSULTATION: 09/28/2018 MEDICAL ONCOLOGY CONSULTATION REASON FOR CONSULTATION: Recent diagnosis of saddle pulmonary embolism in a 73-year-old female patient with end-stage metastatic pancreatic cancer. HISTORY OF PRESENT ILLNESS: Nathalie Montaño is a very pleasant 73-year-old female with a history of metastatic pancreatic cancer, currently under my care, has been receiving salvage abraxane/gemzar, which was last administered on September 14. The patient had noticed increased jaundice and had contacted my office. A surveillance CT scan of chest, abdomen and pelvis was performed, which surprisingly revealed a saddle pulmonary emboli. Nathalie denies any preceding chest pain or shortness of breath which is nothing short of amazing. The patient had received a FOLFIRINOX up until June 2018 when disease progression was seen on scan. She was subsequently switched to salvage Abraxane and gemcitabine, and again her last dose was administered on 09/14. She had admitted at that time to increased abdominal fullness and pressure. Abdominal ultrasound was performed showing a trace pelvic ascites. Upon admission, a CTA had confirmed saddle pulmonary emboli and CT of the abdomen and pelvis revealed disease progression, specifically hepatic metastatic disease. The patient is profoundly jaundiced at bedside. Her total bilirubin measures 13.4. She has experienced some transient periumbilical pain, but otherwise in no acute distress. Primary service has requested guidance regarding therapeutics moving forward. According to the managing hospitalist, plans are underway for receive biliary stent and perhaps a Kody filter. She is currently on heparin anticoagulation. PAST MEDICAL HISTORY: Positive for metastatic pancreatic cancer. PAST SURGICAL HISTORY: Status post total hip arthroplasty in April 2016. MEDICATIONS: Prior to admission include citalopram 20 mg p.o. daily, potassium chloride 10 mEq p.o. daily, cholecalciferol 1000 units p.o. daily, insulin NPH per instructions, Zofran 8 mg p.o. t.i.d. p.r.n., Colace 100 mg p.o. b.i.d., metoclopramide 10 mg p.o. t.i.d., Protonix 40 mg p.o. daily, and MiraLax 17 grams p.o. b.i.d. ALLERGIES: No known drug allergies. SOCIAL HISTORY: The patient has been living with her daughter. She is a nonsmoker, nondrinker, non-illicit drug user. FAMILY HISTORY: Positive for hypertension, heart disease. REVIEW OF SYSTEMS: GENERAL: Positive for anorexia, cachexia and general clinical decline. She is profoundly jaundiced. Negative for fevers, chills, or sweats. SKIN: Again, positive for jaundice. No overt rashes otherwise. HEENT: She denies headaches, lightheadedness or dizziness. No visual or hearing deficits. No sinus symptoms, sore throat or dysphagia. LYMPH: No history of lymphoproliferative disease. CARDIAC: No history of coronary artery disease, no current angina or palpitations. PULMONARY: Negative for COPD, positive for recently diagnosed pulmonary embolism. She was not dyspneic on exertion and short of breath. No cough or hemoptysis reported. GASTROINTESTINAL: Positive for occasional constipation, periumbilical abdominal pain. She is not nauseated at present. GENITOURINARY: Noticed orange-colored urine. Otherwise, no hematuria, dysuria, urinary incontinence. PSYCHIATRIC: Positive for anxiety. ENDOCRINE: Positive for diabetes mellitus, negative for thyroid disease. NEUROLOGIC: Negative for seizure, stroke, or migraine headache. HEMATOLOGIC: Positive for cytopenias, attributable to treatment. PHYSICAL EXAMINATION: GENERAL: A very cachectic, jaundiced-appearing 73-year-old female, awake, alert and appropriate, in no acute distress. VITAL SIGNS: Temperature 37, pulse 72, respiratory rate 16, blood pressure 117/64. SKIN: Profoundly jaundiced. No rashes or lesions otherwise. HEENT: Atraumatic, normocephalic. EYES: PERRLA, EOMI. Sclerae markedly icteric. Nares patent without rhinorrhea or discharge. Throat is clear. Tongue is midline. Mucous membranes are moist. NECK: Supple without JVD or thyromegaly. HEART: Regular rate and rhythm. No clicks, rubs, murmurs or gallops. LUNGS: Clear to auscultation bilaterally. ABDOMEN: Soft, some mild periumbilical tenderness. Bowel sounds hypoactive. No rigidity or guarding. EXTREMITIES: Musculoskeletal strength and pulses are equal in all 4 quadrants. No clubbing, cyanosis or edema otherwise. NEUROLOGICAL: The patient is awake, alert and oriented x3. Cranial nerves are intact. No gross motor or sensory deficits are noted. LABORATORY DATA: These are from yesterday, WBC count 10,770, hemoglobin 8.8, platelet count 198,000. Sodium 136, potassium 3.5, chloride 103, carbon dioxide 25, BUN 10, creatinine 0.56. Total bilirubin 13.4, AST 83, alkaline phosphatase 614, albumin 1.4. RADIOGRAPHIC DATA: CT scan of the chest done on admission, saddle pulmonary embolus within the right and left main pulmonary arteries. There is no evidence of heart strain. Small bilateral pleural effusions with ascites which has progressed slight progression and mild enlarged mediastinal lymph nodes, increased size of hepatic metastatic lesions. IMPRESSION: 1. Saddle pulmonary embolus. 2. Progressing metastatic pancreatic cancer. 3. Severe hypoalbuminemia. 4. Hyperbilirubinemia. 5. Failing performance status. PLAN: I had been asked to render an opinion on Nathalie's prognosis moving forward. The patient originally was diagnosed with metastatic pancreatic cancer in 2018, treated initially with FOLFIRINOX, which unfortunately resulted in disease progression as documented in June of this year. She was then placed on Abraxane and gemcitabine, last received about 2 weeks ago. 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 Engaged in a lengthy discussion with Nathalie at bedside today. She knows her disease is terminal and has agreed to suspend all further therapy. I strongly encouraged her to entertain outpatient hospice, which she would like to discuss with family members moving forward, in regards to management while in house. Agree with proceeding with biliary stent to alleviate her biliary obstruction. However, I am little less clear on the wisdom of proceeding with a [place] filter when saddle embolism has already been established. Discussed this point with managing hospitalist. She will engage anesthesia to see if this is an absolute requirement for them to use conscious sedation moving forward for biliary stent. The patient has agreed to no code status. She seems to be very comfortable with her decision to receive palliation and suspect her survival is now measured in weeks to maybe a month at most. Thank you very much for allowing me to participate in her care. If you have questions or concerns, contact me by phone. I will continue to follow her periodically during Nathalie's stay. [facility]
--- NOTE | 2018-09-28 15:57 | History & Physical Bridge Note ---
Date of Service September 28, 2018 History & Physical Bridge Note I have examined the patient, reviewed the History & Physical and in the interval since the performance of the History & Physical I have noted the following changes of clinical significance: no changes noted ERCP today for CBD stent exchange. I explained to the patient regarding the risk, benefit and alternatives and she agreed. Explained high risk procedure due to PE.
[2018-09-28] MEDS ORDERED: fentaNYL citrate 100 MCG/2 ML VIAL IV PRN (16:53)
[2018-09-28] MEDS ORDERED: ONDANSETRON INJ 2 MG/ML 2 ML VIAL IV PRN (16:53)
[2018-09-28] MEDS ORDERED: ATROPINE SULFATE 0.1 MG/ML 10ML SYR IV PRN (16:53)
[2018-09-28] MEDS ORDERED: ePHEDrine sulfate 50 MG/ML AMP IV PRN (16:53)
[2018-09-28] MEDS: PIPERACILLIN/TAZOBACTAM 3.375 GM in DEXTROSE 5% 100 ML IV SCH (17:10)
--- NOTE | 2018-09-28 18:51 | Operative Report ---
Post Operative Report Pre & Post Diagnosis Operation Date: 09/28/18 07:00 Pre-Op Diagnosis: Jaundice Post-Op Diagnosis: Jaundice Procedure Operation Date: 09/28/18 07:00 Actual Procedures p Endoscopic Retrograde Cholangiopancreatogram; Esophagogastroduodenoscopy with duodenal stent(Not Applicable) - Shar Hyatt MD Surgeon Shar Hyatt MD Building Performance Specialist None Estimated Blood Loss 0 Findings See Below (Near complete duodenal obstruction with extensive tumor infiltration, Biliary stent seen, duodenal stent placed. Suspect tumor fistulization and eroding into nearby structures. Biliary tree cannot be stented due to tumor invasion.) Specimens None Description of Procedure ERCP I attest to the content of the Intraoperative Record and any orders documented therein. Any exceptions are noted below.
--- NOTE | 2018-09-28 19:31 | Anesthesiology Progress Note ---
Date of Service September 28, 2018 Anesthesia Post Procedure Vital Signs Vital Signs: Temp Pulse Pulse Pulse Resp BP BP 09/28/18 19:20 37.1 C 87 16 128/67 09/28/18 19:10 86 18 128/68 09/28/18 19:00 85 18 120/64 09/28/18 18:54 36.4 C L 85 19 125/67 09/28/18 14:55 36.9 C 91 H 24 126/60 09/28/18 14:48 36.6 C 84 18 120/66 09/28/18 11:35 36.5 C 80 16 110/63 09/28/18 07:13 37 C 92 H 16 117/64 09/28/18 03:29 37.3 C 91 H 18 123/67 09/27/18 23:00 37.1 C 97 H 18 112/66 Pulse Ox 09/28/18 19:20 97 09/28/18 19:10 99 09/28/18 19:00 99 09/28/18 18:54 99 09/28/18 14:55 96 09/28/18 14:48 96 09/28/18 11:35 94 09/28/18 07:13 94 09/28/18 03:29 95 09/27/18 23:00 94 Pain Intensity Abdomen: Pain Intensity: 2 Transfer of Care Handoff Completed per policy Notes Mental Status: alert / awake / arousable and participated in evaluation Patient Amnestic to Procedure: Yes Nausea / Vomiting: adequately controlled Pain: adequately controlled Airway Patency, RR, SpO2: stable & adequate BP & HR: stable & adequate Hydration State: stable & adequate Anesthetic Complications: no major complications apparent and Pt Satisfied with anesthetic care
--- NOTE | 2018-09-28 19:36 | GI REPORT ---
Patient Name: Nathalie Montaño Procedure Date: 09/28/2018 4:39 PM Date of : 1945 Admit Type: Inpatient Age: 73 Gender: Female Attending MD: Shar Hyatt MD Procedure: ERCP Providers: Shar Hyatt MD Referring MD: Mirta De La Torre, Yusra Pacheco Md Indications: Jaundice, Malignant tumor of the head of pancreas, Stent change Medicines: General Anesthesia Complications: No immediate complications. Estimated Blood Loss: Estimated blood loss: none. Procedure: Pre-Anesthesia Assessment: - Prior to the procedure, a History and Physical was performed, and patient medications and allergies were reviewed. The patient is competent. The risks and benefits of the procedure and the sedation options and risks were discussed with the patient. All questions were answered and informed consent was obtained. Patient identification and proposed procedure were verified by the physician and the nurse in the procedure room. Mental Status Examination: alert and oriented. Airway Examination: normal oropharyngeal airway and neck mobility. Respiratory Examination: clear to auscultation. CV Examination: normal. ASA Grade Assessment: IV - A patient with severe systemic disease that is a constant threat to life. After reviewing the risks and benefits, the patient was deemed in satisfactory condition to undergo the procedure. The anesthesia plan was to use general anesthesia. Immediately prior to administration of medications, the patient was re-assessed for adequacy to receive sedatives. The heart rate, respiratory rate, oxygen saturations, blood pressure, adequacy of pulmonary ventilation, and response to care were monitored throughout the procedure. The physical status of the patient was re-assessed after the procedure. After obtaining informed consent, the scope was passed under direct vision. Throughout the procedure, the patient's blood pressure, pulse, and oxygen saturations were monitored continuously. The SCOPE was introduced through the mouth, with the intention of advancing to the bile ducts. The scope was advanced to the duodenum before the procedure was aborted. Medications were given. The ERCP was accomplished without difficulty. The patient tolerated the procedure well. Findings: A biliary stent was visible on the clinical account liaison film. The esophagus was successfully intubated under direct vision. The scope was advanced to the duodenal bulb but could not be advanced to the 2nd portion due to near complete luminal stenosis due to infiltrative pancreatic malignancy. The scope was changed to a forward viewing endoscope, a 0.035 guidewire was placed into the stricture, contrast injected, a long duodenal stenosis seen. In view of her terminal malignancy and plan for hospice care, a palliative metal duodenal stent was placed ( a 22 mm x 9 cm Evolution controlled-release uncovered stent under fluoroscopic guidance, I personally interpretted the fluoroscopy images). The duodenoscope was then passed into the stricture to locate the major papilla after balloon dilation of the stent to 15 mm. An infiltrative, ulcerated mass seen in the area of the major papilla encasing the prior biliary stent, this appeared very deep and already eroded the duodenal wall. In view of her leukocytosis today I suspect it may have already perforated the lumen or fistulized. Given her advanced tumor, further attempts for biliary decompression or stent exchange seems to be futile. Impression: - Advanced stage, deeply eroding and infiltrative pancreatic malignancy causing duodenal stenosis, a Palliative Metal duodenal stent was placed. The mass had encased the entire major papilla and stent exhange at this stage is not feasable. - One plastic stent from the biliary tree was seen in the major papilla. Recommendation: - After discussion with her family, the patient wishes to go home on hospice care and does not want any further intervension. - [facility] patient to [facility] for [facility] care. - NPO today. - Clear liquid diet tomorrow then advance if tolerating. Shar Hyatt MD 09/28/2018 7:36:09 PM This report has been signed electronically. Note Initiated On: 09/28/2018 4:39 PM Number of Addenda: 0 I attest to the content of the Intraoperative Record and orders documented therein, exceptions below {[id number]}
[2018-09-28] MEDS ORDERED: Nursing to Pharmacy Communication ONE ×2 (19:57→22:14)
[2018-09-28] MEDS: ONDANSETRON INJ 2 MG/ML 2 ML VIAL IV PRN (20:05)
--- NOTE | 2018-09-28 20:36 | Fluoroscopy Report ---
INTRAOPERATIVE RADIOGRAPHS CLINICAL HISTORY: ERCP. Duct exploration. Fluoroscopy time: 4:01 minutes. FINDINGS: 10 spot fluoroscopic views of the right upper quadrant from a duct exploration are presente d. Correlation is made with abdominal CT dated 09/26/2018. Initial image shows the endoscope projectin g over the stomach and the common bile duct stent in place. There is opacification of the duodenum. T he next several images show a stent being deployed, likely within the duodenum. There is no significa nt opacification of the biliary tree on this examination. IMPRESSION: ERCP images show a presumed duodenal stent being placed. Correlation with the operative r eport will be required. Electronically signed by: Gato Cano M.D. 09/28/2018 8:35 PM
[2018-09-29] MEDS: PIPERACILLIN/TAZOBACTAM 3.375 GM in DEXTROSE 5% 100 ML IV SCH ×3 (00:59→15:52)
[2018-09-29 02:25] LABS: Hematocrit (blood only) 28.2 % (37-47); Hemoglobin 9.2 g/dL (12.0-16.0); Mean Corpuscular Hgb Conc 32.6 g/dL (32-36); Mean Platelet Volume 9.5 fL (7.4-10.4); Platelet Count 221 K/uL (130-400); RDW Coefficient of Variation 18.2 % (11.5-14.5); RDW Standard Deviation 61.3 fL (36.4-46.3)
[2018-09-29 02:44] LABS: Partial Thromboplastin Ratio 2.5
[2018-09-29 02:59] LABS: Albumin Globulin Ratio 0.4 (0.9-2); Albumin Level 1.3 gm/dl (3.4-5.0); BUN Creatinine Ratio 16.1 (10-20); Bilirubin,Total 14.9 mg/dl (0.2-1); Calcium 7.7 mg/dl (8.5-10.1); Creatinine Clr Calc Pharmacy 57.9 ml/min; Est GFR (African American) 93.4; Est GFR (Non-African American) 80.6; Globulin 3.1 gm/dl (2.5-4.0); Potassium 4.2 mmol/L (3.5-5.1); Total Protein 4.4 gm/dl (6.4-8.2)
[2018-09-29 03:05] LABS: Partial Thromboplastin Time 67.1 Seconds (21.0-31.0)
[2018-09-29 03:19] LABS: Basophils # (auto) 0.02 K/uL (0-0.2); Basophils % (auto) 0.1 %; Immature Granulocytes # (auto) 0.33 K/uL (0.00-0.02); Immature Granulocytes % (auto) 1.9 %; Lymphocytes # (auto) 0.65 K/uL (1.2-3.4); Lymphocytes % (auto) 3.8 %; Monocytes # (auto) 1.43 K/uL (0.11-0.59); Monocytes % (auto) 8.4 %; Neutrophils # (auto) 14.67 K/uL (1.4-6.5); Neutrophils % (auto) 85.8 %; Poikilocytosis Present; Spherocytes Occasional; Target Cells 1+
[2018-09-29] MEDS: POTASSIUM CHLORIDE 10 MEQ in SODIUM CHLORIDE 0.9% 1000ML 1,000 ML IV SCH ×2 (05:19→14:36)
[2018-09-29] MEDS: PANTOprazole 40 MG TAB PO SCH (07:58)
[2018-09-29] MEDS: CHOLECALCIFEROL 1,000 UNITS TAB PO SCH (07:58)
[2018-09-29] MEDS: CITALOPRAM 20 MG TAB PO SCH (07:58)
[2018-09-29] MEDS: POLYETHYLENE (MIRALAX) 17 GM PACK PO SCH ×2 (07:58→21:00)
[2018-09-29] MEDS: DOCUSATE SODIUM 100 MG CAP PO SCH ×2 (07:58→21:00)
[2018-09-29] MEDS: POTASSIUM CHLORIDE 10 MEQ TABCR PO SCH (07:59)
[2018-09-29] MEDS: INSULIN ASPART 100 UNITS/ML 3 ML PEN SC SCH ×4 (08:23→21:00)
[2018-09-29] MEDS: ONDANSETRON INJ 2 MG/ML 2 ML VIAL IV PRN (08:31)
[2018-09-29 10:46] LABS: Partial Thromboplastin Ratio 2.1
[2018-09-29 10:53] LABS: Partial Thromboplastin Time 56.7 Seconds (21.0-31.0)
[2018-09-29] MEDS ORDERED: OXYCODONE HCL SOLN 5 MG/5 ML UDC PO PRN (11:22)
[2018-09-29] MEDS ORDERED: PROCHLORPERAZINE 10 MG in SYRINGE 8 ML IV PRN (11:25)
--- NOTE | 2018-09-29 14:29 | Hospitalist Progress Note ---
Date of Service September 29, 2018 Assessment & Plan (1) Acute saddle pulmonary embolism: - In setting of metastatic pancreatic cancer; noted on CT chest completed during staging scans as outpatient. - Doppler of bilat LE: acute RLE DVT involving popliteal vein with involvement of posterior tibial and peroneal veins; superficial thrombus within left posterior knee region. - Converted Heparin infusion to Xarelto 15 mg BID on 09/28/18. - Vascular surgery consulted; discussed placement of IVC filter due to high risk procedure in setting of VTE -- did not complete IVC filter placement due to plan to transition to hospice at discharge. (2) Malignant neoplasm of pancreas: - Completed staging scans as outpatient. - Oncology consulted, will transition to hospice at discharge due to progression of disease. - Consulted palliative, appreciate input. - Roxicodone 2.5 mg q6hr prn pain. - Zofran and Compazine prn N/V -- concern that pt. will not be able to tolerate PO intake at home due to extensive tumor invasion of the GI tract. (3) Elevated bilirubin: - Diffuse jaundice with elevated T. bili. - Intra and extra hepatic biliary duct dilatation as well as pancreatic ductal dilatation on US. - ERCP and EGD showed near complete duodenal obstruction with extensive tumor infiltration -- duodenal stent was placed. Could not stent biliary tree due to tumor invasion. - Consulted GI, procedure as noted above. - Continue Zosyn IV for coverage of cholangitis -- would benefit from PO abx at discharge for short course. - Monitor LFTs daily as inpatient -- pt. will likely not have significant improv ement in T. bili. (4) Prolonged INR: - INR prolonged -- likely related to liver mets. - No indication for Vit K reversal. (5) Type 2 diabetes mellitus: - Hgb A1C was 9.2. - SSI coverage. (6) Renal mass: - 1.8 cm mass in lower pole of the left kidney -- ?renal cell carcinoma, has not been biopsied. - Transitioning to hospice at discharge. (7) Anemia: - In setting of recent chemo. - Monitor CBC daily. (8) Hypokalemia: - Replace as needed. (9) DVT prophylaxis: - Xarelto BID. Dispo: Med/surg; discharge to hospice -- likely on 09/30/18. Supervising Physician Co-Signing Physician Notes PA Supervision Note: I did not personally see or examine the patient today, but I verified all bingham points of BEV Watts's assessment and plan with the following exceptions/additions: None Subjective Pt. had nausea/vomiting this morning after breakfast -- may be related to aggressive tumor invasion. Will give anti-emetics and monitor for improvement. Has mild pain in abdomen -- will order home Roxicodone 2.5 mg q6hr prn. Plan for discharge to hospice likely tomorrow, palliative following. Review of Systems Review of Systems: All systems reviewed & are unremarkable except as noted in HPI & below Constitutional: + fatigue, + weakness and + anorexia; no fever and no chills Respiratory: no cough, no dyspnea and no dyspnea on exertion Cardiovascular: no chest pain, no palpitations, no lightheadedness and no edema Gastrointestinal: + abdominal pain, + nausea and + vomiting; no constipation and no diarrhea/loose stools Genitourinary: no difficulty urinating Musculoskeletal: no back pain and no joint pain Integumentary: no non-healing lesions Neurologic: + generalized weakness Allergy / Immunological: no rash Physical Exam Physical Exam: General: Resting comfortably HEENT: NC/AT; PERRLA with EOMI; Scleral icterus Neck: Supple and nontender Cardiac: RRR Lungs: CTA bilaterally Abdomen: Bowel normoactive X 4; Tender to palpation over RUQ. Extremities: Warm. No edema present. Neuro: No focal weakness Skin: Diffuse jaundice. Results & Data Vital Signs (Past 12 Hours) Vital Signs Temp Pulse Pulse Resp BP Pulse Ox 09/29/18 11:14 36.4 C L 86 18 124/74 93 09/29/18 07:07 36.4 C L 71 18 106/62 96 09/29/18 03:00 36.4 C L 77 18 112/66 93 Laboratory Results 09/29/18 09/29/18 09/29/18 Range/Units 11:50 10:15 07:37 WBC (4.8-10.8) K/uL RBC (4.2-5.4) M/uL Hgb (12.0-16.0) g/dL Hct (37-47) % MCV (80-100) fL MCH (25-34) pg MCHC (32-36) g/dL RDW Std Deviation (36.4-46.3) fL RDW Coeff of Td (11.5-14.5) % Plt Count (130-400) K/uL MPV (7.4-10.4) fL Immature Gran % (Auto) % Neut % (Auto) % Lymph % (Auto) % [place] % (Auto) % Eos % (Auto) % Baso % (Auto) % Immature Gran # (Auto) (0.00-0.02) K/uL Neut # (Auto) (1.4-6.5) K/uL Lymph # (Auto) (1.2-3.4) K/uL [place] # (Auto) (0.11-0.59) K/uL Eos # (Auto) (0-0.5) K/uL Baso # (Auto) (0-0.2) K/uL Poikilocytosis Spherocytes Target Cells APTT 56.7 H* (21.0-31.0) Seconds PTT Ratio 2.1 Sodium (136-145) mmol/L Potassium (3.5-5.1) mmol/L Chloride (98-107) mmol/L Carbon Dioxide (21-32) mmol/L Anion Gap (3-11) BUN (7-18) mg/dl Creatinine (0.6-1.2) mg/dl Est Cr Clr Drug Dosing ml/min Est GFR ( Amer) Est GFR (Non-Af Amer) BUN/Creatinine Ratio (10-20) Glucose (70-99) mg/dl POC Glucose 162 H 135 H (70-99) Calcium (8.5-10.1) mg/dl Total Bilirubin (0.2-1) mg/dl AST (15-37) U/L ALT (12-78) U/L Alkaline Phosphatase (45-117) U/L Total Protein (6.4-8.2) gm/dl Albumin (3.4-5.0) gm/dl Globulin (2.5-4.0) gm/dl Albumin/Globulin Ratio (0.9-2) 09/29/18 09/29/18 09/29/18 Range/Units 02:12 02:12 02:12 WBC 17.10 H (4.8-10.8) K/uL RBC 3.00 L (4.2-5.4) M/uL Hgb 9.2 L (12.0-16.0) g/dL Hct 28.2 L (37-47) % MCV 94.0 (80-100) fL MCH 30.7 (25-34) pg MCHC 32.6 (32-36) g/dL RDW Std Deviation 61.3 H (36.4-46.3) fL RDW Coeff of Td 18.2 H (11.5-14.5) % Plt Count 221 (130-400) K/uL MPV 9.5 (7.4-10.4) fL Immature Gran % (Auto) 1.9 % Neut % (Auto) 85.8 % Lymph % (Auto) 3.8 % [place] % (Auto) 8.4 % Eos % (Auto) 0.0 % Baso % (Auto) 0.1 % Immature Gran # (Auto) 0.33 H (0.00-0.02) K/uL Neut # (Auto) 14.67 H (1.4-6.5) K/uL Lymph # (Auto) 0.65 L (1.2-3.4) K/uL [place] # (Auto) 1.43 H (0.11-0.59) K/uL Eos # (Auto) 0.00 (0-0.5) K/uL Baso # (Auto) 0.02 (0-0.2) K/uL Poikilocytosis Present Spherocytes Occasional Target Cells 1+ APTT 67.1 H* (21.0-31.0) Seconds PTT Ratio 2.5 Sodium 139 (136-145) mmol/L Potassium 4.2 (3.5-5.1) mmol/L Chloride 108 H (98-107) mmol/L Carbon Dioxide 27 (21-32) mmol/L Anion Gap 4.0 (3-11) BUN 12 (7-18) mg/dl Creatinine 0.73 (0.6-1.2) mg/dl Est Cr Clr Drug Dosing 57.9 ml/min Est GFR ( Amer) 93.4 Est GFR (Non-Af Amer) 80.6 BUN/Creatinine Ratio 16.1 (10-20) Glucose 134 H (70-99) mg/dl POC Glucose (70-99) Calcium 7.7 L (8.5-10.1) mg/dl Total Bilirubin 14.9 H (0.2-1) mg/dl AST 68 H (15-37) U/L ALT 53 (12-78) U/L Alkaline Phosphatase 584 H (45-117) U/L Total Protein 4.4 L (6.4-8.2) gm/dl Albumin 1.3 L (3.4-5.0) gm/dl Globulin 3.1 (2.5-4.0) gm/dl Albumin/Globulin Ratio 0.4 L (0.9-2) 09/28/18 09/28/18 Range/Units 20:35 19:11 WBC (4.8-10.8) K/uL RBC (4.2-5.4) M/uL Hgb (12.0-16.0) g/dL Hct (37-47) % MCV (80-100) fL MCH (25-34) pg MCHC (32-36) g/dL RDW Std Deviation (36.4-46.3) fL RDW Coeff of Td (11.5-14.5) % Plt Count (130-400) K/uL MPV (7.4-10.4) fL Immature Gran % (Auto) % Neut % (Auto) % Lymph % (Auto) % [place] % (Auto) % Eos % (Auto) % Baso % (Auto) % Immature Gran # (Auto) (0.00-0.02) K/uL Neut # (Auto) (1.4-6.5) K/uL Lymph # (Auto) (1.2-3.4) K/uL [place] # (Auto) (0.11-0.59) K/uL Eos # (Auto) (0-0.5) K/uL Baso # (Auto) (0-0.2) K/uL Poikilocytosis Spherocytes Target Cells APTT (21.0-31.0) Seconds PTT Ratio Sodium (136-145) mmol/L Potassium (3.5-5.1) mmol/L Chloride (98-107) mmol/L Carbon Dioxide (21-32) mmol/L Anion Gap (3-11) BUN (7-18) mg/dl Creatinine (0.6-1.2) mg/dl Est Cr Clr Drug Dosing ml/min Est GFR ( Amer) Est GFR (Non-Af Amer) BUN/Creatinine Ratio (10-20) Glucose (70-99) mg/dl POC Glucose 139 H 137 H (70-99) Calcium (8.5-10.1) mg/dl Total Bilirubin (0.2-1) mg/dl AST (15-37) U/L ALT (12-78) U/L Alkaline Phosphatase (45-117) U/L Total Protein (6.4-8.2) gm/dl Albumin (3.4-5.0) gm/dl Globulin (2.5-4.0) gm/dl Albumin/Globulin Ratio (0.9-2) PG Care Time/CCT Total # of Minutes Spent Total Time Spent with Patient: Total time spent is greater than 50% in coordination of care (as documented) at patient's floor/unit and/or counseling patient: (1) Acute saddle pulmonary embolism Acute cor pulmonale presence: without acute cor pulmonale Qualified Code(s): I26.92 - Saddle embolus of pulmonary artery without acute cor pulmonale
--- NOTE | 2018-09-29 14:54 | Palliative Care Consultation ---
Date of Consultation September 29, 2018 Assessment & Plan (1) Palliative care encounter: Patient is a 73-year-old female with stage IV pancreatic cancer diagnosed in 2018. Patient is followed by Dr. Jackson. Patient had been on chemo-had disease progression. Patient was then started on salvage chemo-her last chemo was on 09/14. Patient had surveillance chest abdomen and pelvis CT which showed disease progression as well as saddle PEs. Patient was sent to the emergency room for abnormal labs and findings of PE on CT scan. Patient was also noted to have a 1.8 cm renal mass on abdominal CT. Patient had noticed increased jaundice several days prior to admission. Patient's met past medical history is significant for diabetes, GERD, OA and gallstones. On admission patient's total bili was 14.4, hemoglobin 9.6. Patient underwent ERCP with stent placement on 09/28. After discussions with Dr. Jackson-patient and family have opted for returning home under hospice care. Patient seen and examined-patient's daughter and granddaughter at bedside. Reviewed with patient and family the services that hospice can provide including DME. Patient with poor appetite, increased abdominal pain and discomfort with eating. Discussed ways to enjoy taste in flavors of her favorite foods without having to stress any of her GI tract. Answered all questions from patient and family as well as addressing their concerns. -Stage IV metastatic pancreatic cancer-diagnosed in 2017. Patient with disease progression on chemo and also on salvage chemo-last chemo on 09/14. No further chemotherapy planned-plan is for discharge home under hospice care. -Acute saddle PE-patient currently on a heparin drip, started on Xarelto. Patient without shortness of breath, no O2 requirement -Renal mass-seen on CT scan-plan is for home with hospice care -Common bile duct obstruction-status post ERCP with stent placement -Increase bilirubin-status post ERCP with stent placement-expect bilirubin to trend down -Diabetes-discussed at length with patient and family management of diabetes and a hospice patient-allowing hyperglycemia. Patient denies having symptoms of hypo-or hyper glycemia. (2) Malignant neoplasm of pancreas: (3) Acute saddle pulmonary embolism: Acute cor pulmonale presence: without acute cor pulmonale Qualified Code(s): I26.92 - Saddle embolus of pulmonary artery without acute cor pulmonale (4) Renal mass: (5) Common bile duct (CBD) obstruction: (6) Elevated bilirubin: (7) Type 2 diabetes mellitus: History of Present Illness Reason for Consultation: Establish goals of care, patient's current psychosis status is DNR Requesting Physician: Anna Lynne PA-C Attending Physician: Yusra Pacheco MD History of Present Illness Patient is a 73-year-old female with stage IV pancreatic cancer diagnosed in 2018. Patient is followed by Dr. Jackson. Patient had been on chemo-had disease progression. Patient was then started on salvage chemo-her last chemo was on 09/14. Patient had surveillance chest abdomen and pelvis CT which showed disease progression as well as saddle PEs. Patient was sent to the emergency room for abnormal labs and findings of PE on CT scan. Patient was also noted to have a 1.8 cm renal mass on abdominal CT. Patient had noticed increased jaundice several days prior to admission. Patient's met past medical history is significant for diabetes, GERD, OA and gallstones. On admission patient's total bili was 14.4, hemoglobin 9.6. Patient underwent ERCP with stent placement on 09/28. After discussions with Dr. Jackson-patient and family have opted for returning home under hospice care. Patient seen and examined-patient's daughter and granddaughter at bedside. Reviewed with patient and family the services that hospice can provide including DME. Patient with poor appetite, increased abdominal pain and discomfort with eating. Discussed ways to enjoy taste in flavors of her favorite foods without having to stress any of her GI tract. Patient required 1 as needed oxycodone at 2.5 mg for discomfort this a.m. Answered all questions from patient and family as well as addressing their concerns. Allergies Allergy/AdvReac Type Severity Reaction Status Date / Time No Known Drug Allergies Allergy Verified 09/26/18 15:27 Home Medications Home Medications Medication Instructions Recorded Confirmed Type citalopram 20 mg PO QAM 02/10/18 09/26/18 History potassium chloride [Klor-Con M10] 10 meq PO QAM 02/10/18 09/26/18 History blood sugar diagnostic strips #10 ea 08/17/18 09/26/18 History cholecalciferol (vitamin D3) 1,000 1,000 units PO QAM cap 08/17/18 09/26/18 History unit capsule flash glucose scanning reader #1 ea 08/17/18 09/26/18 History flash glucose sensor kit #1 ea 08/17/18 09/26/18 History insulin NPH isophane U-100 human See Rx Instructions .ROUTE .COMPLEX 08/17/18 09/26/18 History 100 unit/mL (3 mL) subcutaneous pen lancets 33 gauge #100 ea 08/17/18 09/26/18 History ondansetron HCl 8 mg tablet 8 mg PO TID PRN 08/17/18 09/26/18 History pen needle, diabetic 32 gauge x #10 ea 08/17/18 09/26/18 History 5/32" docusate sodium [Colace] 100 mg PO BID 09/26/18 09/26/18 History metoclopramide HCl 10 mg PO TIDM 09/26/18 09/26/18 History pantoprazole 40 mg PO QAM 09/26/18 09/26/18 History polyethylene glycol 3350 [Miralax] 17 g PO BID 09/26/18 09/26/18 History Patient History Medical History Type 2 diabetes mellitus (Chronic) Hypokalemia (Acute) Acute saddle pulmonary embolism (Acute) Diabetes mellitus type II, uncontrolled (Chronic) Malignant neoplasm of pancreas (Chronic) Umbilical hernia (Acute) Solitary thyroid nodule (Acute) Sensorineural hearing loss (SNHL) of both ears (Acute) Pancreatic mass (Acute) Osteoporosis (Acute) Internal hemorrhoids (Acute) Generalized osteoarthritis of multiple sites (Acute) Generalized anxiety disorder (Acute) Gastroesophageal reflux disease (Acute) Diverticulosis (Acute) Common bile duct (CBD) obstruction (Acute) Cholelithiases (Acute) Arthritis of left hip Chronic sinusitis History of pancreatic cancer (Acute) Hx of renal cell cancer (Acute) r kidney Anxiety Depression Epigastric pain H/O gastroesophageal reflux (GERD) Hearing deficit Hyperglycemia Hypertension Osteoarthritis Skin cancer Surgical History History of total hip arthroplasty April 2016 l hip History of ERCP History of herniorrhaphy Family History Mother Hypertension Heart disease Social History Preferred Language: Hungarian Communication Ability: Effective Visual Impairment: Partially Limited Hearing Ability: Normal Beliefs That Will Affect Care: None Current Living Situation: Family Current Living Situation Comment: lives with daughter Other Information That Helps Us Care for You: No Feels Safe at Home: Yes Safety Concerns: Feels Safe At This Time Smoking Status: Never smoker Hx Alcohol Use: No Hx Substance Use: No Review of Systems Review of Systems: Patient denies fever, chills, chest pain, shortness of breath, or worsening abdominal pain Positive for jaundice, anorexia Physical Exam Physical Exam: PE: Patient awake and alert, NAD HEENT: EOMI, hearing within normal limits Respirations: Unlabored on room air CV: Regular rate Abdomen: Distended, soft, tender with light palpation Extremities: No edema Neuro: Alert and oriented x4 Results & Data Vital Signs (Past 12 Hours) Vital Signs Temp Pulse Pulse Resp BP Pulse Ox 09/29/18 11:14 97.5 F L 86 18 124/74 93 09/29/18 07:07 97.5 F L 71 18 106/62 96 09/29/18 03:00 97.5 F L 77 18 112/66 93 PG Care Time/CCT Total # of Minutes Spent Total Time Spent with Patient: Total time spent is greater than 50% in coordination of care (as documented) at patient's floor/unit and/or counseling patient: Time Spent Attending Total time spent 55 minutes with greater than 50% of the time spent at bedside discussing patient's current treatment options as well as goals of care.
[2018-09-29] MEDS: RIVAROXABAN 15 MG TAB PO SCH (21:00)
[2018-09-29] MEDS: HEPARIN SODIUM/DEXTROSE 25,000 UNITS/500 ML BAG IV SCH ×2 (23:17→23:20)
[2018-09-30] MEDS: POTASSIUM CHLORIDE 10 MEQ in SODIUM CHLORIDE 0.9% 1000ML 1,000 ML IV SCH (03:54)
[2018-09-30 06:24] LABS: Hematocrit (blood only) 26.9 % (37-47); Mean Corpuscular Hgb Conc 33.5 g/dL (32-36); Mean Corpuscular Volume 93.7 fL (80-100); Mean Platelet Volume 10.1 fL (7.4-10.4); Platelet Count 222 K/uL (130-400); RDW Coefficient of Variation 18.7 % (11.5-14.5); RDW Standard Deviation 62.9 fL (36.4-46.3); Red Blood Count 2.87 M/uL (4.2-5.4); White Blood Count 20.72 K/uL (4.8-10.8)
[2018-09-30 07:05] LABS: Albumin Globulin Ratio 0.4 (0.9-2); Albumin Level 1.3 gm/dl (3.4-5.0); BUN Creatinine Ratio 18.5 (10-20); Bilirubin,Total 14.5 mg/dl (0.2-1); Calcium 7.9 mg/dl (8.5-10.1); Creatinine Clr Calc Pharmacy 58.9 ml/min; Est GFR (African American) 91.9; Est GFR (Non-African American) 79.3; Globulin 3.1 gm/dl (2.5-4.0); Magnesium 1.6 mg/dl (1.8-2.4); Potassium 3.7 mmol/L (3.5-5.1); Total Protein 4.4 gm/dl (6.4-8.2)
[2018-09-30] MEDS: RIVAROXABAN 15 MG TAB PO SCH (08:12)
[2018-09-30] MEDS: POTASSIUM CHLORIDE 10 MEQ TABCR PO SCH (08:13)
[2018-09-30] MEDS: PANTOprazole 40 MG TAB PO SCH (08:14)
[2018-09-30] MEDS: CITALOPRAM 20 MG TAB PO SCH (08:14)
[2018-09-30] MEDS: CHOLECALCIFEROL 1,000 UNITS TAB PO SCH (08:14)
[2018-09-30] MEDS: DOCUSATE SODIUM 100 MG CAP PO SCH (08:14)
[2018-09-30] MEDS: POLYETHYLENE (MIRALAX) 17 GM PACK PO SCH (08:14)
[2018-09-30] MEDS: PIPERACILLIN/TAZOBACTAM 3.375 GM in DEXTROSE 5% 100 ML IV SCH ×2 (08:14)
[2018-09-30] MEDS: INSULIN ASPART 100 UNITS/ML 3 ML PEN SC SCH ×2 (08:26→12:40)
[2018-09-30] MEDS: MAGNESIUM SULFATE / D5W 1 GM/100 ML BAG IV SCH ×2 (09:57→10:58)
[2018-09-30] MEDS ORDERED: CIPROFLOXACIN 500 MG TAB PO SCH (10:00)
[2018-09-30] MEDS ORDERED: metroNIDAZOLE 500 MG TAB PO SCH (10:00)
--- NOTE | 2018-09-30 14:48 | Discharge Summary ---
Date of Service September 30, 2018 Admission HPI Per Admitting Provider Pleasant 73-year-old female with pancreatic cancer who has had worsening nausea, anorexia, weight loss for the past several weeks. She underwent outpatient CAT scan and was noted to have a saddle pulmonary embolus that is asymptomatic at this time. She does not feel short of breath and is not requiring oxygen. She is obviously jaundiced with total bilirubin 14.4. She did undergo ERCP with stent placement last January by [facility] gastroenterology. They will be consulted to see her. She is now on a heparin infusion. She is a DNR patient. Hypokalemia will be corrected with IV replacement. Clear liquid diet for now. Admission Exam Per Admitting Provider General-alert and oriented x3, cachectic appearing. No acute distress HEENT-head atraumatic and normocephalic, TMs intact bilaterally, pupils equal and reactive to light, extraocular muscles intact. Scleral icterus noted Neck-no lymphadenopathy or thyromegaly, trachea midline Chest-clear to auscultation percussion. No rales wheezing or rhonchi Cardiac-regular rate and rhythm, normal S1 and S2, no murmurs Abdomen-normal bowel sounds, mild right upper quadrant tenderness. No palpable masses Integumentjaundiced Extremities-no cyanosis, clubbing, or edema Neuro-cranial nerves II through XII intact, motor and sensory function within normal limits, strength symmetrical 5/5, no focal deficits Psych-normal affect, normal mood Principal Diagnosis Saddle PE, Metastatic Pancreatic Cancer Discharge Exam General: Resting comfortably HEENT: NC/AT; PERRLA with EOMI; Scleral icterus Neck: Supple and nontender Cardiac: RRR Lungs: CTA bilaterally Abdomen: Bowel normoactive X 4; Nontender to palp. Extremities: Warm. No edema present. Neuro: No focal weakness Skin: Diffuse jaundice. Discharge Data Allergies Allergy/AdvReac Type Severity Reaction Status Date / Time No Known Drug Allergies Allergy Verified 09/26/18 15:27 Consultations 09/26/18 15:10 ED Decision to Admit Stat 09/26/18 19:03 Consult Gastroenterology Routine 09/27/18 12:30 Consult Vascular Surgery Routine 09/27/18 16:58 Consult Oncology Routine 09/28/18 08:56 Consult Palliative Care Routine Procedures Performed Operation Date: 09/28/18 07:00 Actual Procedures p Endoscopic Retrograde Cholangiopancreatogram;(Not Applicable) - Shar Hyatt MD s Esophagogastroduodenoscopy with duodenal stent(Not Applicable) - Shar Hyatt MD Ordered Studies 09/26/18 13:22 CT head/brain wo con Stat US pancreas Stat CXR 09/27/18 09:19 US venous doppler LE BI Routine 09/28/18 15:00 FL ERCP biliary ductal Routine Hospital Course (1) Acute saddle pulmonary embolism: In setting of metastatic pancreatic cancer; noted on CT chest completed during staging scans as outpatient. Doppler of bilat LE: acute RLE DVT involving popliteal vein with involvement of posterior tibial and peroneal veins; superficial thrombus within left posterior knee region. Converted Heparin infusion to Xarelto 15 mg BID on 09/28/18. Vascular surgery consulted; discussed placement of IVC filter due to high risk procedure in setting of VTE -- did not complete IVC filter placement due to plan to transition to hospice at discharge. (2) Malignant neoplasm of pancreas: Completed staging scans as outpatient. Oncology consulted, transition to hospice at discharge due to progression of disease. Consulted palliative, appreciate input. Roxicodone 2.5 mg q6hr prn pain. Zofran and Compazine prn N/V -- concern that pt. will not be able to tolerate PO intake at home due to extensive tumor invasion of the GI tract. (3) Elevated bilirubin: Diffuse jaundice with elevated T. bili. Intra and extra hepatic biliary duct dilatation as well as pancreatic ductal dilatation on US. ERCP and EGD showed near complete duodenal obstruction with extensive tumor infiltration -- duodenal stent was placed. Could not stent biliary tree due to tumor invasion. Consulted GI, procedure as noted above. Continued Zosyn IV for coverage of cholangitis -- will convert to Augmentin at discharge for 3 day course. Monitored LFTs daily as inpatient, no improvement in T. bili. (4) Prolonged INR: INR prolonged -- likely related to liver mets. No indication for Vit K reversal. (5) Type 2 diabetes mellitus: Hgb A1C was 9.2. SSI coverage; will d/c insulin at discharge -- has not been requiring. (6) Renal mass: 1.8 cm mass in lower pole of the left kidney -- ?renal cell carcinoma, has not been biopsied. Transitioning to hospice at discharge. (7) Anemia: In setting of recent chemo. (8) Hypokalemia: Replaced as needed. (9) DVT prophylaxis: Xarelto BID. Stable for discharge to home on 09/30/18 with home hospice. Total Time Total Time Spent Total Time Spent (In Minutes): >30 minutes Total Time Includes: Examination of the Patient, Discharge Planning, Medication Reconciliation, Communication With Other Providers and Other Discharge Plan Discharge Items Patient Disposition: Hospice - Home Reason For Visit: SADDLE PE Discharge Diagnosis: Saddle PE Condition: Good Discharge Goals: Decrease discomfort, Improve function and Improve nutritional status Activity: Resume your previous activity Non-emergency contact: Primary Care Provider Call non-emergency contact if: you have any medication questions Follow-up/Referrals: Glenn Calles MD [Primary Care Provider] - Diet: Clear liquid Diet Comment: Advance diet as tolerated at home. Addtl Provider Instructions: 1. Acute Saddle PE * Please take Xarelto 15 mg BID for 20 days (until October 18) then convert to Xarelto 20 mg daily. 2. Metastatic Pancreatic Cancer * You will be discharged to home hospice; please contact your hospice nurse with any questions or concerns following discharge. * Please take Roxanol 2.5 mg every 4-6 hours for pain or shortness of breath. * Please take Ativan 0.5 mg every 4-6 hours for anxiety. * Please take Zofran 8 mg every 8 hours for nausea. 3. Duodenal/Biliary Obstruction in setting of metastatic pancreatic cancer * Please take Augmentin twice daily for treatment of abdominal infection. * You will need to complete a 3 day course of antibiotics at home. Prescriptions: New Xarelto 15 mg (42)- 20 mg (9) tablets,dose pack 1 ea PO BID Qty: 51 RF: 0 oxycodone 5 mg/5 mL solution 2.5 mg PO Q6H PRN (Reason: pain) Qty: 15 RF: 0 lorazepam [Ativan] 0.5 mg tablet 0.5 mg PO Q6H PRN (Reason: anxiety) Qty: 12 RF: 0 amoxicillin-pot clavulanate [Augmentin] 875-125 mg tablet 1 tab PO BID Qty: 6 RF: 0 Continued ondansetron HCl [Zofran] 8 mg tablet 8 mg PO TID PRN (Reason: nausea) RF: 0 docusate sodium [Colace] 100 mg Capsule 100 mg PO BID RF: 0 citalopram 20 mg Tablet 20 mg PO QAM RF: 0 Discontinued pen needle, diabetic [BD Ultra-Fine Susan Pen Needle] 32 gauge x 5/32" needle .ROUTE .MEDSUPPLY Qty: 10 RF: 0 FreeStyle Maya 14 Day [place] misc .ROUTE .MEDSUPPLY Qty: 1 RF: 0 FreeStyle Maya 14 Day Sensor kit .ROUTE .MEDSUPPLY Qty: 1 RF: 0 Humulin N NPH Insulin KwikPen 100 unit/mL (3 mL) insulin pen See Patient Comments .ROUTE .COMPLEX RF: 0 lancets [OneTouch Delica Lancets] 33 gauge misc .ROUTE .MEDSUPPLY Qty: 100 RF: 0 OneTouch Verio strip .ROUTE .MEDSUPPLY Qty: 10 RF: 0 cholecalciferol (vitamin D3) 1,000 unit capsule 1,000 units PO QAM RF: 0 pantoprazole 40 mg tablet,delayed release (DR/EC) 40 mg PO QAM RF: 0 polyethylene glycol 3350 [Miralax] 17 gram/dose Powder 17 g PO BID RF: 0 metoclopramide HCl 10 mg tablet 10 mg PO TIDM RF: 0 potassium chloride [Klor-Con M10] 10 mEq tablet,ER particles/crystals 10 meq PO QAM RF: 0 Stand-Alone Forms: [facility] Discharge Orders: Discharge Order (Routine); Ordered 09/30/18 Ordered By: Yusra Pacheco Admission Data Admit Date/Time: 09/26/18 16:43 Attending Provider: Yusra Pacheco Admit Provider: Stanton Love Primary Care Provider: Glenn Calles Other Providers: Adela Negro ; Dave Christie V ; Familia Mercado ; Naz Jolley Service: Medical Other Interventions: Discharge Summary Assessment (RN) Last Done: 09/30/18 12:26 Pending Studies at Discharge: No DC Date/Time DO NOT enter until pt leaves facility: 09/30/18 13:42 Supervising Physician Co-Signing Physician Notes PA Supervision Note: I personally saw and examined the patient. I verified all b[place] points and agree with BEV Watts with the following exceptions and/or additions: Pt with minimal abd pain, not SOB. Is comfortable and ready for dc. Denies pruritis despite significant jaundice AAOx3 Jaundiced, +scleral icterus RRR no mgr CTAB no wcr Stable for dc to home with Hospice
== END 2018-09-30 13:42 | disposition hospice, home (50) | DRG 176 ==
LOC: ED 13:05 → SUATTDRO 16:43 → 4W 16:43
DX: K31.5 Obstruction of duodenum; C78.7 Secondary malignant neoplasm of liver and intrahepatic bile duct; Z66 Do not resuscitate; D64.9 Anemia, unspecified; Z79.899 Other long term (current) drug therapy; R17 Unspecified jaundice; R18.8 Other ascites; R62.7 Adult failure to thrive; E11.9 Type 2 diabetes mellitus without complications; E88.09 Other disorders of plasma-protein metabolism, not elsewhere classified; J90 Pleural effusion, not elsewhere classified; I26.92 Saddle embolus of pulmonary artery without acute cor pulmonale; I82.431 Acute embolism and thrombosis of right popliteal vein; E87.6 Hypokalemia; I82.812 Embolism and thrombosis of superficial veins of left lower extremity; Z51.5 Encounter for palliative care; Z79.4 Long term (current) use of insulin; C25.0 Malignant neoplasm of head of pancreas